=== PATIENT | female | born 1970 | race Caucasian/White ===

== ENCOUNTER 2016-11-02 07:51 | Day surgery (SDC) | payer BC, OTHER ==
[~2016-11-02 07:51] MED LIST: PROPOFOL INJ 200 MG/20 ML VIAL IV ONE
[2016-11-02 09:40] VITALS: BP 103/67
--- NOTE | 2016-11-02 13:03 | Operative Report ---
Operative Report DATE OF SURGERY: 11/02/16 Operative Report: The risks benefits and alternatives of the procedure explained to the patient in detail and informed consent is obtained that GIF Olympus video scope was inserted into the patient's mouth and hypopharynx the esophagus is identified intubated and insufflated the scope was then advanced through the esophagus stomach and duodenum retroflexion maneuver is done the esophagus stomach and first and second portions of the duodenum examined PREOPERATIVE DIAGNOSIS: Epigastric pain rule out peptic ulcer disease POSTOPERATIVE DIAGNOSIS: Gastritis status post biopsy rule out Helicobacter pylori OPERATION: EGD with biopsy ANESTHESIA: LMAC TISSUE REMOVED OR ALTERED: Gastric specimens x2 obtain rule out Helicobacter pylori COMPLICATIONS: None. ESTIMATED BLOOD LOSS: none. INTRAOPERATIVE FINDINGS: Normal esophagus. Antral gastritis. First and second portions of the duodenum are normal. PROCEDURE: The patient tolerated the procedure well. No immediate postprocedure complications are noted. Patient is discharged in good condition. Discharge date 11/02/2016. Discharge diet: Regular. Discharge activity: Regular. 2-3 week follow-up to discuss findings. We'll await on biopsies. Patient is instructed to go the emergency room or call the office should there be any further problems or questions.
== END 2016-11-02 09:45 | disposition home or self-care (01) ==
LOC: END 07:51
PROVIDERS: ATTEND Internal Medicine Gastroenterology
PROC: 0DB68ZX Excision of Stomach, Via Natural or Artificial Opening Endoscopic, Diagnostic (ICD-10-PCS; principal; 2016-11-02 09:30)
DX: K29.50 Unspecified chronic gastritis without bleeding (principal); I10 Essential (primary) hypertension; E11.9 Type 2 diabetes mellitus without complications; G35 Multiple sclerosis; L93.0 Discoid lupus erythematosus; M79.7 Fibromyalgia; D68.61 Antiphospholipid syndrome; M19.90 Unspecified osteoarthritis, unspecified site; Z79.51 Long term (current) use of inhaled steroids; Z79.899 Other long term (current) drug therapy; Z87.891 Personal history of nicotine dependence; Z79.01 Long term (current) use of anticoagulants
CPT/HCPCS: 43239; 82962; 88342 ×2; 88305 ×2; J2704; 740

== ENCOUNTER 2017-07-04 12:47 | Emergency (ER) | payer BC, MEDICARE ==
[2017-07-04] MEDS ORDERED: HYDROMORPHONE HCL INJ/PF 2 MG/ML AMPULE IV ONE (12:55)
--- NOTE | 2017-07-04 13:01 | ER Document Report ---
ED General - General Stated Complaint: FALL/HEAD PAIN Time Seen by Provider: 07/04/17 12:49 Information source: Patient, Emergency Med Personnel, [facility] Records TRAVEL OUTSIDE OF THE [place] IN LAST 30 DAYS: No - HPI Patient complains to provider of: fall Onset: Just prior to arrival Quality of pain: Dull Similar symptoms previously: No Recently seen / treated by doctor: No Notes: Patient is a 47-year-old female with history of MS, CVA, with resulting right sided deficit of motor and sensory involvement. Patient is able to ambulate and does sometimes use a walker. Patient was walking down her ramp outside [facility] when she slipped because the ramp was wet. Patient states she landed on the back of her head and her lower back. Patient complains of headache, lower back pain. Patient also states she had a seizure which was witnessed by her . Patient does have existing seizure disorder. Patient states that although her right leg is typically numb and weak, Today it feels like it is worse after the fall. patient is also concerned about her INR being too elevated due to some bruising on her abdominal wall that was present prior to the fall. - Related Data Allergies/Adverse Reactions: adhesive [Adhesive] Allergy (Severe, Verified 07/04/17 13:13) Blisters latex [Latex] Allergy (Severe, Verified 07/04/17 13:13) Hives polyethylene glycol 3350 [From Miralax] Allergy (Severe, Verified 07/04/17 13:13 ) na and v rash povidone-iodine [From Betadine] Allergy (Severe, Verified 07/04/17 13:13) Blisters Soap [From Betadine] Allergy (Severe, Verified 07/04/17 13:13) Blisters bee sting Allergy (Severe, Uncoded 07/04/17 13:13) Anaphylaxis hurricane spray Allergy (Severe, Uncoded 07/04/17 13:13) Shortness of Breath Past Medical History - General Information source: Patient, [facility] Records - Social History Smoking Status: Never Smoker Family History: Reviewed & Not Pertinent - Past Medical History Cardiac Medical History: Reports: Hx Hypercholesterolemia, Hx Hypertension Denies: Hx Coronary Artery Disease, Hx Heart Attack Pulmonary Medical History: Reports: Hx Pneumonia - hx of in past Denies: Hx Asthma, Hx Bronchitis, Hx COPD Neurological Medical History: Reports: Hx Cerebrovascular Accident - 2014, Hx Migraine, Hx Seizures - x1, poss seizure/stroke second time Endocrine Medical History: Reports: Hx Diabetes Mellitus Type 2 GI Medical History: Reports: Hx Gastroesophageal Reflux Disease Musculoskeltal Medical History: Reports Hx Arthritis - osteoarthritis, Reports Hx Fibromyalgia, Reports Hx Multiple Sclerosis Psychiatric Medical History: Reports: Hx Depression Past Surgical History: Reports: Hx Appendectomy, Hx Section - 2, Hx Cholecystectomy. Denies: Hx Hysterectomy - Immunizations Immunizations up to date: Yes Hx Diphtheria, Pertussis, Tetanus Vaccination: Yes Review of Systems - Review of Systems Neurological/Psychological: Seizure, Headaches -: Yes All other systems reviewed and negative Physical Exam - Vital signs Vitals: Resp BP Pulse Ox 15 142/85 H 99 07/04/17 12:57 07/04/17 12:57 07/04/17 12:57 Interpretation: Normal - Notes Notes: Patient is awake, alert, oriented 4. - General General appearance: Appears well, Alert - HEENT Head: Normocephalic, Atraumatic Eyes: Normal Pupils: PERRL - Respiratory Respiratory status: No respiratory distress Chest status: Nontender Breath sounds: Normal Chest palpation: Normal - Cardiovascular Rhythm: Regular Heart sounds: Normal auscultation Murmur: No - Abdominal Inspection: Normal Distension: No distension Bowel sounds: Normal Tenderness: Nontender Organomegaly: No organomegaly Notes: Superficial ecchymosis noted to the left abdominal wall. - Back Back: Normal, Nontender - Extremities General upper extremity: Normal inspection, Nontender, Normal color, Normal ROM , Normal temperature General lower extremity: Normal inspection, Nontender, Normal color, Normal ROM , Normal temperature, Normal weight bearing. No: Ja's sign - Neurological Neuro grossly intact: Yes Cognition: Normal Orientation: AAOx4 Michelle Coma Scale Eye Opening: Spontaneous Michelle Coma Scale Verbal: Oriented [place] Coma Scale Motor: Obeys Commands [place] Coma Scale Total: 15 Speech: Normal Motor strength normal: LUE, LLE Sensory: Normal Notes: Patient with baseline weakness of right upper and lower extremity. Also baseline paresthesia to the right leg. - Psychological Associated symptoms: Normal affect, Normal mood - Skin Skin Temperature: Warm Skin Moisture: Dry Skin Color: Normal Course - Re-evaluation Re-evalutation: 07/04/17 14:03 Lab results reviewed and discussed with patient. The INR is therapeutic. CT head negative per radiologist. Lumbar spine x-rays negative per radiologist. Patient states her pain is improved. She has oral Dilaudid to take at home for pain. Will discharge home - Vital Signs Vital signs: Temp Pulse Resp BP Pulse Ox 98.2 F 15 142/85 H 99 07/04/17 13:22 07/04/17 12:57 07/04/17 12:57 07/04/17 12:57 - Laboratory Result Diagrams: 07/04/17 13:00 Laboratory results interpreted by me: 07/04/17 07/04/17 13:00 13:00 WBC 11.7 H RDW 15.0 H Absolute Neutrophils 8.7 H PT 24.9 H - Diagnostic Test Radiology reviewed: Reports reviewed Radiology results interpreted by me: 07/04/17 14:03 CT head negative, lumbar spine x-ray negative Discharge - Discharge Clinical Impression: Fall, Closed head injury, Lumbar contusion Condition: Good Disposition: HOME, SELF-CARE Instructions: Head Injury Precautions ([facility]), Contusion ([facility]) Additional Instructions: Your INR was therapeutic at 2.12. Continue on your Dilaudid as needed for pain. Follow-up with your primary care doctor. Return to the emergency department if worse or for any other problems.
[2017-07-04 13:20] LABS: PROTHROMBIN TIME 24.9 SEC (11.4-15.4)
[2017-07-04 13:43] LABS: ABSOLUTE LYMPHOCYTES (AUTO) 2.3 10^3/uL (0.5-4.7); ABSOLUTE MONOCYTES (AUTO) 0.6 10^3/uL (0.1-1.4); ABSOLUTE NEUT (AUTO) 8.7 10^3/uL (1.7-8.2); BASOPHILS % (AUTO) 0.3 % (0-2); EOSINOPHILS % (AUTO) 0.3 % (0-6); LYMPHOCYTES % (AUTO) 19.6 % (13-45); MEAN CORPUSCULAR HEMOGLOBIN 28.6 pg (27.0-33.4); MEAN CORPUSCULAR HGB CONC 32.6 g/dL (32.0-36.0); MEAN CORPUSCULAR VOLUME 88 fl (80-97); MONOCYTES % (AUTO) 5.3 % (3-13); RED BLOOD COUNT 4.89 10^6/uL (3.72-5.28); SEGMENTED NEUTROPHILS % (AUTO) 74.5 % (42-78); WHITE BLOOD COUNT 11.7 10^3/uL (4.0-10.5)
--- NOTE | 2017-07-04 13:59 | RADIOLOGY REPORT (SQ) ---
EXAM DESCRIPTION: CT HEAD WITHOUT COMPLETED DATE/TIME: 07/04/2017 1:45 pm REASON FOR STUDY: fall, on coumadin COMPARISON: 06/07/2016 TECHNIQUE: Axial images acquired through the brain without intravenous contrast. Images reviewed wi th bone, brain and subdural windows. Images stored on PACS. All CT scanners at this facility use dose modulation, iterative reconstruction, and/or weight based d osing when appropriate to reduce radiation dose to as low as reasonably achievable (ALARA). [facility]: Dose Right [facility]: CareDose [facility]: Dose Right [facility]: Teradose 4D [facility]: [employer] RADIATION DOSE: Up-to-date CT equipment and radiation dose reduction techniques were employed. CTDIv ol: 64.6 mGy. DLP: 1034 mGy-cm. mGy. LIMITATIONS: None. FINDINGS: VENTRICLES: Normal size and contour. CEREBRUM: No masses. No hemorrhage. No midline shift. No evidence for acute infarction. Normal gra y/white matter differentiation. No areas of low density in the white matter. CEREBELLUM: No masses. No hemorrhage. No alteration of density. No evidence for acute infarction. EXTRAAXIAL SPACES: No fluid collections. No masses. ORBITS AND GLOBE: No intra- or extraconal masses. Normal contour of globe without masses. CALVARIUM: No fracture. PARANASAL SINUSES: No fluid or mucosal thickening. SOFT TISSUES: No mass or hematoma. OTHER: No other significant finding. IMPRESSION: NORMAL BRAIN CT WITHOUT CONTRAST. EVIDENCE OF ACUTE STROKE: NO. COMMENT: Quality ID # [id number]: Final reports with documentation of one or more dose reduction techniques (e.g., Automated exposure control, adjustment of the mA and/or kV according to patient size, use of iterative reconstruction technique) TECHNICAL DOCUMENTATION: JOB ID: [id number] [employer]- All Rights Reserved
--- NOTE | 2017-07-04 14:00 | RADIOLOGY REPORT (SQ) ---
EXAM DESCRIPTION: L SPINE 2 VIEWS COMPLETED DATE/TIME: 07/04/2017 1:50 pm REASON FOR STUDY: fall COMPARISON: None. NUMBER OF VIEWS: Three views. TECHNIQUE: AP, lateral and sacral radiographic images acquired of the lumbar spine. LIMITATIONS: None. FINDINGS: MINERALIZATION: Normal. SEGMENTATION: Normal. No transitional anatomy. ALIGNMENT: Normal. VERTEBRAE: Maintained height. No fracture or worrisome bone lesion. DISCS: Preserved height. No significant osteophytes or end plate irregularity. POSTERIOR ELEMENTS: Pedicles and facets are intact. No pars defect or posterior arch defects. HARDWARE: None in the spine. PARASPINAL SOFT TISSUES: Normal. PELVIS: Intact as visualized. No fractures or worrisome bone lesions. SI joints intact. OTHER: No other significant finding. IMPRESSION: NORMAL 3 VIEW LUMBAR SPINE. TECHNICAL DOCUMENTATION: JOB ID: [id number] [employer]- All Rights Reserved
[2017-07-04 14:21] VITALS: BP 119/71
== END 2017-07-04 14:21 | disposition home or self-care (01) ==
LOC: ER 12:47
DX: S09.90XA Unspecified injury of head, initial encounter (principal); S30.0XXA Contusion of lower back and pelvis, initial encounter; R51 Headache; M54.5 Low back pain; W10.2XXA Fall (on)(from) incline, initial encounter; I69.351 Hemiplegia and hemiparesis following cerebral infarction affecting right dominant side; G40.909 Epilepsy, unspecified, not intractable, without status epilepticus; R58 Hemorrhage, not elsewhere classified; E11.9 Type 2 diabetes mellitus without complications; I10 Essential (primary) hypertension; Z91.048 Other nonmedicinal substance allergy status; Z91.040 Latex allergy status; Z88.8 Allergy status to other drugs, medicaments and biological substances; Z88.3 Allergy status to other anti-infective agents; Z91.030 Bee allergy status
CPT/HCPCS: 99284; 96374; 36415; 85025; 85610; 72100; 70450; J1170

== ENCOUNTER 2017-12-06 08:15 | Emergency (ER) | payer BC, MEDICARE ==
[2017-12-06] MEDS ORDERED: MORPHINE SULFATE 10 MG/ML INJ IM ONE (08:50)
--- NOTE | 2017-12-06 09:32 | RADIOLOGY REPORT (SQ) ---
EXAM DESCRIPTION: KNEE RIGHT 2 VIEWS COMPLETED DATE/TIME: 12/06/2017 9:22 am REASON FOR STUDY: fall, head injury, neck fusion, on coumadiin COMPARISON: None. NUMBER OF VIEWS: Four views. TECHNIQUE: AP, lateral, and both oblique radiographic images acquired of the right knee. LIMITATIONS: None. FINDINGS: MINERALIZATION: Normal. BONES: Minimal osteophytic change medial knee joint. Peaking of intercondylar eminence. Osteophytic change patellofemoral joint. JOINT: No effusion. SOFT TISSUES: No soft tissue swelling. No radio-opaque foreign body. OTHER: No other significant finding. IMPRESSION: Degenerative arthritis right knee. TECHNICAL DOCUMENTATION: JOB ID: [id number] SC-[id number] 2010 [employer]- All Rights Reserved Reading location - IP/workstation name: [email or web address]
--- NOTE | 2017-12-06 09:39 | RADIOLOGY REPORT (SQ) ---
EXAM DESCRIPTION: HIP LEFT AP/LATERAL COMPLETED DATE/TIME: 12/06/2017 9:22 am REASON FOR STUDY: fall, pain COMPARISON: None. NUMBER OF VIEWS: Two views. TECHNIQUE: AP pelvis and additional frog-leg view of the left hip. LIMITATIONS: None. FINDINGS: MINERALIZATION: Normal. LEFT HIP: No fracture or dislocation. No worrisome bone lesions. RIGHT HIP: No fracture or dislocation. No worrisome bone lesions. PUBIS AND ISCHIUM: No fracture. PELVIS: No fracture. SACRUM: No fracture or dislocation. No worrisome bone lesions. LOWER LUMBAR SPINE: No fracture or dislocation. No worrisome bone lesions. No significant disc disea se. SOFT TISSUES: No findings. OTHER: No other significant finding. IMPRESSION: NEGATIVE STUDY OF THE LEFT HIP AND PELVIS. NO RADIOGRAPHIC EVIDENCE OF ACUTE INJURY. TECHNICAL DOCUMENTATION: JOB ID: [id number] [employer]- All Rights Reserved Reading location - IP/workstation name: [email or web address]
--- NOTE | 2017-12-06 09:40 | RADIOLOGY REPORT (SQ) ---
EXAM DESCRIPTION: SHOULDER LEFT 2 OR MORE VIEWS COMPLETED DATE/TIME: 12/06/2017 9:22 am REASON FOR STUDY: fall, head injury, neck fusion, on coumadiin COMPARISON: None. NUMBER OF VIEWS: Three views. TECHNIQUE: Internal rotation, external rotation, and Y view images acquired of the left shoulder. LIMITATIONS: None. FINDINGS: MINERALIZATION: Normal. BONES: There is degenerative change at the left AC joint. . JOINTS: No dislocation. VISUALIZED LUNGS AND RIBS: No pneumothorax. No rib fracture. SOFT TISSUES: No radiopaque foreign body. OTHER: Previous lower cervical fusion noted. IMPRESSION: Left AC arthrosis. Otherwise, normal left shoulder. TECHNICAL DOCUMENTATION: JOB ID: [id number] SC-[id number] 2010 [email or web address]- All Rights Reserved Reading location - IP/workstation name: [email or web address]
--- NOTE | 2017-12-06 09:57 | RADIOLOGY REPORT (SQ) ---
EXAM DESCRIPTION: CT HEAD WITHOUT COMPLETED DATE/TIME: 12/06/2017 9:43 am REASON FOR STUDY: fall, head injury, neck fusion, on coumadiin COMPARISON: 07/04/2017. TECHNIQUE: Axial images acquired through the brain without intravenous contrast. Images reviewed wi th bone, brain and subdural windows. All CT scanners at this facility use dose modulation, iterative reconstruction, and/or weight based d osing when appropriate to reduce radiation dose to as low as reasonably achievable (ALARA). [facility]: Dose Right [facility]: CareDose [facility]: Dose Right [facility]: Teradose 4D [facility]: [email or web address] RADIATION DOSE: CT Rad equipment meets quality standard of care and radiation dose reduction techniq ues were employed. CTDIvol: 53.2 mGy. DLP: 991 mGy-cm. mGy. LIMITATIONS: None. FINDINGS: VENTRICLES: Normal size and contour. CEREBRUM: No masses. No hemorrhage. No midline shift. No evidence for acute infarction. Normal gra y/white matter differentiation. No areas of low density in the white matter. CEREBELLUM: No masses. No hemorrhage. No alteration of density. No evidence for acute infarction. EXTRAAXIAL SPACES: No fluid collections. No masses. ORBITS AND GLOBE: No intra- or extraconal masses. Normal contour of globe without masses. CALVARIUM: No fracture. PARANASAL SINUSES: No fluid or mucosal thickening. SOFT TISSUES: No mass or hematoma. OTHER: No other significant finding. IMPRESSION: NORMAL BRAIN CT WITHOUT CONTRAST. EVIDENCE OF ACUTE STROKE: No COMMENT: Quality ID # 436: Final reports with documentation of one or more dose reduction techniques (e.g., Automated exposure control, adjustment of the mA and/or kV according to patient size, use of iterative reconstruction technique) TECHNICAL DOCUMENTATION: JOB ID: [id number] SC-69 2010 [email or web address]- All Rights Reserved Reading location - IP/workstation name: [email or web address]
--- NOTE | 2017-12-06 10:20 | RADIOLOGY REPORT (SQ) ---
EXAM DESCRIPTION: CT CERVICAL SPINE WITHOUT COMPLETED DATE/TIME: 12/06/2017 9:43 am REASON FOR STUDY: fall, head injury, neck fusion, on coumadin COMPARISON: None. TECHNIQUE: Axial images acquired through the cervical spine without intravenous contrast. Images re viewed with lung, soft tissue and bone windows. Reconstructed coronal and sagittal MPR images review ed. Images stored on PACS. All CT scanners at this facility use dose modulation, iterative reconstruction, and/or weight based d osing when appropriate to reduce radiation dose to as low as reasonably achievable (ALARA). [facility]: Dose Right [facility]: CareDose [facility]: Dose Right [facility]: Teradose 4D [facility]: [employer] RADIATION DOSE: CT Rad equipment meets quality standard of care and radiation dose reduction techniq ues were employed. CTDIvol: 23.1 mGy. DLP: 456 mGy-cm. mGy. LIMITATIONS: None. FINDINGS: ALIGNMENT: Anatomic. MINERALIZATION: Normal. VERTEBRAL BODIES: No fractures or dislocation. DISCS: No significant disc disease. FACETS, LATERAL MASSES, POSTERIOR ELEMENTS: No fractures. No dislocation. No acute findings. HARDWARE: There is an anterior plate at C5-6 VISUALIZED RIBS: No fractures. LUNG APICES AND SOFT TISSUES: No significant or acute findings. OTHER: No other significant finding. IMPRESSION: Surgical changes with no acute abnormality. TECHNICAL DOCUMENTATION: JOB ID: [id number] Quality ID # [id number]: Final reports with documentation of one or more dose reduction techniques (e.g., Au tomated exposure control, adjustment of the mA and/or kV according to patient size, use of iterative reconstruction technique) 2010 [employer]- All Rights Reserved Reading location - IP/workstation name: [email or web address]
--- NOTE | 2017-12-06 10:30 | ER Document Report ---
ED Fall - General Chief Complaint: Fall Stated Complaint: FALL/HEAD INJURY Time Seen by Provider: 12/06/17 08:39 Mode of Arrival: Medic Information source: Patient Notes: Patient is a 47-year-old female with antiphospholipid antibody syndrome who presents to the ER today for falling out of bed, rolling out of bed in the middle of her sleep last night, hitting her head on the hardwood floor next to the bed, complaining of left sided pain throughout her entire body as she did land on that side. Patient also states she thinks she caught her right knee on part of the bed that is wooden that is designed to keep her in the bed. Patient takes Coumadin for antiphospholipid antibody syndrome and checks her INR daily to every 2 days at home. Patient states her last INR was 2.0 yesterday. She denies any loss of consciousness, nausea, vomiting, blurred vision. Family in the room states that she is acting normally. TRAVEL OUTSIDE OF THE [place] IN LAST 30 DAYS: No - Related data Allergies/Adverse Reactions: adhesive [Adhesive] Allergy (Severe, Verified 07/04/17 13:13) Blisters latex [Latex] Allergy (Severe, Verified 07/04/17 13:13) Hives polyethylene glycol 3350 [From Miralax] Allergy (Severe, Verified 07/04/17 13:13 ) na and v rash povidone-iodine [From Betadine] Allergy (Severe, Verified 07/04/17 13:13) Blisters Soap [From Betadine] Allergy (Severe, Verified 07/04/17 13:13) Blisters Penicillins Allergy (Mild, Verified 12/06/17 08:17) Hives bee sting Allergy (Severe, Uncoded 07/04/17 13:13) Anaphylaxis hurricane spray Allergy (Severe, Uncoded 07/04/17 13:13) Shortness of Breath Past Medical History - General Information source: Patient - Social History Smoking Status: Current Every Day Smoker Chew tobacco use (# tins/day): No Frequency of alcohol use: None Drug Abuse: None Family History: Reviewed & Not Pertinent Patient has suicidal ideation: No Patient has homicidal ideation: No - Past Medical History Cardiac Medical History: Reports: Hx Hypercholesterolemia, Hx Hypertension Denies: Hx Coronary Artery Disease, Hx Heart Attack Pulmonary Medical History: Reports: Hx Pneumonia - hx of in past Denies: Hx Asthma, Hx Bronchitis, Hx COPD Neurological Medical History: Reports: Hx Cerebrovascular Accident - 2014, Hx Migraine, Hx Seizures - x1, poss seizure/stroke second time Endocrine Medical History: Reports: Hx Diabetes Mellitus Type 2 Renal/ Medical History: Denies: Hx Peritoneal Dialysis GI Medical History: Reports: Hx Gastroesophageal Reflux Disease Musculoskeltal Medical History: Reports Hx Arthritis - osteoarthritis, Reports Hx Fibromyalgia, Reports Hx Multiple Sclerosis Psychiatric Medical History: Reports: Hx Depression Past Surgical History: Reports: Hx Appendectomy, Hx Section - 2, Hx Cholecystectomy. Denies: Hx Hysterectomy - Immunizations Immunizations up to date: Yes Hx Diphtheria, Pertussis, Tetanus Vaccination: Yes Review of Systems - Review of Systems Constitutional: No symptoms reported EENT: No symptoms reported Cardiovascular: No symptoms reported Respiratory: No symptoms reported Gastrointestinal: No symptoms reported Genitourinary: No symptoms reported Female Genitourinary: No symptoms reported Musculoskeletal: See HPI Skin: No symptoms reported Hematologic/Lymphatic: No symptoms reported Neurological/Psychological: No symptoms reported Physical Exam - Vital signs Vitals: Temp Pulse Resp BP Pulse Ox 97.5 F 109 H 16 133/74 H 100 12/06/17 08:21 12/06/17 08:21 12/06/17 08:21 12/06/17 08:21 12/06/17 08:21 - Notes Notes: PHYSICAL EXAMINATION: GENERAL: In her own c-collar, in no acute distress. HEAD: Atraumatic, normocephalic. EYES: Pupils equal round and reactive to light, extraocular movements intact, sclera anicteric, conjunctiva are normal. NECK: Normal range of motion, supple without lymphadenopathy LUNGS: CTAB and equal. No wheezes rales or rhonchi. HEART: Regular rate and rhythm without murmurs ABDOMEN: Soft, no tenderness. No guarding, no rebound BACK: no vertebral tenderness, normal ROM GI/: no CVA tenderness EXTREMITIES: Tender to left shoulder, left hip, right medial knee, normal range of motion but with some pain, no pitting edema. No cyanosis. NEUROLOGICAL: Cranial nerves grossly intact. Normal sensory/motor exams. PSYCH: Normal mood, normal affect. SKIN: Warm, Dry, normal turgor, mild ecchymosis noted to the right medial knee Course - Re-evaluation Re-evalutation: 04/04/18 09:38 X-rays of the left hip, left shoulder, right knee negative for any acute pathology CT of the head and cervical spine negative for any acute pathology. Patient stable for discharge. Patient was given pain medication here in the ER , but does take OxyContin multiple times a day as part of her normal regimen. I advised her to continue that regimen as prescribed, I will not provide anything more for pain as there was no objective finding except for some bruising to her right knee today. - Vital Signs Vital signs: Temp Pulse Resp BP Pulse Ox 97.8 F 99 16 130/79 H 100 12/06/17 10:49 12/06/17 10:49 12/06/17 10:49 12/06/17 10:49 12/06/17 10:49 Discharge - Discharge Clinical Impression: Hip pain, left Head injury Qualifiers: Encounter type: initial encounter Qualified Code(s): S09.90XA - Unspecified injury of head, initial encounter Contusion of right knee Qualifiers: Encounter type: initial encounter Qualified Code(s): S80.01XA - Contusion of right knee, initial encounter Condition: Stable Disposition: HOME, SELF-CARE Additional Instructions: Return immediately for any new or worsening symptoms. Follow up with primary care provider, call tomorrow to make followup appointment. Referrals: JARON LYON MD [Primary Care Provider] - Follow up as needed
[2017-12-06 10:50] VITALS: BP 130/79
== END 2017-12-06 10:50 | disposition home or self-care (01) ==
LOC: ER 08:15
DX: S80.01XA Contusion of right knee, initial encounter (principal); S09.90XA Unspecified injury of head, initial encounter; M25.552 Pain in left hip; W06.XXXA Fall from bed, initial encounter; Y93.84 Activity, sleeping; I10 Essential (primary) hypertension; E11.9 Type 2 diabetes mellitus without complications; F17.200 Nicotine dependence, unspecified, uncomplicated; D68.61 Antiphospholipid syndrome; Z79.01 Long term (current) use of anticoagulants; Z79.891 Long term (current) use of opiate analgesic; Z91.048 Other nonmedicinal substance allergy status; Z91.040 Latex allergy status; Z88.8 Allergy status to other drugs, medicaments and biological substances; Z88.3 Allergy status to other anti-infective agents; Z88.0 Allergy status to penicillin; Z87.892 Personal history of anaphylaxis; Z91.030 Bee allergy status
CPT/HCPCS: 99284; 96372; 73502; 73560; 73030; 70450; 72125; J2270

== ENCOUNTER 2018-08-23 09:33 | Emergency (ER) | payer MEDICARE, OTHER ==
[2018-08-23] MEDS ORDERED: MORPHINE SULFATE 10 MG/ML INJ IM ONE (10:10)
--- NOTE | 2018-08-23 10:14 | ER Document Report ---
ED General - General Chief Complaint: Leg Swelling Stated Complaint: LEFT LEG PAIN, SWELLING Time Seen by Provider: 08/23/18 10:10 Mode of Arrival: Wheelchair Information source: Patient, REPLACED BY [facility] Records Notes: 48-year-old female presents with complaint of left lower extremity pain that started 5 days prior to arrival after a trip and fall landing on her left side. Patient states that she has had exquisite throbbing, tenderness along the left leg. She denies history of DVT, PE. She is currently on Coumadin and Lovenox for her lupus. She denies any head injury, preceding shortness of breath or chest pain. TRAVEL OUTSIDE OF THE [place] IN LAST 30 DAYS: No - HPI Onset: Last week Onset/Duration: Gradual, Persistent Quality of pain: Throbbing Severity: Moderate Associated symptoms: denies: Chest pain, Fever, Nausea, Vomiting, Shortness of breath Exacerbated by: Movement, Walking Relieved by: Denies Similar symptoms previously: No Recently seen / treated by doctor: No - Related Data Allergies/Adverse Reactions: adhesive [Adhesive] Allergy (Severe, Verified 08/23/18 09:46) Blisters latex [Latex] Allergy (Severe, Verified 08/23/18 09:46) Hives polyethylene glycol 3350 [From Miralax] Allergy (Severe, Verified 08/23/18 09:46 ) na and v rash povidone-iodine [From Betadine] Allergy (Severe, Verified 08/23/18 09:46) Blisters Soap [From Betadine] Allergy (Severe, Verified 08/23/18 09:46) Blisters Penicillins Allergy (Mild, Verified 08/23/18 09:46) Hives bee sting Allergy (Severe, Uncoded 08/23/18 09:46) Anaphylaxis hurricane spray Allergy (Severe, Uncoded 08/23/18 09:46) Shortness of Breath Past Medical History - General Information source: Patient, REPLACED BY [facility] Records - Social History Smoking Status: Former Smoker Chew tobacco use (# tins/day): No Frequency of alcohol use: None Drug Abuse: None Lives with: Spouse/Significant other Family History: Reviewed & Not Pertinent Patient has suicidal ideation: No Patient has homicidal ideation: No - Past Medical History Cardiac Medical History: Reports: Hx Hypercholesterolemia, Hx Hypertension Denies: Hx Coronary Artery Disease, Hx Heart Attack Pulmonary Medical History: Reports: Hx Pneumonia - hx of in past Denies: Hx Asthma, Hx Bronchitis, Hx COPD Neurological Medical History: Reports: Hx Cerebrovascular Accident - 2014, Hx Migraine, Hx Seizures - x1, poss seizure/stroke second time Endocrine Medical History: Reports: Hx Diabetes Mellitus Type 2 Renal/ Medical History: Denies: Hx Peritoneal Dialysis GI Medical History: Reports: Hx Gastroesophageal Reflux Disease Musculoskeletal Medical History: Reports Hx Arthritis - osteoarthritis, Reports Hx Fibromyalgia, Reports Hx Multiple Sclerosis Psychiatric Medical History: Reports: Hx Depression Past Surgical History: Reports: Hx Appendectomy, Hx Section - 2, Hx Cholecystectomy, Hx Gynecologic Surgery. Denies: Hx Hysterectomy - Immunizations Immunizations up to date: Yes Hx Diphtheria, Pertussis, Tetanus Vaccination: Yes Review of Systems - Review of Systems Notes: REVIEW OF SYSTEMS: CONSTITUTIONAL : Denies fever, chills, or sweats. Denies recent illness. Denies weight loss, recent hospitalizations. EENT: Denies visual changes, eye pain. Denies sore throat, oral lesions, difficulty swallowing. CARDIOVASCULAR: Denies chest pain. Denies palpitations. Denies lower extremity edema. RESPIRATORY: Denies cough. Denies shortness of breath, wheezing. GASTROINTESTINAL: Denies abdominal pain or distention. Denies nausea, vomiting , or diarrhea. Denies blood in vomitus, stools, or per rectum. Denies black, tarry stools. Denies constipation. GENITOURINARY: Denies difficulty urinating, painful urination, frequency, blood in urine, or vaginal discharge. MUSCULOSKELETAL: Denies back or neck pain or stiffness. SKIN: Denies rash, lesions or sores. HEMATOLOGIC : Denies easy bruising or bleeding. LYMPHATIC: Denies swollen glands. NEUROLOGICAL: Denies confusion or altered mental status. Denies loss of consciousness. Denies dizziness or lightheadedness. Denies headache. Denies weakness or paralysis. Denies problems difficulty with ambulation, slurred speech. Denies sensory loss, numbness, or tingling. Denies seizures. PSYCHIATRIC: Denies anxiety or stress. Denies depression, suicidal ideation, or homicidal ideation. Denies visual or auditory hallucinations. Physical Exam - Vital signs Vitals: Temp Pulse Resp BP Pulse Ox 98.5 F 93 20 109/65 99 08/23/18 09:38 08/23/18 09:38 08/23/18 09:38 08/23/18 09:38 08/23/18 09:38 - Notes Notes: PHYSICAL EXAMINATION: GENERAL: Well-appearing, well-nourished and in no acute distress. HEAD: Atraumatic, normocephalic. EYES: Pupils equal round and reactive to light, extraocular movements intact, conjunctiva are normal. ENT: Nares patent, oropharynx clear without exudates. Moist mucous membranes. NECK: Normal range of motion, supple without lymphadenopathy LUNGS: Breath sounds clear to auscultation bilaterally and equal. No wheezes rales or rhonchi. HEART: Regular rate and rhythm without murmurs ABDOMEN: Soft, nontender, nondistended abdomen. No guarding, no rebound. No masses appreciated. Female : deferred Musculoskeletal: Normal range of motion, no pitting or edema. No cyanosis. NEUROLOGICAL: Cranial nerves grossly intact. Normal speech, normal gait. Normal sensory, motor exams PSYCH: Normal mood, normal affect. SKIN: Warm, Dry, normal turgor, no rashes or lesions noted. Course - Re-evaluation Re-evalutation: 08/23/18 20:12 Laboratory 08/23/18 10:23 PT 28.5 H INR 2.54 Tibia/Fibula X-Ray 08/23/18 10:10 IMPRESSION: NEGATIVE STUDY OF THE LEFT TIBIA AND FIBULA. NO RADIOGRAPHIC EVIDENCE OF ACUTE INJURY. Venous Doppler Study 08/23/18 10:10 IMPRESSION: NO EVIDENCE OF DVT OR SVT IN THE LEFT LEG. Knee X-Ray 08/23/18 10:13 IMPRESSION: NEGATIVE STUDY OF THE LEFT KNEE. NO RADIOGRAPHIC EVIDENCE OF ACUTE INJURY. Temp Pulse Resp BP Pulse Ox 98.0 F 94 20 110/77 96 08/23/18 12:41 08/23/18 12:41 08/23/18 09:38 08/23/18 12:41 08/23/18 12:41 08/23/18 20:12 Patient presents with symptoms most consistent with an acute cellulitis. Vitals within normal limits. Patient does not meet sepsis criteria is overall very well in appearance. Imaging not consistent with DVT. Patient will be started on Bactrim at this time will discharge with return precautions and follow-up recommendations. Patient is tolerating p.o. She said no episodes of vomiting. Think that it is reasonable to attempt an outpatient course of antibiotics. Verbal discharge instructions given a the bedside and opportunity for questions given. Medication warnings reviewed. Patient is in agreement with this plan and has verbalized understanding of return precautions and the need for primary care follow-up in the next 24-72 hours. 08/23/18 20:15 08/23/18 20:16 - Vital Signs Vital signs: Temp Pulse Resp BP Pulse Ox 98.0 F 94 20 110/77 96 08/23/18 12:41 08/23/18 12:41 08/23/18 09:38 08/23/18 12:41 08/23/18 12:41 - Laboratory Laboratory results interpreted by me: 08/23/18 10:23 PT 28.5 H - Diagnostic Test Radiology reviewed: Image reviewed, Reports reviewed Discharge - Discharge Clinical Impression: Left leg pain, Left leg cellulitis Contusion Qualifiers: Encounter type: initial encounter Contusion area: knee Laterality: left Qualified Code(s): S80.02XA - Contusion of left knee, initial encounter Traumatic ecchymosis of left lower leg Qualifiers: Encounter type: initial encounter Qualified Code(s): S80.12XA - Contusion of left lower leg, initial encounter Condition: Good Disposition: HOME, SELF-CARE Instructions: Cellulitis ([facility]), Contusion ([facility]) Additional Instructions: The rash is likely due to infection of your skin. You need to take the antibiotics as prescribed. Do not stop even if the rash goes away until you have completed all the antibiotics. The area of redness was traced out here in the emergency department with a marking pen. You need to return to emergency department if the redness spreads outside of this area by more than 2 cm in any direction. You should also return if you develop fevers with temperature greater than 101, persistent vomiting, worsening pain, or have any other symptoms that are concerning to you. Please see your pain management physician for further pain control. Follow up with your [id number] hours for further care or return to the ED IMMEDIATELY if symptoms worsen or you have any concerns. If you cannot afford to follow up with your primary care physician a list of low cost clinics have been provided at the end of your discharge papers as well. Most prescribed medications have multiple side effects. The safest thing to do is when filling your prescription speak to your pharmacist regarding possible interactions with your normal home medications and over the counter medications such as Ibuprofen, Tylenol, Benadryl. If you experience any symptoms that cause you discomfort or concern you should discontinue the medication immediately and return to the emergency room or call your primary care physician. Prescriptions: Sulfamethoxazole/Trimethoprim [Bactrim Ds Tablet] 1 each PO BID 10 Days #20 tablet Referrals: JARON LYON MD [Primary Care Provider] - Follow up as needed
--- NOTE | 2018-08-23 10:49 | RADIOLOGY REPORT (SQ) ---
EXAM DESCRIPTION: TIBIA FIBULA LEFT COMPLETED DATE/TIME: 08/23/2018 10:39 am REASON FOR STUDY: fall anterior andrade and patellar pain, fall injury COMPARISON: Left knee films same date NUMBER OF VIEWS: Two views. TECHNIQUE: Two radiographic images acquired of the left tibia and fibula to include the knee and ank le in at least one projection. LIMITATIONS: None. FINDINGS: MINERALIZATION: Normal. BONES: No acute fracture or dislocation. No worrisome bone lesions. SOFT TISSUES: No obvious swelling or foreign body. OTHER: No other significant finding. IMPRESSION: NEGATIVE STUDY OF THE LEFT TIBIA AND FIBULA. NO RADIOGRAPHIC EVIDENCE OF ACUTE INJURY. TECHNICAL DOCUMENTATION: JOB ID: [id number] [employer]- All Rights Reserved Reading location - IP/workstation name: [email or web address]
[2018-08-23 10:51] LABS: INTERNATIONAL RATION (INR) 2.54; PROTHROMBIN TIME 28.5 SEC (11.4-15.4)
--- NOTE | 2018-08-23 10:51 | RADIOLOGY REPORT (SQ) ---
EXAM DESCRIPTION: KNEE LEFT 4 VIEW COMPLETED DATE/TIME: 08/23/2018 10:39 am REASON FOR STUDY: fall , injury, patellar and prepatellar pain COMPARISON: Left tibia and fibula two views same date NUMBER OF VIEWS: Four views. TECHNIQUE: AP, lateral, and both oblique radiographic images acquired of the left knee. LIMITATIONS: None. FINDINGS: MINERALIZATION: Normal. BONES: No acute fracture or dislocation. No worrisome bone lesions. JOINT: No effusion. SOFT TISSUES: No soft tissue swelling. No radio-opaque foreign body. OTHER: No other significant finding. IMPRESSION: NEGATIVE STUDY OF THE LEFT KNEE. NO RADIOGRAPHIC EVIDENCE OF ACUTE INJURY. TECHNICAL DOCUMENTATION: JOB ID: [id number] [employer]- All Rights Reserved Reading location - IP/workstation name: [email or web address]
[2018-08-23] MEDS ORDERED: HYDROMORPHONE HCL INJ/PF 2 MG/ML AMPULE IM ONE (12:12)
[2018-08-23] MEDS ORDERED: SULFAMETHOXAZOLE/TRIMETHOPRIM 800-160 MG TABLET PO ONE (12:12)
--- NOTE | 2018-08-23 12:19 | RADIOLOGY REPORT (SQ) ---
EXAM DESCRIPTION: VENOUS UNILATERAL LOWER COMPLETED DATE/TIME: 08/23/2018 12:09 pm REASON FOR STUDY: pain left leg / Hx clots COMPARISON: None. TECHNIQUE: Dynamic and static steven scale and color images acquired of the left leg venous system. Se lected spectral images acquired with additional compression and augmentation maneuvers. The contralat eral common femoral vein and saphenofemoral junction were also imaged. Images stored on PACS. LIMITATIONS: None. FINDINGS: COMMON FEMORAL: Normal phasicity, compression and augmentation. No visualized echogenic ma terial on steven scale. No defects on color images. FEMORAL: Normal compression and augmentation. No visualized echogenic material on steven scale. No defe cts on color images. POPLITEAL: Normal compression, augmentation. No visualized echogenic material on steven scale. No defec ts on color images. CALF VESSELS: Normal compression, augmentation. No visualized echogenic material on steven scale. No de fects on color images. GSV and SSV: Normal compression, augmentation. No visualized echogenic material on steven scale. No def ects on color images. ANY DEEP VENOUS INSUFFICIENCY: Not evaluated. ANY EVIDENCE OF POPLITEAL CYST: No. OTHER: No other significant finding. CONTRALATERAL COMMON FEMORAL VEIN AND SAPHENOFEMORAL JUNCTION: Normal phasicity, compression and augmentation. No visualized echogenic material on steven scale. No de fects on color images. IMPRESSION: NO EVIDENCE OF DVT OR SVT IN THE LEFT LEG. TECHNICAL DOCUMENTATION: JOB ID: [id number] [employer]- All Rights Reserved Reading location - IP/workstation name: [email or web address]
[2018-08-23 12:42] VITALS: BP 110/77
== END 2018-08-23 12:44 | disposition home or self-care (01) ==
LOC: ER 09:33
DX: S80.02XA Contusion of left knee, initial encounter (principal); S80.12XA Contusion of left lower leg, initial encounter; L03.116 Cellulitis of left lower limb; M79.89 Other specified soft tissue disorders; W01.0XXA Fall on same level from slipping, tripping and stumbling without subsequent striking against object, initial encounter; E78.00 Pure hypercholesterolemia, unspecified; I10 Essential (primary) hypertension; E11.9 Type 2 diabetes mellitus without complications; Z91.040 Latex allergy status; Z88.0 Allergy status to penicillin; Z86.73 Personal history of transient ischemic attack (TIA), and cerebral infarction without residual deficits; Z79.02 Long term (current) use of antithrombotics/antiplatelets; Z90.49 Acquired absence of other specified parts of digestive tract
CPT/HCPCS: 99284; 96372; 36415; 85610; 93971; 73564; 73590; J2270; J1170; A9270

== ENCOUNTER 2018-08-31 09:35 | Inpatient (IN) | payer MEDICARE, OTHER ==
[2018-08-31] MEDS ORDERED: CEFTRIAXONE 1 GM/D5W RTU 1 GM/50 ML RTUPB IV ONE (10:17)
--- NOTE | 2018-08-31 10:38 | ER Document Report ---
ED Medical Screen (RME) - General TRAVEL OUTSIDE OF THE [place] IN LAST 30 DAYS: No <IVELISSE SEALS - Last Filed: 08/31/18 10:25> <CHARAN LECHUGA - Last Filed: 08/31/18 12:06> - General Chief Complaint: Leg Pain Stated Complaint: LEG PAIN Time Seen by Provider: 08/31/18 10:10 Notes: 48 year old male with complaints of a fall that occurred about 2 weeks ago. Patient states she landed on her left knee during this fall. Patient states that she was seen here on 08/24 and was sent home on Bactrim. Patient states she had a rash at that point and it was "splotchy" but after starting the bactrim the "splotchiness" disappears and turned to an "all over redness". Patient states she had a similar RLE rash in the past. I have greeted and performed a rapid initial assessment of this patient. A comprehensive ED assessment and evaluation of the patient, analysis of test results, and completion of the medical decision making process will be conducted by additional ED providers. Review of systems: Musculoskeletal: LLE leg pain Skin: LLE Rash PHYSICAL EXAM GENERAL: Alert, interacts well. No acute distress. HEAD: Normocephalic, atraumatic. EYES: Pupils equal, round, and reactive to light. Extraocular movements intact. ENT: Oral mucosa moist, tongue midline. NECK: Full range of motion. Supple. Trachea midline. LUNGS: No respiratory distress. EXTREMITIES: Grossly swollen left proximal andrade. Unable to visualize the left knee secondary to pants. NEUROLOGICAL: Alert and oriented x3. Normal speech. PSYCH: Normal affect, normal mood. SKIN: Warm and dry. Erythema distal to the swelling on the left lower extremity. (IVELISSE SEALS) - Related Data Allergies/Adverse Reactions: adhesive [Adhesive] Allergy (Severe, Verified 08/31/18 10:15) Blisters latex [Latex] Allergy (Severe, Verified 08/31/18 10:15) Hives polyethylene glycol 3350 [From Miralax] Allergy (Severe, Verified 08/31/18 10:15) na and v rash povidone-iodine [From Betadine] Allergy (Severe, Verified 08/31/18 10:15) Blisters Soap [From Betadine] Allergy (Severe, Verified 08/31/18 10:15) Blisters Penicillins Allergy (Mild, Verified 08/31/18 10:15) Hives ciprofloxacin Allergy (Verified 08/31/18 10:15) levofloxacin [From Levaquin] Allergy (Verified 08/31/18 10:15) bee sting Allergy (Severe, Uncoded 08/31/18 10:15) Anaphylaxis hurricane spray Allergy (Severe, Uncoded 08/31/18 10:15) Shortness of Breath Past Medical History - Social History Chew tobacco use (# tins/day): No Frequency of alcohol use: None Drug Abuse: None - Past Medical History Cardiac Medical History: Reports: Hx Hypercholesterolemia, Hx Hypertension Denies: Hx Coronary Artery Disease, Hx Heart Attack Pulmonary Medical History: Reports: Hx Pneumonia - hx of in past Denies: Hx Asthma, Hx Bronchitis, Hx COPD Neurological Medical History: Reports: Hx Cerebrovascular Accident - 2014, Hx Migraine, Hx Seizures - x1, poss seizure/stroke second time Endocrine Medical History: Reports: Hx Diabetes Mellitus Type 2 Renal/ Medical History: Denies: Hx Peritoneal Dialysis GI Medical History: Reports: Hx Gastroesophageal Reflux Disease Musculoskeltal Medical History: Reports Hx Arthritis - osteoarthritis, Reports Hx Fibromyalgia, Reports Hx Multiple Sclerosis Psychiatric Medical History: Reports: Hx Depression Past Surgical History: Reports: Hx Appendectomy, Hx Section - 2, Hx Cholecystectomy, Hx Gynecologic Surgery. Denies: Hx Hysterectomy - Immunizations Immunizations up to date: Yes Hx Diphtheria, Pertussis, Tetanus Vaccination: Yes History of Influenza Vaccine for 06/2017 - 11/2017 Season: No <IVELISSE SEALS - Last Filed: 08/31/18 10:25> - Vital signs Vitals: Temp Pulse Resp BP Pulse Ox 99.1 F 102 H 16 118/70 96 08/31/18 09:39 08/31/18 09:39 08/31/18 09:39 08/31/18 09:39 08/31/18 09:39 Course - Laboratory Result Diagrams: 08/31/18 10:38 08/31/18 10:38 <CHARAN LECHUGA - Last Filed: 08/31/18 12:06> - Vital Signs Vital signs: Temp Pulse Resp BP Pulse Ox 99.1 F 102 H 16 118/70 96 08/31/18 09:39 08/31/18 09:39 08/31/18 09:39 12/26/18 09:39 08/31/18 09:39 - Laboratory Laboratory results interpreted by me: 08/31/18 08/31/18 10:38 10:38 RBC 3.71 L Hgb 11.1 L Hct 32.9 L RDW 17.3 H Glucose 136 H Doctor's Discharge <IVELISSE SEALS - Last Filed: 08/31/18 10:25> <CHARAN LECHUGA - Last Filed: 08/31/18 12:06> - Discharge Referrals: JARON LYON MD [Primary Care Provider] - Follow up as needed Scribe Documentation - Scribe Written by Scribe:: Nabila Su, 08/31/2018 1038 acting as scribe for :: Selena <IVELISSE SEALS - Last Filed: 08/31/18 10:25>
[2018-08-31 10:59] LABS: ABSOLUTE BASOPHILS # (AUTO) 0.1 10^3/uL (0.0-0.2); ABSOLUTE EOSINOPHILS # (AUTO) 0.3 10^3/uL (0.0-0.6); ABSOLUTE LYMPHOCYTES (AUTO) 3.5 10^3/uL (0.5-4.7); ABSOLUTE MONOCYTES (AUTO) 0.8 10^3/uL (0.1-1.4); ABSOLUTE NEUT (AUTO) 5.6 10^3/uL (1.7-8.2); BASOPHILS % (AUTO) 0.7 % (0-2); EOSINOPHILS % (AUTO) 2.6 % (0-6); HEMATOCRIT 32.9 % (36.0-47.0); HEMOGLOBIN 11.1 g/dL (12.0-15.5); LYMPHOCYTES % (AUTO) 34.3 % (13-45); MEAN CORPUSCULAR HEMOGLOBIN 29.8 pg (27.0-33.4); MEAN CORPUSCULAR HGB CONC 33.7 g/dL (32.0-36.0); MEAN CORPUSCULAR VOLUME 89 fl (80-97); MONOCYTES % (AUTO) 7.4 % (3-13); PLATELET COUNT 271 10^3/uL (150-450); RED BLOOD COUNT 3.71 10^6/uL (3.72-5.28); RED CELL DISTRIBUTION WIDTH 17.3 % (11.5-14.0); TOTAL CELLS COUNTED % (AUTO) 100 %; WHITE BLOOD COUNT 10.2 10^3/uL (4.0-10.5)
[2018-08-31 11:20] LABS: ALANINE AMINOTRANSFERASE 39 U/L (9-52); ALBUMIN 3.7 g/dL (3.5-5.0); ALKALINE PHOSPHATASE 96 U/L (38-126); ANION GAP 9 (5-19); ASPARTATE AMINO TRANSFERASE 19 U/L (14-36); BILIRUBIN,DIRECT 0.3 mg/dL (0.0-0.4); BILIRUBIN,TOTAL 0.3 mg/dL (0.2-1.3); BLOOD UREA NITROGEN 14 mg/dL (7-20); CALCIUM 9.1 mg/dL (8.4-10.2); CARBON DIOXIDE 29 mmol/L (22-30); CHLORIDE 101 mmol/L (98-107); GLUCOSE 136 mg/dL (75-110); POTASSIUM 4.3 mmol/L (3.6-5.0); SODIUM 139.3 mmol/L (137-145); TOTAL PROTEIN 6.8 g/dL (6.3-8.2)
[2018-08-31] MEDS ORDERED: HYDROMORPHONE HCL INJ/PF 2 MG/ML AMPULE IV ONE (11:38)
--- NOTE | 2018-08-31 11:39 | ER Document Report ---
ED General <DAMIAN COOLEY - Last Filed: 08/31/18 12:46> - General Mode of Arrival: Ambulatory Information source: Patient TRAVEL OUTSIDE OF THE [place] IN LAST 30 DAYS: No <REBECCA HYLTON - Last Filed: 08/31/18 13:33> - General Chief Complaint: Leg Pain Stated Complaint: LEG PAIN Time Seen by Provider: 08/31/18 10:10 Notes: Patient is a 48 year old female with HLD, diabetes type 2 , GERD, fibromyalgia, arthritis,Lupus, Antiphospholipid antibody syndrome presents to the emergency department complaining of redness and pain to the left leg. Patient states approximately 2 weeks ago she fell and hit her left leg just below the knee. She states she soon developed a red rash and swelling and reported to the emergency department on 08/23/2018 and discharged with Bactrim. Patient states the symptoms have worsened since then. She states she had similar symptoms in the past and was diagnosed with a strep infection of the right leg and admitted into the hospital for five days. Patient states she is in a lot of pain and asks for Dilaudid. Patient states her PCP is Dr. Edison Pickett. She is currently prescribed Coumadin, 100 mg of Nucynta 4x daily for chronic pain management. She is also prescribed Lovenox if her INR drops below 2.0. (REBECCA HYLTON) - Related Data Allergies/Adverse Reactions: adhesive [Adhesive] Allergy (Severe, Verified 08/31/18 10:15) Blisters latex [Latex] Allergy (Severe, Verified 08/31/18 10:15) Hives polyethylene glycol 3350 [From Miralax] Allergy (Severe, Verified 08/31/18 10:15) na and v rash povidone-iodine [From Betadine] Allergy (Severe, Verified 08/31/18 10:15) Blisters Soap [From Betadine] Allergy (Severe, Verified 08/31/18 10:15) Blisters Penicillins Allergy (Mild, Verified 08/31/18 10:15) Hives ciprofloxacin Allergy (Verified 08/31/18 10:15) levofloxacin [From Levaquin] Allergy (Verified 08/31/18 10:15) bee sting Allergy (Severe, Uncoded 08/31/18 10:15) Anaphylaxis hurricane spray Allergy (Severe, Uncoded 08/31/18 10:15) Shortness of Breath Past Medical History - General Information source: Patient - Social History Smoking Status: Never Smoker Chew tobacco use (# tins/day): No Frequency of alcohol use: None Drug Abuse: None Family History: Reviewed & Not Pertinent Patient has suicidal ideation: No Patient has homicidal ideation: No - Past Medical History Cardiac Medical History: Reports: Hx Hypercholesterolemia, Hx Hypertension Pulmonary Medical History: Reports: Hx Pneumonia - hx of in past Neurological Medical History: Reports: Hx Cerebrovascular Accident - 2014, Hx Migraine, Hx Seizures - x1, poss seizure/stroke second time Endocrine Medical History: Reports: Hx Diabetes Mellitus Type 2 GI Medical History: Reports: Hx Gastroesophageal Reflux Disease Musculoskeletal Medical History: Reports Hx Arthritis - osteoarthritis, Reports Hx Fibromyalgia, Reports Hx Multiple Sclerosis Psychiatric Medical History: Reports: Hx Depression Past Surgical History: Reports: Hx Appendectomy, Hx Section - 2, Hx Cholecystectomy, Hx Gynecologic Surgery - Immunizations Immunizations up to date: Yes Hx Diphtheria, Pertussis, Tetanus Vaccination: Yes <REBECCA HYLTON - Last Filed: 08/31/18 13:33> - Medical History Notes: Antiphospholipid antibody syndrome. Lupus. (REBECCA HYLTON) Review of Systems - Review of Systems Constitutional: No symptoms reported EENT: No symptoms reported Cardiovascular: No symptoms reported Respiratory: No symptoms reported Gastrointestinal: No symptoms reported Genitourinary: No symptoms reported Female Genitourinary: No symptoms reported Musculoskeletal: See HPI Skin: See HPI Hematologic/Lymphatic: No symptoms reported Neurological/Psychological: No symptoms reported -: Yes All other systems reviewed and negative <REBECCA HYLTON - Last Filed: 08/31/18 13:33> Physical Exam <REBECCA HYLTON - Last Filed: 08/31/18 13:33> - Vital signs Vitals: Temp Pulse Resp BP Pulse Ox 99.1 F 102 H 16 118/70 96 08/31/18 09:39 08/31/18 09:39 08/31/18 09:39 08/31/18 09:39 08/31/18 09:39 - Notes Notes: GENERAL: Alert, interacts well. No acute distress. HEAD: Normocephalic, atraumatic. EYES: Pupils equal, round, and reactive to light. Extraocular movements intact. ENT: Oral mucosa moist, tongue midline. NECK: Full range of motion. Supple. Trachea midline. LUNGS: Clear to auscultation bilaterally, no wheezes, rales, or rhonchi. No respiratory distress. HEART: Regular rate and rhythm. No murmurs, gallops, or rubs. ABDOMEN: Soft, morbidly obese, non-tender. Non-distended. Bowel sounds present in all 4 quadrants. EXTREMITIES: Moves all 4 extremities spontaneously. Left proximal anterior lateral tibia is swollen and erythematous, distally there is blotchy erythema. Erythema to the left lateral ankle and dorsal lateral foot. Pitting edema to the left ankle and foot. Warm to touch. NEUROLOGICAL: Alert and oriented x3. Normal speech. PSYCH: Normal affect, normal mood. SKIN: Warm, dry, normal turgor. No rashes or lesions noted. (REBECCA HYLTON) Course - Laboratory Result Diagrams: 08/31/18 10:38 08/31/18 10:38 - Consults Dr. Mena Time consulted: 12:50 Consulted provider: will come to ER <DAMIAN COOLEY - Last Filed: 08/31/18 12:46> - Laboratory Result Diagrams: 08/31/18 10:38 08/31/18 10:38 <REBECCA HYLTON - Last Filed: 08/31/18 13:33> - Vital Signs Vital signs: Temp Pulse Resp BP Pulse Ox 99.1 F 102 H 16 118/70 96 08/31/18 09:39 08/31/18 09:39 08/31/18 09:39 08/31/18 09:39 08/31/18 09:39 - Laboratory Laboratory results interpreted by me: 08/31/18 08/31/18 08/31/18 10:38 10:38 12:14 RBC 3.71 L Hgb 11.1 L Hct 32.9 L RDW 17.3 H PT 50.1 H* INR 5.19 H* Glucose 136 H Discharge - Discharge Admitting Provider: Hospitalist Unit Admitted: Medical Floor <DAMIAN COOLEY - Last Filed: 08/31/18 12:46> <REBECCA HYLTON - Last Filed: 08/31/18 13:33> - Discharge Clinical Impression: Cellulitis of right anterior lower leg, Antiphospholipid antibody syndrome, Anticoagulated on Coumadin Diabetes mellitus type II, controlled Qualifiers: Diabetes mellitus oil heaterman insulin use: unspecified oil heaterman insulin use status Diabetes mellitus complication status: with unspecified complications Qualified Code(s): E11.8 - Type 2 diabetes mellitus with unspecified complications Condition: Stable Disposition: ADMITTED INPATIENT Scribe Attestation: 08/31/18 12:50 I personally performed the services described in the documentation, reviewed and edited the documentation which was dictated to the scribe in my presence, and it accurately records my words and actions. (DAMIAN COOLEY)
[2018-08-31 13:02] LABS: INTERNATIONAL RATION (INR) 5.19
[2018-08-31 13:03] LABS: PROTHROMBIN TIME 50.1 SEC (11.4-15.4)
[2018-08-31] MEDS ORDERED: ACETAMINOPHEN 325 MG TABLET PO PRN (13:48)
[2018-08-31] MEDS ORDERED: ALBUTEROL SULFATE 0.042% NEB (1.25 MG/3 ML) AMPUL NEB PRN (13:55)
[2018-08-31] MEDS ORDERED: (PENDING PHARMACY ID) (Meclizine Hcl [Meclizine Hcl] 25 MG) PO SCH (14:00)
[2018-08-31] MEDS ORDERED: CEFAZOLIN INJ 1 GM VIAL IV SCH (14:00)
[2018-08-31] MEDS ORDERED: INSULIN REG, HUMAN 100 UNIT/ML 3 ML VIAL (PYX) SUBCUT PRN (14:03)
[2018-08-31] MEDS ORDERED: DEXTROSE 50%-WATER 25 GM/50 ML DISP.SYRIN IV PRN ×2 (14:03)
[2018-08-31] MEDS ORDERED: DEXTROSE 40% GEL 15 GM TUBE PO PRN ×2 (14:03)
[2018-08-31] MEDS ORDERED: GLUCAGON,HUMAN RECOMB 1 MG INJ IM PRN (14:03)
[2018-08-31] MEDS ORDERED: HYDROMORPHONE HCL INJ/PF 2 MG/ML AMPULE IV PRN (14:04)
--- NOTE | 2018-08-31 14:27 | PDOC H&P ---
History of Present Illness Admission Date/PCP: 08/31/18 13:02 JARON LYON MD Patient complains of: Left lower leg swelling and redness History of Present Illness: MIGUEL JONES is a 48 year old female with history of morbid obesity, SLE, antiphospholipid antibody, multiple sclerosis, diabetes, hypertension, anxiety, depression, fibromyalgia, degenerative disc disease came to the emergency room today with complaints of worsening left lower leg swelling redness and pain for the last 2 weeks. She was here in the emergency room on of this month was given Bactrim and apparently the medication did not help her at all and came to the emergency room again today with worsening of the symptoms. She is given the history of low-grade fever. Pain scale according to her is 10 x 10. These things started after a fall injured her left lower leg. Chills and Reiger's. Headaches dizziness. Is given the history of previous right lower leg cellulitis with strep infection. She is also given the history of chronic pain and goes to the pain clinic. Emergency room blood cultures was done patient was started on IV Rocephin medical consult was called for admission. According to the patient previous admission was done ultrasound was done to rule out DVT. Lately those tests came back normal. Past Medical History Cardiac Medical History: Reports: Hyperlipidema, Hypertension Denies: Coronary Artery Disease, Myocardial Infarction Pulmonary Medical History: Reports: Pneumonia - hx of in past Denies: Asthma, Bronchitis, Chronic Obstructive Pulmonary Disease (COPD) Neurological Medical History: Reports: Migraine, Seizures - x1, poss seizure/stroke second time Endocrine Medical History: Reports: Diabetes Mellitus Type 2 GI Medical History: Reports: Gastroesophageal Reflux Disease Musculoskeltal Medical History: Reports: Arthritis - osteoarthritis, Fibromyalgia Psychiatric Medical History: Reports: Depression Hematology: Reports: Anemia Past Surgical History Past Surgical History: Reports: Appendectomy, Section - 2, Cholecystectomy Denies: Hysterectomy Social History Smoking Status: Never Smoker Frequency of Alcohol Use: None Hx Recreational Drug Use: No Hx Prescription Drug Abuse: No - Advance Directive Resuscitation Status: Full Code Family History Family History: Reviewed & Not Pertinent Parental Family History Reviewed: Yes Children Family History Reviewed: Yes Sibling(s) Family History Reviewed.: Yes Medication/Allergy Home Medications: Albuterol Sulfate [Proair HFA Inhalation Aerosol 8.5 gm MDI] 1 puff IH Q6HP PRN 08/31/18 Amantadine HCl [Symmetrel 100 mg Capsule] 100 mg PO QAM 08/31/18 Aripiprazole [Abilify 2 mg Tablet] 2 mg PO DAILY 08/31/18 Atorvastatin Calcium [Lipitor 20 mg Tablet] 20 mg PO QHS 08/31/18 Baclofen [Baclofen 10 mg Tablet] 10 mg PO Q8 08/31/18 Dexlansoprazole [Dexilant 60 mg Capsule] 60 mg PO QAM 08/31/18 Gabapentin [Neurontin] 1,200 mg PO Q8 08/31/18 Insulin Aspart [Novolog Flexpen] 8 units SQ MEALS 08/31/18 Insulin Glargine,Hum.rec.anlog [Lantus Insulin 100 Unit/mL] 34 units SQ QHS 08/31/18 Liraglutide [Victoza 2-Adrien] 1.8 mg SQ DAILY 08/31/18 Lisinopril [Zestril] 5 mg PO QAM 08/31/18 Metoprolol Tartrate [Lopressor 25 mg Tablet] 12.5 mg PO Q12 08/31/18 Suvorexant [Belsomra] 20 mg PO HSP PRN 08/31/18 Tapentadol HCl [Nucynta] 100 mg PO Q6HP PRN 08/31/18 Venlafaxine HCl [Venlafaxine HCl ER] 150 mg PO DAILY 08/31/18 Warfarin Sodium [Coumadin 2.5 mg Tablet] 2.5 mg PO SUMOWEFR@1000 08/31/18 Warfarin Sodium [Coumadin 5 mg Tablet] 5 mg PO DAILY 08/31/18 Allergies/Adverse Reactions: adhesive [Adhesive] Allergy (Severe, Verified 08/31/18 10:15) Blisters latex [Latex] Allergy (Severe, Verified 08/31/18 10:15) Hives polyethylene glycol 3350 [From Miralax] Allergy (Severe, Verified 08/31/18 10:15) na and v rash povidone-iodine [From Betadine] Allergy (Severe, Verified 08/31/18 10:15) Blisters Soap [From Betadine] Allergy (Severe, Verified 08/31/18 10:15) Blisters Penicillins Allergy (Mild, Verified 08/31/18 10:15) Hives ciprofloxacin Allergy (Verified 08/31/18 10:15) levofloxacin [From Levaquin] Allergy (Verified 08/31/18 10:15) bee sting Allergy (Severe, Uncoded 08/31/18 10:15) Anaphylaxis hurricane spray Allergy (Severe, Uncoded 08/31/18 10:15) Shortness of Breath Review of Systems Constitutional: PRESENT: fatigue, weakness. ABSENT: fever(s), headache(s), weight gain, weight loss Cardiovascular: ABSENT: chest pain, dyspnea on exertion, edema Respiratory: ABSENT: dyspnea Gastrointestinal: ABSENT: constipation, diarrhea, nausea, vomiting Genitourinary: ABSENT: dysuria, hematuria Musculoskeletal: PRESENT: as per HPI, other - lt lower leg swelling and pain Neurological: ABSENT: abnormal gait, abnormal speech, confusion, dizziness, focal weakness, syncope Psychiatric: ABSENT: anxiety, depression, homidical ideation, suicidal ideation Physical Exam Vital Signs: Temp Pulse Resp BP Pulse Ox 99.1 F 102 H 16 118/70 96 08/31/18 09:39 08/31/18 09:39 08/31/18 09:39 08/31/18 09:39 08/31/18 09:39 Intake & Output 08/30/18 08/31/18 09/01/18 06:59 06:59 06:59 Intake Total 50 Balance 50 Weight 122.3 kg General appearance: PRESENT: mild distress Head exam: PRESENT: atraumatic Eye exam: PRESENT: PERRLA Neck exam: ABSENT: carotid bruit, JVD, lymphadenopathy, thyromegaly Respiratory exam: PRESENT: clear to auscultation lorelei. ABSENT: rales, rhonchi, wheezes Cardiovascular exam: PRESENT: RRR. ABSENT: diastolic murmur, rubs, systolic murmur GI/Abdominal exam: PRESENT: normal bowel sounds, soft. ABSENT: distended, guarding, mass, organolmegaly, rebound, tenderness Extremities exam: PRESENT: other - Left lower leg swelling with erythema increased warmth to touch and extremely tender to touch. Neurological exam: PRESENT: alert, awake, oriented to person, oriented to place, oriented to time, oriented to situation, CN II-XII grossly intact. ABSENT: motor sensory deficit Psychiatric exam: PRESENT: appropriate affect, normal mood. ABSENT: homicidal ideation, suicidal ideation Results Laboratory Results: 08/31/18 10:38 08/31/18 10:38 08/31/18 08/31/18 10:38 10:38 WBC 10.2 RBC 3.71 L Hgb 11.1 L Hct 32.9 L MCV 89 MCH 29.8 MCHC 33.7 RDW 17.3 H Plt Count 271 Seg Neutrophils % 55.0 Lymphocytes % 34.3 Monocytes % 7.4 Eosinophils % 2.6 Basophils % 0.7 Absolute Neutrophils 5.6 Absolute Lymphocytes 3.5 Absolute Monocytes 0.8 Absolute Eosinophils 0.3 Absolute Basophils 0.1 Sodium 139.3 Potassium 4.3 Chloride 101 Carbon Dioxide 29 Anion Gap 9 BUN 14 Creatinine 0.65 Est GFR ( Amer) > 60 Est GFR (Non-Af Amer) > 60 Glucose 136 H Calcium 9.1 Total Bilirubin 0.3 AST 19 ALT 39 Alkaline Phosphatase 96 Total Protein 6.8 Albumin 3.7 Assessment & Plan - Diagnosis (1) Cellulitis of left leg Is this a current diagnosis for this admission?: Yes Plan: 08/31/2018-the plan is to put the patient in medical floor as an inpatient blood cultures were sent. To start on Ancef 1 g IV every 8 hours as per the ID recommendations. X-ray of the left lower leg and ultrasound was ordered to rule out osteomyelitis and DVT. And is to resume her home medications. She was placed on Dilaudid 1 mg IV every 6 as needed for pain. My opinion patient may need to stay at least 3-4 days in the hospital for IV antibiotic therapy. (2) Antiphospholipid antibody syndrome Is this a current diagnosis for this admission?: Yes Plan: 08/31/2018 patient is on warfarin for antiphospholipid antibody syndrome INR came back as 5.19. We are going to hold warfarin for now and check INR on daily basis. (3) Diabetes mellitus type II, controlled Qualifiers: Diabetes mellitus complex case manager insulin use: unspecified complex case manager insulin use status Diabetes mellitus complication status: with unspecified complications Qualified Code(s): E11.8 - Type 2 diabetes mellitus with unspecified complications Is this a current diagnosis for this admission?: Yes Plan: 08/31/2018 plan is to put her on sliding scale, diabetic diet, check hemoglobin A1c tomorrow. The latest blood sugar is 136. (4) Morbid obesity with BMI of 40.0-44.9, adult Is this a current diagnosis for this admission?: Yes Plan: 08/31/2018 patient BMI is more than 45 diet exercise lifestyle modification were encouraged. Dietary consult was requested. (5) Hypertension Is this a current diagnosis for this admission?: Yes Plan: 08/31/2018 patient's blood pressure today is 113/64 plan is to resume home medications. (6) Chronic pain syndrome Is this a current diagnosis for this admission?: Yes Plan: 08/31/2018 patient has chronic pain syndrome plan is to restart her hydromorphone 8 mg p.o. nightly and also started on Dilaudid 1 mg IV every 6 as needed for pain. - Time Time Spent: 50 to 70 Minutes Critical Time spent with patient: Less than 15 minutes Medications reviewed and adjusted accordingly: Yes Anticipated discharge: Home
[2018-08-31 14:31] LABS: PROTHROMBIN TIME 51.7 SEC (11.4-15.4)
--- NOTE | 2018-08-31 15:13 | RADIOLOGY REPORT (SQ) ---
EXAM DESCRIPTION: TIBIA FIBULA LEFT COMPLETED DATE/TIME: 08/31/2018 3:01 pm REASON FOR STUDY: rt leg swelling fall injury left leg pain last week, continued left leg swelling COMPARISON: None. NUMBER OF VIEWS: Two views. TECHNIQUE: Two radiographic images acquired of the left tibia and fibula to include the knee and ank le in at least one projection. LIMITATIONS: None. FINDINGS: MINERALIZATION: Normal. BONES: No acute fracture or dislocation. No worrisome bone lesions. SOFT TISSUES: No radiopaque foreign body or soft tissue gas. There is subcutaneous edema over the pr etibial and medial left lower leg soft tissues. OTHER: No other significant finding. IMPRESSION: No fracture. No soft tissue gas. No radiopaque foreign body. Soft tissue swelling is present TECHNICAL DOCUMENTATION: JOB ID: [id number] [email or web address]- All Rights Reserved Reading location - IP/workstation name: [email or web address]
[2018-08-31] MEDS: BACLOFEN 10 MG TABLET PO SCH ×2 (15:16→19:04)
[2018-08-31] MEDS ORDERED: LANSOPRAZOLE 30 MG TAB.RAP.DR PO SCH (17:00)
[2018-08-31] MEDS ORDERED: MYCOPHENOLATE MOFETIL 1000 MG PO SCH (18:00)
[2018-08-31] MEDS ORDERED: MYCOPHENOLATE MOFETIL 250 MG CAPSULE PO SCH (18:00)
[2018-08-31] MEDS: DOCUSATE SODIUM 100 MG CAPSULE PO SCH (18:52)
[2018-08-31] MEDS: CEFAZOLIN SODIUM 1.5 GM in DEXTROSE 5%-WATER 100 ML IV SCH (18:53)
[2018-08-31] MEDS: MECLIZINE HCL 25 MG TABLET PO SCH (19:04)
[2018-08-31] MEDS: SUCRALFATE 1 GM TABLET PO SCH (19:04)
[2018-08-31] MEDS ORDERED: HYDROMORPHONE HCL 8 MG PO SCH (22:00)
[2018-08-31] MEDS ORDERED: HYDROXYZINE PAMOATE 25 MG CAPSULE PO SCH (22:00)
[2018-08-31] MEDS ORDERED: TRAMADOL HCL 50 MG TABLET PO PRN (22:28)
[2018-08-31] MEDS ORDERED: (PENDING PHARMACY ID) (Suvorexant [Belsomra] 20 MG) PO SCH (22:45)
[2018-09-01] MEDS ORDERED: (PENDING PHARMACY ID) (Tapentadol Hcl [Nucynta] 100 MG) PO SCH
[2018-09-01] MEDS ORDERED: CLONAZEPAM 1 MG TABLET PO ONE (00:15)
[2018-09-01] MEDS ORDERED: ATORVASTATIN CALCIUM 20 MG TABLET PO ONE (00:15)
[2018-09-01] MEDS ORDERED: INSULIN GLARGINE,HUM.REC.ANLOG 300 UNIT/3 ML INSULN.PEN SUBCUT ONE ×2 (00:15→00:38)
[2018-09-01] MEDS ORDERED: HYDROXYZINE PAMOATE 25 MG CAPSULE PO ONE (00:15)
[2018-09-01] MEDS ORDERED: METOPROLOL TARTRATE 25 MG TABLET PO ONE (00:15)
[2018-09-01] MEDS ORDERED: GABAPENTIN 400 MG CAPSULE PO ONE (00:15)
[2018-09-01] MEDS ORDERED: HYDROMORPHONE HCL 2 MG TABLET PO ONE (00:15)
[2018-09-01] MEDS ORDERED: ATORVASTATIN CALCIUM 10 MG TABLET ONE (00:37)
[2018-09-01] MEDS ORDERED: GABAPENTIN 400 MG CAPSULE ONE (00:37)
[2018-09-01] MEDS ORDERED: VENLAFAXINE HCL 75 MG CAP.SR.24H PO ONE (01:00)
[2018-09-01] MEDS: CEFAZOLIN SODIUM 1.5 GM in DEXTROSE 5%-WATER 100 ML IV SCH ×3 (01:36→18:09)
[2018-09-01] MEDS ORDERED: LANSOPRAZOLE 30 MG TAB.RAP.DR PO SCH (06:00)
[2018-09-01 07:49] LABS: ABSOLUTE BASOPHILS # (AUTO) 0.1 10^3/uL (0.0-0.2); ABSOLUTE EOSINOPHILS # (AUTO) 0.2 10^3/uL (0.0-0.6); ABSOLUTE LYMPHOCYTES (AUTO) 3.2 10^3/uL (0.5-4.7); ABSOLUTE MONOCYTES (AUTO) 0.7 10^3/uL (0.1-1.4); ABSOLUTE NEUT (AUTO) 4.6 10^3/uL (1.7-8.2); BASOPHILS % (AUTO) 0.7 % (0-2); EOSINOPHILS % (AUTO) 1.9 % (0-6); HEMATOCRIT 31.4 % (36.0-47.0); HEMOGLOBIN 10.6 g/dL (12.0-15.5); LYMPHOCYTES % (AUTO) 36.8 % (13-45); MEAN CORPUSCULAR HEMOGLOBIN 29.5 pg (27.0-33.4); MEAN CORPUSCULAR HGB CONC 33.6 g/dL (32.0-36.0); MEAN CORPUSCULAR VOLUME 88 fl (80-97); MONOCYTES % (AUTO) 8.1 % (3-13); PLATELET COUNT 262 10^3/uL (150-450); RED BLOOD COUNT 3.57 10^6/uL (3.72-5.28); RED CELL DISTRIBUTION WIDTH 17.3 % (11.5-14.0); SEGMENTED NEUTROPHILS % (AUTO) 52.5 % (42-78); TOTAL CELLS COUNTED % (AUTO) 100 %; WHITE BLOOD COUNT 8.8 10^3/uL (4.0-10.5)
[2018-09-01] MEDS ORDERED: SUCRALFATE 1 GM TABLET PO SCH (08:00)
[2018-09-01 08:07] LABS: ANION GAP 8 (5-19); BLOOD UREA NITROGEN 12 mg/dL (7-20); CALCIUM 8.8 mg/dL (8.4-10.2); CARBON DIOXIDE 29 mmol/L (22-30); CHLORIDE 102 mmol/L (98-107); CHOLESTEROL 144.59 mg/dL (0-200); GLUCOSE 87 mg/dL (75-110); POTASSIUM 4.5 mmol/L (3.6-5.0); SODIUM 138.8 mmol/L (137-145); TRIGLYCERIDES 208 mg/dL (<150)
--- NOTE | 2018-09-01 08:08 | PDOC PROGRESS REPORT ---
Subjective Progress Note for:: 09/01/18 Subjective:: 48-year-old female admitted for left lower leg cellulitis she was started on Ancef no acute events in the last 24 hours. Febrile. cultures Are pending. Reason For Visit: CELLULITIS Physical Exam Vital Signs: Temp Pulse Resp BP Pulse Ox 98.5 F 99 18 106/55 L 87 L 09/01/18 04:29 09/01/18 04:29 09/01/18 04:29 09/01/18 04:29 09/01/18 04:29 Intake & Output 08/31/18 09/01/18 09/02/18 06:59 06:59 06:59 Intake Total 950 Balance 950 Weight 122 kg General appearance: PRESENT: other - Morbidly obese female Head exam: PRESENT: atraumatic Eye exam: PRESENT: PERRLA Neck exam: ABSENT: carotid bruit, JVD, lymphadenopathy, thyromegaly Respiratory exam: PRESENT: clear to auscultation lorelei. ABSENT: rales, rhonchi, wheezes Cardiovascular exam: PRESENT: RRR. ABSENT: diastolic murmur, rubs, systolic murmur GI/Abdominal exam: PRESENT: normal bowel sounds, soft. ABSENT: distended, guarding, mass, organolmegaly, rebound, tenderness Extremities exam: PRESENT: other - Left lower leg erythema swelling is still present Neurological exam: PRESENT: alert, awake, oriented to person, oriented to place, oriented to time, oriented to situation, CN II-XII grossly intact. ABSENT: motor sensory deficit Psychiatric exam: PRESENT: appropriate affect, normal mood. ABSENT: homicidal ideation, suicidal ideation Results Laboratory Results: 09/01/18 06:30 08/31/18 08/31/18 09/01/18 10:38 10:38 06:30 WBC 10.2 8.8 RBC 3.71 L 3.57 L Hgb 11.1 L 10.6 L Hct 32.9 L 31.4 L MCV 89 88 MCH 29.8 29.5 MCHC 33.7 33.6 RDW 17.3 H 17.3 H Plt Count 271 262 Seg Neutrophils % 55.0 52.5 Lymphocytes % 34.3 36.8 Monocytes % 7.4 8.1 Eosinophils % 2.6 1.9 Basophils % 0.7 0.7 Absolute Neutrophils 5.6 4.6 Absolute Lymphocytes 3.5 3.2 Absolute Monocytes 0.8 0.7 Absolute Eosinophils 0.3 0.2 Absolute Basophils 0.1 0.1 Sodium 139.3 Potassium 4.3 Chloride 101 Carbon Dioxide 29 Anion Gap 9 BUN 14 Creatinine 0.65 Est GFR ( Amer) > 60 Est GFR (Non-Af Amer) > 60 Glucose 136 H Calcium 9.1 Total Bilirubin 0.3 AST 19 ALT 39 Alkaline Phosphatase 96 Total Protein 6.8 Albumin 3.7 Impressions: Tibia/Fibula X-Ray 08/31/18 00:00 IMPRESSION: No fracture. No soft tissue gas. No radiopaque foreign body. Soft tissue swelling is present Assessment & Plan - Diagnosis (1) Cellulitis of left leg Is this a current diagnosis for this admission?: Yes Plan: 08/31/2018-the plan is to put the patient in medical floor as an inpatient blood cultures were sent. To start on Ancef 1 g IV every 8 hours as per the ID recommendations. X-ray of the left lower leg and ultrasound was ordered to rule out osteomyelitis and DVT. And is to resume her home medications. She was placed on Dilaudid 1 mg IV every 6 as needed for pain. My opinion patient may need to stay at least 3-4 days in the hospital for IV antibiotic therapy. 09/01/2018-for the left lower leg cellulitis patient is on Ancef 1 g IV every 8 hours on the cultures are pending. X-ray of the left lower leg is negative for osteomyelitis soft tissue swelling is present. Negative for fractures. Venous Doppler was done to rule out DVT and it was pending. (2) Antiphospholipid antibody syndrome Is this a current diagnosis for this admission?: Yes Plan: 08/31/2018 patient is on warfarin for antiphospholipid antibody syndrome INR came back as 5.19. We are going to hold warfarin for now and check INR on daily basis. 09/01/2018 patient is on warfarin for antiphospholipid antibody syndrome INR is 5.4 yesterday and warfarin is on hold today's PT/INR is pending. No complaints of any bruising no complaints of blood in the urine no complaints of blood in the stool. 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 The latest blood sugar is 136. 09/01/2018-A1c is pending patient's latest blood sugar is 115. Patient is on insulin sliding scale. plan is to continue The present management. (4) Morbid obesity with BMI of 40.0-44.9, adult Is this a current diagnosis for this admission?: Yes Plan: 08/31/2018 patient BMI is more than 45 diet exercise lifestyle modification were encouraged. Dietary consult was requested. 09/01/2018-patient's weight is 122 kg. Diet exercise weight loss lifestyle modifications were stressed. (5) Hypertension Is this a current diagnosis for this admission?: Yes Plan: 08/31/2018 patient's blood pressure today is 113/64 plan is to resume home medications. 09/01/2018 patient's blood pressure is 106/55. Patient denies any complaints of dizziness or presyncopal symptoms. Comfortably in the bed. (6) Chronic pain syndrome Is this a current diagnosis for this admission?: Yes Plan: 08/31/2018 patient has chronic pain syndrome plan is to restart her hydromorphone 8 mg p.o. nightly and also started on Dilaudid 1 mg IV every 6 as needed for pain. 09/01/2018 patient is on IV Dilaudid 1 mg every 8 as needed and she is also on hydromorphone 80 mg p.o. nightly plan is to continue the present management. - Time Time Spent with patient: 15-24 minutes Medications reviewed and adjusted accordingly: Yes Anticipated discharge: Home
[2018-09-01] MEDS: SUCRALFATE 1 GM TABLET PO SCH ×5 (08:09→22:06)
[2018-09-01 08:10] LABS: INTERNATIONAL RATION (INR) 3.93; PROTHROMBIN TIME 40.3 SEC (11.4-15.4)
[2018-09-01] MEDS: MYCOPHENOLATE MOFETIL 250 MG CAPSULE PO SCH ×2 (08:11→11:36)
[2018-09-01] MEDS: HYDROMORPHONE HCL 2 MG TABLET PO SCH ×2 (08:12→21:56)
[2018-09-01] MEDS: GABAPENTIN 400 MG CAPSULE PO SCH ×3 (08:13→21:57)
[2018-09-01 08:21] LABS: VLDL CHOLESTEROL 41.6 mg/dL (10-31)
[2018-09-01] MEDS: INSULIN LISPRO 100 UNIT/ML 3 ML VIAL SUBCUT SCH ×3 (08:28→17:52)
[2018-09-01 08:34] LABS: DIRECT LDL 81 mg/dL (<100)
--- NOTE | 2018-09-01 08:42 | RADIOLOGY REPORT (SQ) ---
EXAM DESCRIPTION: VENOUS UNILATERAL LOWER COMPLETED DATE/TIME: 08/31/2018 8:59 pm REASON FOR STUDY: lt leg swelling COMPARISON: None. TECHNIQUE: Dynamic and static steven scale and color images acquired of the left leg venous system. Se lected spectral images acquired with additional compression and augmentation maneuvers. The contralat eral common femoral vein and saphenofemoral junction were also imaged. Images stored on PACS. LIMITATIONS: None. FINDINGS: COMMON FEMORAL: Normal phasicity, compression and augmentation. No visualized echogenic ma terial on steven scale. No defects on color images. FEMORAL: Normal compression and augmentation. No visualized echogenic material on steven scale. No defe cts on color images. POPLITEAL: Normal compression, augmentation. No visualized echogenic material on steven scale. No defec ts on color images. CALF VESSELS: Normal compression, augmentation. No visualized echogenic material on steven scale. No de fects on color images. GSV and SSV: Normal compression, augmentation. No visualized echogenic material on steven scale. No def ects on color images. ANY DEEP VENOUS INSUFFICIENCY: Not evaluated. ANY EVIDENCE OF POPLITEAL CYST: No. OTHER: No other significant finding. CONTRALATERAL COMMON FEMORAL VEIN AND SAPHENOFEMORAL JUNCTION: Normal phasicity, compression and augmentation. No visualized echogenic material on steven scale. No de fects on color images. IMPRESSION: NO EVIDENCE DVT OR SVT IN THE LEFT LEG. TECHNICAL DOCUMENTATION: JOB ID: [id number] [employer]- All Rights Reserved Reading location - IP/workstation name: [email or web address] [email or web address]
[2018-09-01] MEDS ORDERED: LISINOPRIL 10 MG TABLET PO SCH (10:00)
[2018-09-01] MEDS ORDERED: DULOXETINE HCL 30 MG CAPSULE.DR PO SCH (10:00)
[2018-09-01] MEDS ORDERED: (PENDING PHARMACY ID) (Liraglutide [Victoza 2-Pak] 1.8 MG) SQ SCH ×2 (10:00)
[2018-09-01] MEDS ORDERED: LORATADINE 10 MG TABLET PO SCH (10:00)
[2018-09-01] MEDS ORDERED: ARIPIPRAZOLE 2 MG TABLET PO SCH (10:00)
[2018-09-01] MEDS: AMANTADINE HCL 100 MG CAPSULE PO SCH (11:35)
[2018-09-01] MEDS: DOCUSATE SODIUM 100 MG CAPSULE PO SCH ×2 (11:36→17:53)
[2018-09-01] MEDS: MECLIZINE HCL 25 MG TABLET PO SCH (11:36)
[2018-09-01] MEDS: METOPROLOL TARTRATE 25 MG TABLET PO SCH ×2 (11:37→22:01)
[2018-09-01] MEDS: TOPIRAMATE 100 MG TABLET PO SCH ×2 (11:37→21:55)
[2018-09-01] MEDS: CLONAZEPAM 1 MG TABLET PO SCH ×2 (11:37→17:54)
[2018-09-01] MEDS: MULTIVITAMIN TABLET PO SCH (13:10)
[2018-09-01] MEDS: BACLOFEN 10 MG TABLET PO SCH ×2 (13:59→22:00)
[2018-09-01] MEDS: CYANOCOBALAMIN (VITAMIN B-12) 1,000 MCG TABLET PO SCH (13:59)
[2018-09-01] MEDS ORDERED: TAPENTADOL HCL 100 MG PO PRN (16:10)
[2018-09-01] MEDS: NORMAL SALINE 1000 ML 1,000 ML IV PRN (17:55)
[2018-09-01] MEDS ORDERED: TAPENTADOL HCL 100 MG PO SCH (18:00)
[2018-09-01] MEDS: ARIPIPRAZOLE 2 MG TABLET PO SCH (21:59)
[2018-09-01] MEDS: VENLAFAXINE HCL 75 MG CAP.SR.24H PO SCH (21:59)
[2018-09-01] MEDS ORDERED: HYDROXYZINE PAMOATE 50 MG CAPSULE PO SCH (22:00)
[2018-09-01] MEDS: ATORVASTATIN CALCIUM 20 MG TABLET PO SCH (22:00)
[2018-09-01] MEDS: INSULIN GLARGINE,HUM.REC.ANLOG 300 UNIT/3 ML INSULN.PEN SUBCUT SCH (22:03)
[2018-09-01] MEDS: Suvorexant [Belsomra] 20 MG PO SCH (22:03)
[2018-09-02] MEDS: CEFAZOLIN SODIUM 1.5 GM in DEXTROSE 5%-WATER 100 ML IV SCH ×3 (02:02→18:38)
[2018-09-02] MEDS: GABAPENTIN 400 MG CAPSULE PO SCH ×3 (05:30→22:49)
[2018-09-02] MEDS: BACLOFEN 10 MG TABLET PO SCH ×3 (05:31→22:48)
[2018-09-02 06:55] LABS: ABSOLUTE BASOPHILS # (AUTO) 0.1 10^3/uL (0.0-0.2); ABSOLUTE EOSINOPHILS # (AUTO) 0.2 10^3/uL (0.0-0.6); ABSOLUTE LYMPHOCYTES (AUTO) 3.5 10^3/uL (0.5-4.7); ABSOLUTE MONOCYTES (AUTO) 0.9 10^3/uL (0.1-1.4); ABSOLUTE NEUT (AUTO) 5.7 10^3/uL (1.7-8.2); BASOPHILS % (AUTO) 0.7 % (0-2); HEMATOCRIT 32.1 % (36.0-47.0); MEAN CORPUSCULAR HEMOGLOBIN 29.8 pg (27.0-33.4); MEAN CORPUSCULAR HGB CONC 34.3 g/dL (32.0-36.0); MEAN CORPUSCULAR VOLUME 87 fl (80-97); MONOCYTES % (AUTO) 8.3 % (3-13); PLATELET COUNT 262 10^3/uL (150-450); RED BLOOD COUNT 3.69 10^6/uL (3.72-5.28); TOTAL CELLS COUNTED % (AUTO) 100 %; WHITE BLOOD COUNT 10.3 10^3/uL (4.0-10.5)
[2018-09-02 06:58] LABS: INTERNATIONAL RATION (INR) 2.29; PROTHROMBIN TIME 26.3 SEC (11.4-15.4)
[2018-09-02 07:35] LABS: ANION GAP 10 (5-19); BLOOD UREA NITROGEN 14 mg/dL (7-20); CARBON DIOXIDE 27 mmol/L (22-30); CHLORIDE 104 mmol/L (98-107); GLUCOSE 97 mg/dL (75-110); POTASSIUM 4.4 mmol/L (3.6-5.0); SODIUM 140.6 mmol/L (137-145)
[2018-09-02] MEDS ORDERED: LISINOPRIL 5 MG TABLET PO SCH ×2 (08:00→10:00)
--- NOTE | 2018-09-02 08:20 | PDOC PROGRESS REPORT ---
Subjective Progress Note for:: 09/02/18 Subjective:: 48-year-old female admitted for left lower leg cellulitis she was started on Ancef no acute events in the last 24 hours. Febrile. cultures Are pending. 09/02/2018 no acute events in the last 24 hours patient states she is feeling much much better today and she is afebrile. The pain in the left lower leg is much less according to the patient. Reason For Visit: CELLULITIS Physical Exam Vital Signs: Temp Pulse Resp BP Pulse Ox 98.5 F 101 H 18 107/57 L 97 09/02/18 02:36 09/02/18 02:36 09/02/18 02:36 09/02/18 02:36 09/02/18 02:36 Intake & Output 09/01/18 09/02/18 09/03/18 06:59 06:59 06:59 Intake Total 950 2720 Balance 950 2720 Weight 122 kg 122 kg General appearance: PRESENT: no acute distress Head exam: PRESENT: atraumatic Eye exam: PRESENT: PERRLA Mouth exam: PRESENT: moist Neck exam: ABSENT: carotid bruit, JVD, lymphadenopathy, thyromegaly Respiratory exam: PRESENT: clear to auscultation lorelei. ABSENT: rales, rhonchi, wheezes Cardiovascular exam: PRESENT: RRR. ABSENT: diastolic murmur, rubs, systolic murmur GI/Abdominal exam: PRESENT: normal bowel sounds, soft. ABSENT: distended, guarding, mass, organolmegaly, rebound, tenderness Gentrourinary exam: PRESENT: other - The redness and swelling of the left local globin is improved a lot. Neurological exam: PRESENT: alert, awake, oriented to person, oriented to place, oriented to time, oriented to situation, CN II-XII grossly intact. ABSENT: motor sensory deficit Psychiatric exam: PRESENT: appropriate affect, normal mood. ABSENT: homicidal ideation, suicidal ideation Results Laboratory Results: 09/02/18 06:40 09/02/18 06:40 09/01/18 09/01/18 09/02/18 06:30 06:30 06:40 WBC 10.3 RBC 3.69 L Hgb 11.0 L Hct 32.1 L MCV 87 MCH 29.8 MCHC 34.3 RDW 17.0 H Plt Count 262 Seg Neutrophils % 55.0 Lymphocytes % 34.0 Monocytes % 8.3 Eosinophils % 2.0 Basophils % 0.7 Absolute Neutrophils 5.7 Absolute Lymphocytes 3.5 Absolute Monocytes 0.9 Absolute Eosinophils 0.2 Absolute Basophils 0.1 Sodium 138.8 Potassium 4.5 Chloride 102 Carbon Dioxide 29 Anion Gap 8 BUN 12 Creatinine 0.75 Est GFR ( Amer) > 60 Est GFR (Non-Af Amer) > 60 Glucose 87 Calcium 8.8 Magnesium 1.9 Triglycerides 208 H Cholesterol 144.59 LDL Cholesterol Direct 81 VLDL Cholesterol 41.6 H HDL Cholesterol 53 TSH 3.13 09/02/18 06:40 WBC RBC Hgb Hct MCV MCH MCHC RDW Plt Count Seg Neutrophils % Lymphocytes % Monocytes % Eosinophils % Basophils % Absolute Neutrophils Absolute Lymphocytes Absolute Monocytes Absolute Eosinophils Absolute Basophils Sodium 140.6 Potassium 4.4 Chloride 104 Carbon Dioxide 27 Anion Gap 10 BUN 14 Creatinine 0.78 Est GFR ( Amer) > 60 Est GFR (Non-Af Amer) > 60 Glucose 97 Calcium 9.0 Magnesium 2.1 Triglycerides Cholesterol LDL Cholesterol Direct VLDL Cholesterol HDL Cholesterol TSH Impressions: Tibia/Fibula X-Ray 08/31/18 00:00 IMPRESSION: No fracture. No soft tissue gas. No radiopaque foreign body. Soft tissue swelling is present Venous Doppler Study 08/31/18 00:00 IMPRESSION: NO EVIDENCE DVT OR SVT IN THE LEFT LEG. Assessment & Plan - Diagnosis (1) Cellulitis of left leg Is this a current diagnosis for this admission?: Yes Plan: 08/31/2018-the plan is to put the patient in medical floor as an inpatient blood cultures were sent. To start on Ancef 1 g IV every 8 hours as per the ID recommendations. X-ray of the left lower leg and ultrasound was ordered to rule out osteomyelitis and DVT. And is to resume her home medications. She was placed on Dilaudid 1 mg IV every 6 as needed for pain. My opinion patient may need to stay at least 3-4 days in the hospital for IV antibiotic therapy. 09/01/2018-for the left lower leg cellulitis patient is on Ancef 1 g IV every 8 hours on the cultures are pending. X-ray of the left lower leg is negative for osteomyelitis soft tissue swelling is present. Negative for fractures. Venous Doppler was done to rule out DVT and it was pending. 09/02/2018-patient is on Ancef 1 g IV every 8 hours. And x-rays negative for osteomyelitis are negative for DVT. Patient shows significant improvement in the symptoms. Plan is to continue 1 more day of IV antibiotics. Cultures are negative so far. (2) Antiphospholipid antibody syndrome Is this a current diagnosis for this admission?: Yes Plan: 08/31/2018 patient is on warfarin for antiphospholipid antibody syndrome INR came back as 5.19. We are going to hold warfarin for now and check INR on daily basis. 09/01/2018 patient is on warfarin for antiphospholipid antibody syndrome INR is 5.4 yesterday and warfarin is on hold today's PT/INR is pending. No complaints of any bruising no complaints of blood in the urine no complaints of blood in the stool. 09/02/2018-INR came back today 2.29. Coumadin is on hold because she came in with high INR more than 5. Plan is to restart her on home dose Coumadin 5 mg p.o. nightly. I am going to check PT/INR tomorrow. 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 The latest blood sugar is 136. 09/01/2018-A1c is pending patient's latest blood sugar is 115. Patient is on insulin sliding scale. plan is to continue The present management. 09/02/2018-hemoglobin A1c came back as 6.5. Since latest blood sugar is 97. pt is oninsulin Sliding scale. And is to continue the present management. (4) Morbid obesity with BMI of 40.0-44.9, adult Is this a current diagnosis for this admission?: Yes Plan: 08/31/2018 patient BMI is more than 45 diet exercise lifestyle modification were encouraged. Dietary consult was requested. 09/01/2018-patient's weight is 122 kg. Diet exercise weight loss lifestyle modifications were stressed. 09/02/2018-patient's BMI is more than 45. Dietary consult was done. Again diet ,exercise, weight loss was strongly recommended. (5) Hypertension Is this a current diagnosis for this admission?: Yes Plan: 08/31/2018 patient's blood pressure today is 113/64 plan is to resume home me dications. 09/01/2018 patient's blood pressure is 106/55. Patient denies any complaints of dizziness or presyncopal symptoms. Comfortably in the bed. 09/02/2018 patient's blood pressure today is 107/65. Asymptomatic. Patient is on lisinopril 5 mg p.o. daily and metoprolol 12.5 mg p.o. twice daily plan is to continue the present management. (6) Chronic pain syndrome Is this a current diagnosis for this admission?: Yes Plan: 08/31/2018 patient has chronic pain syndrome plan is to restart her hydromorphone 8 mg p.o. nightly and also started on Dilaudid 1 mg IV every 6 as needed for pain. 09/01/2018 patient is on IV Dilaudid 1 mg every 8 as needed and she is also on hydromorphone 8 mg po qhspatient denies any complaints of pain today plan is to continue the present management. 09/02/2018-patient denies any pain today. Plan is to continue the present management. - Time Time Spent with patient: 15-24 minutes Medications reviewed and adjusted accordingly: Yes Anticipated discharge: Home
[2018-09-02] MEDS: INSULIN LISPRO 100 UNIT/ML 3 ML VIAL SUBCUT SCH ×3 (10:00→18:23)
[2018-09-02] MEDS: CLONAZEPAM 1 MG TABLET PO SCH ×2 (10:15→18:22)
[2018-09-02] MEDS: DOCUSATE SODIUM 100 MG CAPSULE PO SCH ×2 (10:16→18:22)
[2018-09-02] MEDS: METOPROLOL TARTRATE 25 MG TABLET PO SCH ×2 (10:17→22:50)
[2018-09-02] MEDS: TOPIRAMATE 100 MG TABLET PO SCH ×2 (10:19→22:48)
[2018-09-02] MEDS: AMANTADINE HCL 100 MG CAPSULE PO SCH (10:20)
[2018-09-02] MEDS: CYANOCOBALAMIN (VITAMIN B-12) 1,000 MCG TABLET PO SCH (12:27)
[2018-09-02] MEDS: SUCRALFATE 1 GM TABLET PO SCH ×3 (12:27→22:50)
[2018-09-02] MEDS: MULTIVITAMIN TABLET PO SCH (12:27)
[2018-09-02] MEDS: NORMAL SALINE 1000 ML 1,000 ML IV PRN (16:32)
[2018-09-02] MEDS ORDERED: WARFARIN SODIUM 5 MG TABLET PO SCH (22:00)
[2018-09-02] MEDS: HYDROMORPHONE HCL 2 MG TABLET PO SCH (22:47)
[2018-09-02] MEDS: ARIPIPRAZOLE 2 MG TABLET PO SCH (22:50)
[2018-09-02] MEDS: ATORVASTATIN CALCIUM 20 MG TABLET PO SCH (22:51)
[2018-09-02] MEDS: VENLAFAXINE HCL 75 MG CAP.SR.24H PO SCH (22:51)
[2018-09-02] MEDS: INSULIN GLARGINE,HUM.REC.ANLOG 300 UNIT/3 ML INSULN.PEN SUBCUT SCH (23:05)
[2018-09-03] MEDS: Suvorexant [Belsomra] 20 MG PO SCH (00:11)
[2018-09-03] MEDS: CEFAZOLIN SODIUM 1.5 GM in DEXTROSE 5%-WATER 100 ML IV SCH (02:50)
[2018-09-03] MEDS: BACLOFEN 10 MG TABLET PO SCH (05:30)
[2018-09-03] MEDS: GABAPENTIN 400 MG CAPSULE PO SCH (05:30)
[2018-09-03 06:37] LABS: ABSOLUTE BASOPHILS # (AUTO) 0.1 10^3/uL (0.0-0.2); ABSOLUTE EOSINOPHILS # (AUTO) 0.2 10^3/uL (0.0-0.6); ABSOLUTE LYMPHOCYTES (AUTO) 3.2 10^3/uL (0.5-4.7); ABSOLUTE MONOCYTES (AUTO) 0.7 10^3/uL (0.1-1.4); ABSOLUTE NEUT (AUTO) 4.8 10^3/uL (1.7-8.2); BASOPHILS % (AUTO) 0.8 % (0-2); EOSINOPHILS % (AUTO) 2.2 % (0-6); HEMATOCRIT 31.9 % (36.0-47.0); HEMOGLOBIN 10.7 g/dL (12.0-15.5); LYMPHOCYTES % (AUTO) 35.7 % (13-45); MEAN CORPUSCULAR HEMOGLOBIN 29.4 pg (27.0-33.4); MEAN CORPUSCULAR HGB CONC 33.5 g/dL (32.0-36.0); MEAN CORPUSCULAR VOLUME 88 fl (80-97); MONOCYTES % (AUTO) 7.5 % (3-13); PLATELET COUNT 257 10^3/uL (150-450); RED BLOOD COUNT 3.64 10^6/uL (3.72-5.28); RED CELL DISTRIBUTION WIDTH 17.2 % (11.5-14.0); SEGMENTED NEUTROPHILS % (AUTO) 53.8 % (42-78); TOTAL CELLS COUNTED % (AUTO) 100 %; WHITE BLOOD COUNT 8.9 10^3/uL (4.0-10.5)
[2018-09-03 06:44] LABS: INTERNATIONAL RATION (INR) 1.47; PROTHROMBIN TIME 18.6 SEC (11.4-15.4)
[2018-09-03 06:55] LABS: ANION GAP 10 (5-19); BLOOD UREA NITROGEN 13 mg/dL (7-20); CARBON DIOXIDE 24 mmol/L (22-30); CHLORIDE 105 mmol/L (98-107); GLUCOSE 100 mg/dL (75-110); POTASSIUM 4.4 mmol/L (3.6-5.0); SODIUM 139.1 mmol/L (137-145)
[2018-09-03 08:29] VITALS: BP 115/78
[2018-09-03] MEDS: INSULIN LISPRO 100 UNIT/ML 3 ML VIAL SUBCUT SCH (09:04)
[2018-09-03] MEDS: AMANTADINE HCL 100 MG CAPSULE PO SCH (09:05)
--- NOTE | 2018-09-03 14:24 | PDOC DISCHARGE SUMMARY ---
General - Admit/Disc Date/PCP Admission Date/Primary Care Provider: 08/31/18 13:02 JARON LYON MD Discharge Date: 09/03/18 - Discharge Diagnosis (1) Cellulitis of left leg Is this a current diagnosis for this admission?: Yes Summary: 48-year-old female admitted for left lower leg swelling erythema she was started on Ancef the cultures come back negative. And redness and swelling is improved. She is going home on clindamycin 300 mg p.o. twice daily for 1 week. To follow-up with primary care physician in 5-7 days. (2) Antiphospholipid antibody syndrome Is this a current diagnosis for this admission?: Yes Summary: 09/03/2018-patient has history of antiphospholipid antibody syndrome on and Coumadin 5 mg p.o. nightly at the time of admission INR is more than 5 so warfarin is on hold it was restarted yesterday. Patient was advised to continue Coumadin 5 mg p.o. nightly at home and advised her to follow-up with primary care physician for the follow-up lab work. (3) Diabetes mellitus type II, controlled Is this a current diagnosis for this admission?: Yes Summary: 09/03/2018-patient has history of diabetes mellitus and hemoglobin A1c 6.4 blood sugars are relatively stable during the hospital stay. Advised her to resume her home medications. (4) Morbid obesity with BMI of 40.0-44.9, adult Is this a current diagnosis for this admission?: Yes Summary: 09/03/2018-diet and exercise weight loss was advised. (5) Hypertension Is this a current diagnosis for this admission?: Yes Summary: Patient's blood pressures are stable during the hospital course today blood pressure is 102/57. Patient was advised to resume her home medications. (6) Chronic pain syndrome Is this a current diagnosis for this admission?: Yes Summary: 09/03/2018-patient was on hydromorphone as an outpatient for chronic pain to the home medications when she is discharged. - Additional Information Resuscitation Status: Full Code Discharge Diet: Diabetic Discharge Activity: Activity As Tolerated Prescriptions: Clindamycin HCl [Cleocin 300 mg Capsule] 300 mg PO TID #21 capsule Home Medications: Amantadine HCl [Symmetrel 100 mg Capsule] 100 mg PO QAM 08/31/18 Aripiprazole [Abilify 2 mg Tablet] 2 mg PO DAILY 08/31/18 Atorvastatin Calcium [Lipitor 20 mg Tablet] 20 mg PO QHS 08/31/18 Baclofen [Baclofen 10 mg Tablet] 10 mg PO Q8 08/31/18 Clonazepam [Klonopin] 0.5 mg PO BID 08/31/18 Cyanocobalamin (Vitamin B-12) [Vitamin B-12 1000 mcg Tablet] 1,000 mcg PO NOON 08/31/18 Dexlansoprazole [Dexilant 60 mg Capsule] 60 mg PO QAM 08/31/18 Gabapentin [Neurontin] 1,200 mg PO Q8 08/31/18 Insulin Aspart [Novolog Flexpen] 8 units SQ MEALS 08/31/18 Insulin Glargine,Hum.rec.anlog [Lantus Insulin 100 Unit/mL] 34 units SQ QHS 08/31/18 Liraglutide [Victoza 2-Adrien] 1.8 mg SQ DAILY 08/31/18 Lisinopril [Zestril] 5 mg PO QAM 08/31/18 Metoprolol Tartrate [Lopressor 25 mg Tablet] 12.5 mg PO Q12 08/31/18 Mv-Mn/Folic Acid/Calcium/Vit K [Women's 50 Plus Multivit Tab] 1 each PO NOON 08/31/18 Sucralfate [Carafate 1 gm Tablet] 1 gm PO ACHS 08/31/18 Suvorexant [Belsomra] 20 mg PO QHS 08/31/18 Tapentadol HCl [Nucynta] 100 mg PO Q6 08/31/18 Tramadol HCl [Ultram 50 mg Tablet] 50 mg PO Q8HP PRN 08/31/18 Venlafaxine HCl [Venlafaxine HCl ER] 150 mg PO QHS 08/31/18 Albuterol Sulfate [Ventolin 0.042% Neb 1.25 mg/3 mL Ampul] 1.25 mg NEB RTQ4HP PRN vial.neb 09/03/18 Clindamycin HCl [Cleocin 300 mg Capsule] 300 mg PO TID #21 capsule 09/03/18 Warfarin Sodium [Coumadin 5 mg Tablet] 5 mg PO QHS tablet 09/03/18 History of Present Illness History of Present Illness: MIGUEL JONES is a 48 year old female with history of morbid obesity, SLE, antiphospholipid antibody, multiple sclerosis, diabetes, hypertension, anxiety, depression, fibromyalgia, degenerative disc disease came to the emergency room today with complaints of worsening left lower leg swelling redness and pain for the last 2 weeks. She was here in the emergency room on of this month was given Bactrim and apparently the medication did not help her at all and came to the emergency room again today with worsening of the symptoms. She is given the history of low-grade fever. Pain scale according to her is 10 x 10. These things started after a fall injured her left lower leg. Chills and Reiger's. Headaches dizziness. Is given the history of previous right lower leg cellulitis with strep infection. She is also given the history of chronic pain and goes to the pain clinic. Emergency room blood cultures was done patient was started on IV Rocephin medical consult was called for admission. According to the patient previous admission was done ultrasound was done to rule out DVT. Lately those tests came back normal. Physical Exam Vital Signs: Temp Pulse Resp BP Pulse Ox 98.2 F 99 18 115/78 96 09/03/18 08:00 09/03/18 08:00 09/03/18 08:00 09/03/18 08:00 09/03/18 08:00 Intake & Output 09/02/18 09/03/18 09/04/18 06:59 06:59 06:59 Intake Total 2720 1300 Balance 2720 1300 Weight 122 kg 126.4 kg General appearance: PRESENT: no acute distress Head exam: PRESENT: atraumatic Eye exam: PRESENT: PERRLA Neck exam: ABSENT: carotid bruit, JVD, lymphadenopathy, thyromegaly Respiratory exam: PRESENT: clear to auscultation lorelei. ABSENT: rales, rhonchi, wheezes Cardiovascular exam: PRESENT: RRR. ABSENT: diastolic murmur, rubs, systolic murmur GI/Abdominal exam: PRESENT: normal bowel sounds, soft. ABSENT: distended, guarding, mass, organolmegaly, rebound, tenderness Neurological exam: PRESENT: alert, awake, oriented to person, oriented to place, oriented to time, oriented to situation, CN II-XII grossly intact. ABSENT: motor sensory deficit Psychiatric exam: PRESENT: appropriate affect, normal mood. ABSENT: homicidal ideation, suicidal ideation Results Laboratory Results: 09/03/18 06:13 12/29/18 06:13 09/03/18 09/03/18 06:13 06:13 WBC 8.9 RBC 3.64 L Hgb 10.7 L Hct 31.9 L MCV 88 MCH 29.4 MCHC 33.5 RDW 17.2 H Plt Count 257 Seg Neutrophils % 53.8 Lymphocytes % 35.7 Monocytes % 7.5 Eosinophils % 2.2 Basophils % 0.8 Absolute Neutrophils 4.8 Absolute Lymphocytes 3.2 Absolute Monocytes 0.7 Absolute Eosinophils 0.2 Absolute Basophils 0.1 Sodium 139.1 Potassium 4.4 Chloride 105 Carbon Dioxide 24 Anion Gap 10 BUN 13 Creatinine 0.66 Est GFR ( Amer) > 60 Est GFR (Non-Af Amer) > 60 Glucose 100 Calcium 9.0 Magnesium 2.0 Impressions: Tibia/Fibula X-Ray 08/31/18 00:00 IMPRESSION: No fracture. No soft tissue gas. No radiopaque foreign body. Soft tissue swelling is present Venous Doppler Study 08/31/18 00:00 IMPRESSION: NO EVIDENCE DVT OR SVT IN THE LEFT LEG. Qualifiers - * PATIENT BEING DISCHARGED WITH ANY OF THE FOLLOWING DIAGNOSIS: No VTE patient discharged on overlapping Therapy?: Yes
== END 2018-09-03 01:15 | disposition home or self-care (01) | DRG 603 ==
LOC: ER 09:35 → EH 13:02 → 2N 15:50
PROVIDERS: ADMIT Hospitalist; ATTEND Hospitalist
DX: L03.115 Cellulitis of right lower limb (principal); D68.61 Antiphospholipid syndrome; Z68.41 Body mass index [BMI] 40.0-44.9, adult; E11.9 Type 2 diabetes mellitus without complications; E66.01 Morbid (severe) obesity due to excess calories; I10 Essential (primary) hypertension; G89.4 Chronic pain syndrome; M32.9 Systemic lupus erythematosus, unspecified; G35 Multiple sclerosis; F41.9 Anxiety disorder, unspecified; F32.9 Major depressive disorder, single episode, unspecified; M79.7 Fibromyalgia; E78.00 Pure hypercholesterolemia, unspecified; K21.9 Gastro-esophageal reflux disease without esophagitis; M19.90 Unspecified osteoarthritis, unspecified site; D64.9 Anemia, unspecified; Z79.01 Long term (current) use of anticoagulants; Z79.4 Long term (current) use of insulin; Z79.899 Other long term (current) drug therapy; Z90.49 Acquired absence of other specified parts of digestive tract; Z88.0 Allergy status to penicillin; Z88.8 Allergy status to other drugs, medicaments and biological substances; Z88.3 Allergy status to other anti-infective agents; Z91.030 Bee allergy status; Z91.040 Latex allergy status; Z86.73 Personal history of transient ischemic attack (TIA), and cerebral infarction without residual deficits
CPT/HCPCS: 36415; 80048; 80053; 80061; 82962; 83036; 83735; 84443; 85025; 85610; 87040; 93971; 99285; J0690; J0696; J1170; J1815; J3490; J7030

== ENCOUNTER 2019-02-06 21:31 | Emergency (ER) | payer MEDICARE, OTHER ==
--- NOTE | 2019-02-06 22:31 | RADIOLOGY REPORT (SQ) ---
EXAM DESCRIPTION: XR PELVIS 1-2 VIEWS COMPLETED DATE/TME: 02/06/2019 00:00 CLINICAL HISTORY: 48 years, Female, fall COMPARISON: Prior study from 12/06/2017 NUMBER OF VIEWS: One TECHNIQUE: Single frontal view of the pelvis was obtained. LIMITATIONS: None. FINDINGS: Visualized osseous structures are normal in appearance. Joint spaces are well-maintained. No acute fracture or dislocation is evident. IMPRESSION: No acute osseous anomaly. copyright 2010 [employer]- All Rights Reserved
--- NOTE | 2019-02-06 22:32 | RADIOLOGY REPORT (SQ) ---
EXAM DESCRIPTION: Right knee RadLex: XR KNEE 4 OR MORE VIEWS Views: 4 CLINICAL HISTORY: 48 years Female, fall COMPARISON: None FINDINGS: Negative for acute fracture, dislocation, or radiopaque foreign body. No joint effusion. No lytic changes or periosteal reaction. IMPRESSION: 1. No acute findings.
--- NOTE | 2019-02-07 01:04 | ER Document Report ---
ED Medical Screen (RME) - General Chief Complaint: Fall Stated Complaint: KNEE PAIN Time Seen by Provider: 02/07/19 01:02 Primary Care Provider: JARON LYON MD [Primary Care Provider] - Follow up as needed Mode of Arrival: Wheelchair Information source: Patient Notes: 48-year-old female presents to ED for complaint of pain to her right knee and pelvic area. She states her knees on Wednesday and that is been getting progressively worse and has not been able to walk on it now. She states that Wednesday evening about 6 PM she fell on her buttocks twisting her knee and now she is not able to walk at all. She has a extensive history with any phospholipid antibody syndrome lupus multiple sclerosis osteoarthritis seizures and diabetes amongst other things. She is on Coumadin and has been for 6 years. She is on chronic pain management and taking Nucynta by [facility]. She states that she comes in here and usually gets narcotics for the pain. Patient is alert oriented respirations regular and unlabored she does have bruising to the right knee. X-rays were ordered previously by the nurse both the right knee and the pelvic x-rays are negative. I have greeted and performed a rapid initial assessment of this patient. A comprehensive ED assessment and evaluation of the patient, analysis of test results and completion of medical decision making process will be conducted by an additional ED providers. Dictation of this chart was performed using voice recognition software; therefore, there may be some unintended grammatical errors. TRAVEL OUTSIDE OF THE [place] IN LAST 30 DAYS: No - Related Data Allergies/Adverse Reactions: adhesive [Adhesive] Allergy (Severe, Verified 08/31/18 10:15) Blisters latex [Latex] Allergy (Severe, Verified 08/31/18 10:15) Hives polyethylene glycol 3350 [From Miralax] Allergy (Severe, Verified 08/31/18 10:15) na and v rash povidone-iodine [From Betadine] Allergy (Severe, Verified 08/31/18 10:15) Blisters Soap [From Betadine] Allergy (Severe, Verified 08/31/18 10:15) Blisters Penicillins Allergy (Mild, Verified 08/31/18 10:15) Hives ciprofloxacin Allergy (Verified 08/31/18 10:15) levofloxacin [From Levaquin] Allergy (Verified 08/31/18 10:15) bee sting Allergy (Severe, Uncoded 08/31/18 10:15) Anaphylaxis hurricane spray Allergy (Severe, Uncoded 08/31/18 10:15) Shortness of Breath Past Medical History - Past Medical History Cardiac Medical History: Reports: Hx Hypercholesterolemia, Hx Hypertension Denies: Hx Coronary Artery Disease, Hx Heart Attack Pulmonary Medical History: Reports: Hx Pneumonia - hx of in past Denies: Hx Asthma, Hx Bronchitis, Hx COPD Neurological Medical History: Reports: Hx Cerebrovascular Accident - 2014, Hx Migraine, Hx Seizures - x1, poss seizure/stroke second time Endocrine Medical History: Reports: Hx Diabetes Mellitus Type 2 Renal/ Medical History: Denies: Hx Peritoneal Dialysis GI Medical History: Reports: Hx Gastroesophageal Reflux Disease Musculoskeltal Medical History: Reports Hx Arthritis - osteoarthritis, Reports Hx Fibromyalgia, Reports Hx Multiple Sclerosis Psychiatric Medical History: Reports: Hx Depression Past Surgical History: Reports: Hx Appendectomy, Hx Section - 2, Hx Cholecystectomy, Hx Gynecologic Surgery. Denies: Hx Hysterectomy - Immunizations Immunizations up to date: Yes Hx Diphtheria, Pertussis, Tetanus Vaccination: Yes History of Influenza Vaccine for 06/2017 - 11/2017 Season: No Physical Exam - Vital signs Vitals: Temp Pulse Resp BP Pulse Ox 99.4 F 110 H 20 138/92 H 99 02/06/19 22:51 02/06/19 22:51 02/06/19 22:51 02/06/19 22:51 02/06/19 22:51 Course - Vital Signs Vital signs: Temp Pulse Resp BP Pulse Ox 99.4 F 110 H 20 138/92 H 99 02/06/19 22:51 02/06/19 22:51 02/06/19 22:51 02/06/19 22:51 02/06/19 22:51 Doctor's Discharge - Discharge Referrals: JARON LYON MD [Primary Care Provider] - Follow up as needed
[2019-02-07] MEDS ORDERED: HYDROMORPHONE HCL INJ/PF 2 MG/ML AMPULE IM ONE (05:13)
--- NOTE | 2019-02-07 05:23 | ER Document Report ---
HPI - HPI Time Seen by Provider: 02/07/19 01:02 Pain Level: 5 Context: Patient is a 48-year-old female that comes to the emergency department for chief complaint of right knee pain and tailbone pain. She states that her knee pain is the worst, she states that she got her sandal stuck on a chair, fell forward, landed on the knee on the ground. She also states that she slipped in the tub and landed on her tailbone. She denies hitting her head. She slipped yesterd ay, fell today. She denies dizziness, denies focal numbness or weakness. She reports a history of lupus, medicated. She also has a history of antiphospholipid syndrome and is on Coumadin. She states she self checks her Coumadin levels now and that they have been normal. - REPRODUCTIVE Reproductive: DENIES: : Past Medical History - General Information source: Patient - Social History Smoking Status: Never Smoker Frequency of alcohol use: None Drug Abuse: None Lives with: Family Family History: Reviewed & Not Pertinent - Past Medical History Cardiac Medical History: Reports: Hx Hypercholesterolemia, Hx Hypertension Denies: Hx Coronary Artery Disease, Hx Heart Attack Pulmonary Medical History: Reports: Hx Pneumonia - hx of in past Denies: Hx Asthma, Hx Bronchitis, Hx COPD Neurological Medical History: Reports: Hx Cerebrovascular Accident - 2014, Hx Migraine, Hx Seizures - x1, poss seizure/stroke second time Endocrine Medical History: Reports: Hx Diabetes Mellitus Type 2 Renal/ Medical History: Denies: Hx Peritoneal Dialysis GI Medical History: Reports: Hx Gastroesophageal Reflux Disease Musculoskeletal Medical History: Reports Hx Arthritis - osteoarthritis, Reports Hx Fibromyalgia, Reports Hx Multiple Sclerosis Psychiatric Medical History: Reports: Hx Depression Past Surgical History: Reports: Hx Appendectomy, Hx Section - 2, Hx Cholecystectomy, Hx Gynecologic Surgery. Denies: Hx Hysterectomy - Immunizations Immunizations up to date: Yes Hx Diphtheria, Pertussis, Tetanus Vaccination: Yes Vertical Provider Document - CONSTITUTIONAL General Appearance: WD/WN, No Apparent Distress - INFECTION CONTROL TRAVEL OUTSIDE OF THE [place] IN LAST 30 DAYS: No - HEENT HEENT: Atraumatic, Normal ENT Exam, Normocephalic - NECK Neck: Normal Inspection - RESPIRATORY Respiratory: Breath Sounds Normal, No Respiratory Distress - CARDIOVASCULAR Cardiovascular: Regular Rate, Regular Rhythm - GI/ABDOMEN Gastrointestinal: Abdomen Soft, Abdomen Non-Tender - BACK Back: negative: Normal Inspection - Non-tender back generally on palpation. No midline tenderness, no saddle anesthesia, no signs of trauma. Normal upper and lower extremity range of motion, normal strength, normal distal neurovascular exam. - MUSCULOSKELETAL/EXTREMETIES Musculoskeletal/Extremeties: Tender - Pain with palpation over the inferior right anterior knee with mild soft tissue swelling in this area. Range of motion the knee is intact, normal hip, ankle, distal foot exam. Normal capillary refill and sensation. - NEURO Level of Consciousness: Awake, Alert, Appropriate Motor/Sensory: No Motor Deficit, No Sensory Deficit - DERM Integumentary: Warm, Dry, No Rash Course - Re-evaluation Re-evalutation: Patient has tenderness over the anterior inferior aspect of the right knee without severe soft tissue swelling. Patient can bend her knee. The lumbar does not appear to have injury, no tenderness noted on palpation, the x-ray does not show any obvious fracture or concerning finding. Patient has no neurovascular deficits. No fractures on x-rays of the knee. Appears to be soft tissue injury only. Discussed with patient. Patient states the past 2 times that she had a fall similar to this with some mild developing redness she ended up developing cellulitis. She does have diabetes. She does have some mild redness of the area. This is not hot or notably tender. Patient request to be covered for prophylaxis for potential cellulitis. I did agree to this after discussion. Patient was placed in knee immobilizer, discussed expectations, follow-up, return precautions. Patient states understanding and agreement. - Vital Signs Vital signs: Temp Pulse Resp BP Pulse Ox 99.4 F 110 H 20 138/92 H 99 02/06/19 22:51 02/06/19 22:51 02/06/19 22:51 02/06/19 22:51 02/06/19 22:51 Procedures - Immobilization Right knee Pre-Proc Neuro Vasc Exam: Normal Immobilizer type: Ankle stirrup Performed by: RN Post-Proc Neuro Vasc Exam: Normal Alignment checked and good: Yes Discharge - Discharge Clinical Impression: Coccygeal pain Fall Qualifiers: Encounter type: initial encounter Qualified Code(s): W19.XXXA - Unspecified fall, initial encounter Right knee pain Qualifiers: Chronicity: acute Qualified Code(s): M25.561 - Pain in right knee Condition: Stable Disposition: HOME, SELF-CARE Additional Instructions: The x-rays do not show fractures. This appears to be soft tissue injury only, I recommend icing (3-4 times a day for 10-15 minutes), elevating, using the crutches and knee immobilizer. Symptoms should gradually resolve over the next several days. Follow-up with your primary care. We have placed you on Keflex prophylaxis because of your history of cellulitis. Take as prescribed. Return for any concerning symptoms including severe swelling or pain. Prescriptions: Cephalexin Monohydrate [Keflex 500 mg Capsule] 500 mg PO QID #20 capsule Referrals: JARON LYON MD [Primary Care Provider] - Follow up as needed
[2019-02-07 06:06] VITALS: BP 144/87
== END 2019-02-07 05:59 | disposition home or self-care (01) ==
LOC: ER 21:31
DX: M25.561 Pain in right knee (principal); W18.39XA Other fall on same level, initial encounter; M53.3 Sacrococcygeal disorders, not elsewhere classified; W18.2XXA Fall in (into) shower or empty bathtub, initial encounter; L53.9 Erythematous condition, unspecified; I10 Essential (primary) hypertension; E11.9 Type 2 diabetes mellitus without complications; D68.61 Antiphospholipid syndrome; Z79.01 Long term (current) use of anticoagulants; Z79.899 Other long term (current) drug therapy
CPT/HCPCS: 99283; 96372; 73564; 72170; L1830; J1170

== ENCOUNTER 2019-02-13 15:31 | Inpatient (IN) | payer MEDICARE, OTHER ==
[2019-02-13] MEDS ORDERED: CEPHALEXIN 500 MG CAPSULE PO ONE (17:21)
[2019-02-13] MEDS ORDERED: KETOROLAC TROMETHAMINE 60 MG/2 ML SDV IM ONE (17:21)
--- NOTE | 2019-02-13 17:24 | ER Document Report ---
ED Medical Screen (RME) - General Chief Complaint: Skin Problem Stated Complaint: LEG SWELLING/PAIN Time Seen by Provider: 02/13/19 17:15 Primary Care Provider: JARON LYON MD [Primary Care Provider] - Follow up as needed TRAVEL OUTSIDE OF THE [place] IN LAST 30 DAYS: No - HPI Notes: 02/13/19 17:22 Patient is a 48-year-old female with a history of type 2 diabetes, hypertension, previous cellulitis to the right lower extremity who presents complaining of increased redness and pain to the anterior lower leg over the past week. Patient was seen and was given Keflex for 5 days, but states that when the antibiotic finished the symptoms began worsening again. Patient states that this is similar to previous cellulitis infection. She is still eating and drinking without difficulty. She is urinating normally and having normal bowel moods. No history of DVT or PE. Denies PECK, fever, neck pain, URI, CP, SOB, Abd pain, dysuria, back pain. I have treated and performed a rapid initial assessment of this patient. A comprehensive ED assessment and evaluation of the patient, analysis of test results and completion of medical decision making process will be conducted by additional ED providers. PHYSICAL EXAMINATION: GENERAL: Well-appearing, well-nourished and in no acute distress. A&Ox4. Answers questions appropriately. LUNGS: Breath sounds clear to auscultation bilaterally and equal. No wheezes rales or rhonchi. HEART: Regular rate and rhythm without murmurs, rubs, gallops. RLE: + erythema, warmth, and tenderness anterior lower leg. No calf tenderness . Cap refill <3 seconds. Pulses 1+ b/l. Ext's b/l: + 2+ pitting edema. - Related Data Allergies/Adverse Reactions: adhesive [Adhesive] Allergy (Severe, Verified 02/13/19 17:21) Blisters latex [Latex] Allergy (Severe, Verified 02/13/19 17:21) Hives polyethylene glycol 3350 [From Miralax] Allergy (Severe, Verified 02/13/19 17:21) na and v rash povidone-iodine [From Betadine] Allergy (Severe, Verified 02/13/19 17:21) Blisters Soap [From Betadine] Allergy (Severe, Verified 02/13/19 17:21) Blisters Penicillins Allergy (Mild, Verified 02/13/19 17:21) Hives ciprofloxacin Allergy (Verified 02/13/19 17:21) levofloxacin [From Levaquin] Allergy (Verified 02/13/19 17:21) bee sting Allergy (Severe, Uncoded 02/13/19 17:21) Anaphylaxis hurricane spray Allergy (Severe, Uncoded 02/13/19 17:21) Shortness of Breath Past Medical History - Social History Chew tobacco use (# tins/day): No Frequency of alcohol use: None Drug Abuse: None - Past Medical History Cardiac Medical History: Reports: Hx Hypercholesterolemia, Hx Hypertension Denies: Hx Coronary Artery Disease, Hx Heart Attack Pulmonary Medical History: Reports: Hx Pneumonia - hx of in past Denies: Hx Asthma, Hx Bronchitis, Hx COPD Neurological Medical History: Reports: Hx Cerebrovascular Accident - 2013, Hx Migraine, Hx Seizures - x1, poss seizure/stroke second time Endocrine Medical History: Reports: Hx Diabetes Mellitus Type 2 Renal/ Medical History: Denies: Hx Peritoneal Dialysis GI Medical History: Reports: Hx Gastroesophageal Reflux Disease Musculoskeltal Medical History: Reports Hx Arthritis - osteoarthritis, Reports Hx Fibromyalgia, Reports Hx Multiple Sclerosis Psychiatric Medical History: Reports: Hx Depression Past Surgical History: Reports: Hx Appendectomy, Hx Section - 2, Hx Cholecystectomy, Hx Gynecologic Surgery. Denies: Hx Hysterectomy - Immunizations Immunizations up to date: Yes Hx Diphtheria, Pertussis, Tetanus Vaccination: Yes History of Influenza Vaccine for 06/2017 - 11/2017 Season: No Physical Exam - Vital signs Vitals: Temp Pulse Resp BP Pulse Ox 98.4 F 103 H 18 137/79 H 96 02/13/19 15:45 02/13/19 15:45 02/13/19 15:45 02/13/19 15:45 02/13/19 15:45 Course - Vital Signs Vital signs: Temp Pulse Resp BP Pulse Ox 98.4 F 103 H 18 137/79 H 96 02/13/19 15:45 02/13/19 15:45 02/13/19 15:45 02/13/19 15:45 02/13/19 15:45 Doctor's Discharge - Discharge Referrals: JARON LYON MD [Primary Care Provider] - Follow up as needed
[2019-02-13 19:00] LABS: ABSOLUTE BASOPHILS # (AUTO) 0.1 10^3/uL (0.0-0.2); ABSOLUTE EOSINOPHILS # (AUTO) 0.3 10^3/uL (0.0-0.6); ABSOLUTE LYMPHOCYTES (AUTO) 2.7 10^3/uL (0.5-4.7); ABSOLUTE NEUT (AUTO) 9.6 10^3/uL (1.7-8.2); BASOPHILS % (AUTO) 0.6 % (0-2); EOSINOPHILS % (AUTO) 2.1 % (0-6); HEMATOCRIT 34.9 % (36.0-47.0); HEMOGLOBIN 11.6 g/dL (12.0-15.5); LYMPHOCYTES % (AUTO) 19.6 % (13-45); MEAN CORPUSCULAR HEMOGLOBIN 29.1 pg (27.0-33.4); MEAN CORPUSCULAR HGB CONC 33.3 g/dL (32.0-36.0); MEAN CORPUSCULAR VOLUME 87 fl (80-97); MONOCYTES % (AUTO) 7.2 % (3-13); PLATELET COUNT 305 10^3/uL (150-450); RED CELL DISTRIBUTION WIDTH 15.6 % (11.5-14.0); SEGMENTED NEUTROPHILS % (AUTO) 70.5 % (42-78); TOTAL CELLS COUNTED % (AUTO) 100 %; WHITE BLOOD COUNT 13.7 10^3/uL (4.0-10.5)
[2019-02-13 19:07] LABS: ANION GAP 13 (5-19); BLOOD UREA NITROGEN 12 mg/dL (7-20); CALCIUM 9.5 mg/dL (8.4-10.2); CARBON DIOXIDE 30 mmol/L (22-30); CHLORIDE 95 mmol/L (98-107); GLUCOSE 172 mg/dL (75-110); POTASSIUM 4.5 mmol/L (3.6-5.0); SODIUM 137.8 mmol/L (137-145)
[2019-02-13] MEDS ORDERED: KETOROLAC TROMETHAMINE INJ/PF 30 MG/1 ML SDV IV ONE (23:21)
[2019-02-13] MEDS ORDERED: MORPHINE SULFATE 10 MG/ML INJ IV PRN (23:21)
[2019-02-14 00:08] LABS: VENOUS BLOOD BASE EXCESS 4.4 mmol/L; VENOUS BLOOD HCO3 31.2 mmol/L (20-32); VENOUS BLOOD PCO2 55.8 mmHg (35-63); VENOUS BLOOD PH 7.37 (7.30-7.42)
[2019-02-14] MEDS ORDERED: VANCOMYCIN HCL INJ 1000 MG VIAL IV ONE (00:11)
[2019-02-14] MEDS ORDERED: CEFTRIAXONE INJ 1000 MG VIAL IV ONE (00:11)
[2019-02-14] MEDS ORDERED: RINGERS SOLUTION,LACTATED 1,000 ML IV ONE (00:12)
[2019-02-14 00:17] LABS: INTERNATIONAL RATION (INR) 3.36; PROTHROMBIN TIME 35.6 SEC (11.4-15.4)
[2019-02-14] MEDS ORDERED: MAG HYDROX/AL HYDROX/SIMETH SUSP 30 ML UDCUP PO PRN (00:17)
[2019-02-14] MEDS ORDERED: MAGNESIUM HYDROXIDE SUSP 30 ML UDCUP PO PRN (00:17)
[2019-02-14] MEDS ORDERED: IPRATROPIUM/ALBUTEROL 0.5-2.5 MG/3 ML AMPUL NEB PRN (00:17)
--- NOTE | 2019-02-14 00:19 | ER Document Report ---
ED General - General Chief Complaint: Skin Problem Stated Complaint: LEG SWELLING/PAIN Time Seen by Provider: 02/13/19 17:15 Primary Care Provider: JARON LYON MD [Primary Care Provider] - Follow up as needed Notes: Patient is a 48-year-old female with a history of type 2 diabetes, hypertension, lupus, antiphospholipid syndrome, previous cellulitis to the right lower extremity who presents complaining of increased redness and pain to the anterior lower leg over the past week. Patient was seen and was given Keflex for 5 days, but states that when the antibiotic finished the symptoms began worsening again. Patient states that this is similar to previous cellulitis infection that is required hospitalization. She describes pain to the extremity as being a severe, burning, constant pain. Touching the area worsens the pain. Nothing improves the pain. Has has not had fever but does state that she feels generally unwell. Has not yet followed up with her primary care doctor regarding today's concerns. TRAVEL OUTSIDE OF THE [place] IN LAST 30 DAYS: No - Related Data Allergies/Adverse Reactions: adhesive [Adhesive] Allergy (Severe, Verified 02/13/19 17:21) Blisters latex [Latex] Allergy (Severe, Verified 02/13/19 17:21) Hives polyethylene glycol 3350 [From Miralax] Allergy (Severe, Verified 02/13/19 17:21) na and v rash povidone-iodine [From Betadine] Allergy (Severe, Verified 02/13/19 17:21) Blisters Soap [From Betadine] Allergy (Severe, Verified 02/13/19 17:21) Blisters Penicillins Allergy (Mild, Verified 02/13/19 17:21) Hives ciprofloxacin Allergy (Verified 02/13/19 17:21) levofloxacin [From Levaquin] Allergy (Verified 02/13/19 17:21) bee sting Allergy (Severe, Uncoded 02/13/19 17:21) Anaphylaxis hurricane spray Allergy (Severe, Uncoded 02/13/19 17:21) Shortness of Breath Past Medical History - General Information source: Patient - Social History Smoking Status: Never Smoker Chew tobacco use (# tins/day): No Frequency of alcohol use: None Drug Abuse: None Lives with: Spouse/Significant other Family History: Reviewed & Not Pertinent Patient has suicidal ideation: No Patient has homicidal ideation: No - Past Medical History Cardiac Medical History: Reports: Hx Hypercholesterolemia, Hx Hypertension Denies: Hx Coronary Artery Disease, Hx Heart Attack Pulmonary Medical History: Reports: Hx Pneumonia - hx of in past Denies: Hx Asthma, Hx Bronchitis, Hx COPD Neurological Medical History: Reports: Hx Cerebrovascular Accident - 2014, Hx Migraine, Hx Seizures - x1, poss seizure/stroke second time Endocrine Medical History: Reports: Hx Diabetes Mellitus Type 2 Renal/ Medical History: Denies: Hx Peritoneal Dialysis GI Medical History: Reports: Hx Gastroesophageal Reflux Disease Musculoskeletal Medical History: Reports Hx Arthritis - osteoarthritis, Reports Hx Fibromyalgia, Reports Hx Multiple Sclerosis Psychiatric Medical History: Reports: Hx Depression Past Surgical History: Reports: Hx Appendectomy, Hx Section - 2, Hx Cholecystectomy, Hx Gynecologic Surgery. Denies: Hx Hysterectomy - Immunizations Immunizations up to date: Yes Hx Diphtheria, Pertussis, Tetanus Vaccination: Yes Review of Systems - Review of Systems Notes: Constitutional: Negative for fever. HENT: Negative for sore throat. Eyes: Negative for visual changes. Cardiovascular: Negative for chest pain. Respiratory: Negative for shortness of breath. Gastrointestinal: Negative for abdominal pain, vomiting or diarrhea. Genitourinary: Negative for dysuria. Musculoskeletal: Negative for back pain. Skin: Positive for rash. Neurological: Negative for headaches, weakness or numbness. 10 point ROS negative except as marked above and in HPI. Physical Exam - Vital signs Vitals: Temp Pulse Resp BP Pulse Ox 98.4 F 103 H 18 137/79 H 96 02/13/19 15:45 02/13/19 15:45 02/13/19 15:45 02/13/19 15:45 02/13/19 15:45 Notes: PHYSICAL EXAMINATION: GENERAL: Appears uncomfortable and in pain but no distress HEAD: Atraumatic, normocephalic. EYES: Pupils equal round and reactive to light, extraocular movements intact, sclera anicteric, conjunctiva are normal. ENT: nares patent, oropharynx clear without exudates. Moist mucous membranes. NECK: Normal range of motion, supple without lymphadenopathy LUNGS: Breath sounds clear to auscultation bilaterally and equal. No wheezes rales or rhonchi. HEART: Regular tachycardia without murmurs ABDOMEN: Soft, nontender, normoactive bowel sounds. No guarding, no rebound. No masses appreciated. EXTREMITIES: Normal range of motion, no pitting or edema. No cyanosis. NEUROLOGICAL: No focal neurological deficits. Moves all extremities spontaneously and on command. PSYCH: Normal mood, normal affect. SKIN: Warm, Dry, normal turgor, diffuse erythematous changes nonraised over the entirety of the distal right lower extremely below the level of the knee but above the level of the ankle. Exquisitely tender to palpation. No induration or areas of fluctuance. Course - Re-evaluation Re-evalutation: 02/14/19 00:19 Patient presents with cellulitis that has been treated as an outpatient with failure. The patient is likewise immune suppressed and is a diabetic placing her at higher risk for decompensation as an outpatient. There is no evidence of associated fluid collection no drainable area at the time of my evaluation. Labs reveal leukocytosis, patient does meet sepsis criteria given that she was tachycardic and had a leukocytosis at time of presentation. She has had cultures drawn, lactate drawn. IV fluids as well as ceftriaxone and vancomycin are being administered. I have discussed with the hospitalist Dr. Cyr who has accepted the patient for admission. - Vital Signs Vital signs: Temp Pulse Resp BP Pulse Ox 98.4 F 112 H 20 133/84 H 96 02/13/19 23:15 02/13/19 23:07 02/13/19 23:07 02/13/19 23:15 02/13/19 23:07 - Laboratory Result Diagrams: 02/13/19 18:10 02/13/19 18:10 Laboratory results interpreted by me: 02/13/19 02/13/19 18:10 18:10 WBC 13.7 H Hgb 11.6 L Hct 34.9 L RDW 15.6 H Absolute Neutrophils 9.6 H Chloride 95 L Glucose 172 H Discharge - Discharge Clinical Impression: Morbid obesity with BMI of 40.0-44.9, adult, Cellulitis of right lower ex tremity Sepsis Qualifiers: Sepsis type: sepsis due to unspecified organism Qualified Code(s): A41.9 - Sepsis, unspecified organism Condition: Fair Disposition: ADMITTED INPATIENT Admitting Provider: Ger (Hospitalist) Unit Admitted: Medical Floor Referrals: JARON LYON MD [Primary Care Provider] - Follow up as needed
[2019-02-14] MEDS ORDERED: VANCOMYCIN HCL 0 MG in DEXTROSE 5%-WATER 250 ML IV NR (00:30)
[2019-02-14] MEDS ORDERED: NORMAL SALINE 1000 ML 1,000 ML IV PRN (00:30)
--- NOTE | 2019-02-14 01:25 | RADIOLOGY REPORT (SQ) ---
CLINICAL HISTORY: r/o abscess COMPARISON: None. TECHNIQUE: US EXTREMITY MUSCULOSKELETAL on 02/14/2019 12:00 AM CDT FINDINGS: Multiple images of the right knee and right ankle and areas of pain shows no focal fluid collection. There is extensive subcutaneous soft tissue thickening. IMPRESSION: No abscess.
[2019-02-14 02:32] LABS: ABSOLUTE BASOPHILS # (AUTO) 0.1 10^3/uL (0.0-0.2); ABSOLUTE EOSINOPHILS # (AUTO) 0.3 10^3/uL (0.0-0.6); ABSOLUTE LYMPHOCYTES (AUTO) 3.4 10^3/uL (0.5-4.7); ABSOLUTE MONOCYTES (AUTO) 0.9 10^3/uL (0.1-1.4); ABSOLUTE NEUT (AUTO) 7.5 10^3/uL (1.7-8.2); BASOPHILS % (AUTO) 0.5 % (0-2); EOSINOPHILS % (AUTO) 2.3 % (0-6); HEMATOCRIT 34.2 % (36.0-47.0); HEMOGLOBIN 11.3 g/dL (12.0-15.5); LYMPHOCYTES % (AUTO) 27.9 % (13-45); MEAN CORPUSCULAR HEMOGLOBIN 28.7 pg (27.0-33.4); MEAN CORPUSCULAR HGB CONC 32.9 g/dL (32.0-36.0); MEAN CORPUSCULAR VOLUME 87 fl (80-97); MONOCYTES % (AUTO) 7.6 % (3-13); PLATELET COUNT 309 10^3/uL (150-450); RED BLOOD COUNT 3.92 10^6/uL (3.72-5.28); RED CELL DISTRIBUTION WIDTH 15.6 % (11.5-14.0); SEGMENTED NEUTROPHILS % (AUTO) 61.7 % (42-78); TOTAL CELLS COUNTED % (AUTO) 100 %; WHITE BLOOD COUNT 12.1 10^3/uL (4.0-10.5)
--- NOTE | 2019-02-14 02:47 | PDOC CONSULTATION ---
Consultation Consult Date: 02/14/19 Attending physician:: OLI PINTO Provider Consulted: MELANIE EASLEY Consult reason:: Cellulitis RIGHT lower extremity History of Present Illness Admission Date/PCP: 02/14/19 01:06 JARON LYON MD Patient complains of: Right lower extremity swelling History of Present Illness: MIGUEL JONES is a 48 year old female Presents to the emergency department via ground rescue complaining 1 week history of right lower quadrant pain, swelling, erythema, decreased range of motion. Patient's symptoms are similar to previous episodes of right leg cellulitis over the last 2 years, one episode requiring I&D. Patient was evaluated emergency department found to have right leg cellulitis, early sepsis, and surgery was consulted. Right lower extremity ultrasound revealed thickened subcutaneous tissue. She denies history of trauma. Past Medical History Cardiac Medical History: Reports: Hyperlipidema, Hypertension Denies: Coronary Artery Disease, Myocardial Infarction Pulmonary Medical History: Reports: Pneumonia - hx of in past Denies: Asthma, Bronchitis, Chronic Obstructive Pulmonary Disease (COPD) Neurological Medical History: Reports: Migraine, Seizures - x1, poss seizure/stroke second time Endocrine Medical History: Reports: Diabetes Mellitus Type 2 GI Medical History: Reports: Gastroesophageal Reflux Disease Musculoskeltal Medical History: Reports: Arthritis - osteoarthritis, Fibromyalgia Psychiatric Medical History: Reports: Depression Hematology: Reports: Anemia Past Surgical History Past Surgical History: Reports: Appendectomy, Section - 2, Cholecystectomy Denies: Hysterectomy Social History Lives with: Spouse/Significant other Smoking Status: Never Smoker Frequency of Alcohol Use: None Hx Recreational Drug Use: No Hx Prescription Drug Abuse: Yes - only for pain-nucynta Family History Family History: Reviewed & Not Pertinent Parental Family History Reviewed: Yes Children Family History Reviewed: Yes Sibling(s) Family History Reviewed.: Yes Medication/Allergy Home Medications: Amantadine HCl [Symmetrel 100 mg Capsule] 100 mg PO QAM 08/31/18 Aripiprazole [Abilify 2 mg Tablet] 2 mg PO DAILY 08/31/18 Atorvastatin Calcium [Lipitor 20 mg Tablet] 20 mg PO QHS 08/31/18 Baclofen [Baclofen 10 mg Tablet] 10 mg PO Q8 08/31/18 Clonazepam [Klonopin] 0.5 mg PO BID 08/31/18 Cyanocobalamin (Vitamin B-12) [Vitamin B-12 1000 mcg Tablet] 1,000 mcg PO NOON 08/31/18 Dexlansoprazole [Dexilant 60 mg Capsule] 60 mg PO QAM 08/31/18 Gabapentin [Neurontin] 1,200 mg PO Q8 08/31/18 Insulin Aspart [Novolog Flexpen] 8 units SQ MEALS 08/31/18 Insulin Glargine,Hum.rec.anlog [Lantus Insulin 100 Unit/mL Insulin Pen] 34 units SQ QHS 08/31/18 Liraglutide [Victoza 2-Adrien] 1.8 mg SQ DAILY 08/31/18 Lisinopril [Zestril] 5 mg PO QAM 08/31/18 Metoprolol Tartrate [Lopressor 25 mg Tablet] 12.5 mg PO Q12 08/31/18 Mv-Mn/Folic Acid/Calcium/Vit K [Women's 50 Plus Multivit Tab] 1 each PO NOON 08/31/18 Sucralfate [Carafate 1 gm Tablet] 1 gm PO ACHS 08/31/18 Suvorexant [Belsomra] 20 mg PO QHS 08/31/18 Tapentadol HCl [Nucynta] 100 mg PO Q6 08/31/18 Tramadol HCl [Ultram 50 mg Tablet] 50 mg PO Q8HP PRN 08/31/18 Venlafaxine HCl [Venlafaxine HCl ER] 150 mg PO QHS 08/31/18 Albuterol Sulfate [Ventolin 0.042% Neb 1.25 mg/3 mL Ampul] 1.25 mg NEB RTQ4HP PRN vial.neb 09/03/18 Clindamycin HCl [Cleocin 300 mg Capsule] 300 mg PO TID #21 capsule 09/03/18 Warfarin Sodium [Coumadin 5 mg Tablet] 5 mg PO QHS tablet 09/03/18 Cephalexin Monohydrate [Keflex 500 mg Capsule] 500 mg PO QID #20 capsule 02/07/19 Allergies/Adverse Reactions: adhesive [Adhesive] Allergy (Severe, Verified 02/13/19 17:21) Blisters latex [Latex] Allergy (Severe, Verified 02/13/19 17:21) Hives polyethylene glycol 3350 [From Miralax] Allergy (Severe, Verified 02/13/19 17:21) na and v rash povidone-iodine [From Betadine] Allergy (Severe, Verified 02/13/19 17:21) Blisters Soap [From Betadine] Allergy (Severe, Verified 02/13/19 17:21) Blisters Penicillins Allergy (Mild, Verified 02/13/19 17:21) Hives ciprofloxacin Allergy (Verified 02/13/19 17:21) levofloxacin [From Levaquin] Allergy (Verified 02/13/19 17:21) bee sting Allergy (Severe, Uncoded 02/13/19 17:21) Anaphylaxis hurricane spray Allergy (Severe, Uncoded 02/13/19 17:21) Shortness of Breath Review of Systems Constitutional: PRESENT: as per HPI Eyes: ABSENT: visual disturbances Ears: ABSENT: hearing changes Respiratory: ABSENT: cough, hemoptysis Gastrointestinal: PRESENT: as per HPI Neurological: PRESENT: other - MS, Physical Exam Vital Signs: Temp Pulse Resp BP Pulse Ox 98.4 F 112 H 20 133/84 H 96 02/13/19 23:15 02/13/19 23:07 02/13/19 23:07 02/13/19 23:15 02/13/19 23:07 Intake & Output 02/12/19 02/13/19 02/14/19 06:59 06:59 06:59 Weight 155.5 kg General appearance: PRESENT: no acute distress Head exam: PRESENT: normocephalic Eye exam: PRESENT: EOMI Mouth exam: PRESENT: dry mucosa Neck exam: PRESENT: full ROM Respiratory exam: PRESENT: clear to auscultation lorelei Cardiovascular exam: PRESENT: RRR Pulses: PRESENT: normal carotid pulses, normal radial pulses, normal dorsalis pedis pul GI/Abdominal exam: PRESENT: soft Rectal exam: PRESENT: deferred Extremities exam: PRESENT: other - Marked right lower extremity cellulitis between the knee and the ankle, with circumferential edema, and erythema. No focal area of fluctuance. Scars consistent with previous surgery. Psychiatric exam: PRESENT: appropriate affect Results Laboratory Results: 02/13/19 02/13/19 02/13/19 18:10 18:10 23:48 WBC 13.7 H RBC 4.00 Hgb 11.6 L Hct 34.9 L MCV 87 MCH 29.1 MCHC 33.3 RDW 15.6 H Plt Count 305 Seg Neutrophils % 70.5 Lymphocytes % 19.6 Monocytes % 7.2 Eosinophils % 2.1 Basophils % 0.6 Absolute Neutrophils 9.6 H Absolute Lymphocytes 2.7 Absolute Monocytes 1.0 Absolute Eosinophils 0.3 Absolute Basophils 0.1 VBG pH VBG pCO2 VBG HCO3 VBG Base Excess Sodium 137.8 Potassium 4.5 Chloride 95 L Carbon Dioxide 30 Anion Gap 13 BUN 12 Creatinine 0.68 Est GFR ( Amer) > 60 Est GFR (Non-Af Amer) > 60 Glucose 172 H Lactic Acid 1.6 Calcium 9.5 02/13/19 23:48 WBC RBC Hgb Hct MCV MCH MCHC RDW Plt Count Seg Neutrophils % Lymphocytes % Monocytes % Eosinophils % Basophils % Absolute Neutrophils Absolute Lymphocytes Absolute Monocytes Absolute Eosinophils Absolute Basophils VBG pH 7.37 VBG pCO2 55.8 VBG HCO3 31.2 VBG Base Excess 4.4 Sodium Potassium Chloride Carbon Dioxide Anion Gap BUN Creatinine Est GFR ( Amer) Est GFR (Non-Af Amer) Glucose Lactic Acid Calcium Impressions: Extremity Ultrasound 02/14/19 00:00 IMPRESSION: No abscess. Assessment & Plan - Diagnosis (1) Cellulitis of right lower extremity Is this a current diagnosis for this admission?: Yes Plan: Impression: Current right lower extremity cellulitis, likely multifactorial; with early sepsis; bedside ultrasound reveals no focal fluid collection. Recommendations: 1. I repeated bedside ultrasonography; there is edema but no fluid collection warranting drainage 2. Recommend IV fluids, and leg elevation which was initiated this morning. 3. Please reconsult surgery if no significant clinical improvement in 24 to 36 hours. 4. Discussed the above with Dr. Oli Pinto, hospitalist. (2) Morbid obesity with BMI of 40.0-44.9, adult Is this a current diagnosis for this admission?: Yes (3) Sepsis Qualifiers: Sepsis type: sepsis due to unspecified organism Qualified Code(s): A41.9 - Sepsis, unspecified organism Is this a current diagnosis for this admission?: Yes (4) Anticoagulated on Coumadin Is this a current diagnosis for this admission?: Yes (5) Hypertension Is this a current diagnosis for this admission?: Yes
--- NOTE | 2019-02-14 02:50 | Operative Report ---
Operative Report DATE OF SURGERY: 02/14/19 PREOPERATIVE DIAGNOSIS: 1. Morbid obesity. 2. Severe cellulitis of right low er extremity POSTOPERATIVE DIAGNOSIS: Same: No evidence of focal, drainable fluid collection OPERATION: Focus of the right lower extremity SURGEON: MELANIE EASLEY ANESTHESIA: Other - None TISSUE REMOVED OR ALTERED: None COMPLICATIONS: None ESTIMATED BLOOD LOSS: None INTRAOPERATIVE FINDINGS: See below PROCEDURE: At bedside, the right lower extremity was exposed, and skin with a variable frequency linear introducer. Acuson gel was placed in the right lower extremity. Multiple images were obtained. The findings were significant for subcutaneous edema most prominent over the pretibial region. There was no discrete fluid greater saphenous vein was patent and compressible. Impression: No focal loculated fluid collection in the right lower extremity between the knee and the ankle.
[2019-02-14 03:01] LABS: ANION GAP 11 (5-19); BLOOD UREA NITROGEN 13 mg/dL (7-20); CALCIUM 9.5 mg/dL (8.4-10.2); CARBON DIOXIDE 33 mmol/L (22-30); CHLORIDE 94 mmol/L (98-107); GLUCOSE 172 mg/dL (75-110); POTASSIUM 4.1 mmol/L (3.6-5.0); SODIUM 137.9 mmol/L (137-145)
--- NOTE | 2019-02-14 03:50 | PDOC H&P ---
History of Present Illness Admission Date/PCP: 02/14/19 01:06 JARON LYON MD Patient complains of: Right leg pain and swelling History of Present Illness: MIGUEL JONES is a 48 year old female with a complex past medical history of morbid obesity, lupus with antiphospholipid syndrome, multiple sclerosis, chronic pain, medication induced immunosuppression and diabetes. She presents with 9 days of right lower leg erythema and pain prompting her to seek evalu ation in the emergency room 7 days ago she completed a course of Keflex without significant improvement. She is found to have +2 edema to the right lower leg, tachycardia, leukocytosis and pain she is ordered vancomycin, cefepime and referred to the hospitalist for admission. She admits previous history of multiple episodes of lower extremity cellulitis denying MRSA admitting 1 culture positive strep. Past Medical History Cardiac Medical History: Reports: Hyperlipidema, Hypertension Denies: Coronary Artery Disease, Myocardial Infarction Pulmonary Medical History: Reports: Pneumonia - hx of in past Denies: Asthma, Bronchitis, Chronic Obstructive Pulmonary Disease (COPD) Neurological Medical History: Reports: Migraine, Seizures - x1, poss seizure/stroke second time Endocrine Medical History: Reports: Diabetes Mellitus Type 2 GI Medical History: Reports: Gastroesophageal Reflux Disease Musculoskeltal Medical History: Reports: Arthritis - osteoarthritis, Fibromyalgia Psychiatric Medical History: Reports: Depression Hematology: Reports: Anemia Past Surgical History Past Surgical History: Reports: Appendectomy, Section - 2, Cholecystectomy Denies: Hysterectomy Social History Information Source: Patient Lives with: Spouse/Significant other Smoking Status: Never Smoker Frequency of Alcohol Use: None Hx Recreational Drug Use: No Hx Prescription Drug Abuse: Yes - only for pain-nucynta - Advance Directive Resuscitation Status: Full Code Family History Family History: Hypertension Parental Family History Reviewed: Yes Children Family History Reviewed: Yes Sibling(s) Family History Reviewed.: Yes Medication/Allergy Home Medications: Amantadine HCl [Symmetrel 100 mg Capsule] 100 mg PO QAM 08/31/18 Aripiprazole [Abilify 2 mg Tablet] 2 mg PO DAILY 08/31/18 Atorvastatin Calcium [Lipitor 20 mg Tablet] 20 mg PO QHS 08/31/18 Baclofen [Baclofen 10 mg Tablet] 10 mg PO Q8 08/31/18 Clonazepam [Klonopin] 0.5 mg PO BID 08/31/18 Cyanocobalamin (Vitamin B-12) [Vitamin B-12 1000 mcg Tablet] 1,000 mcg PO NOON 08/31/18 Dexlansoprazole [Dexilant 60 mg Capsule] 60 mg PO QAM 08/31/18 Gabapentin [Neurontin] 1,200 mg PO Q8 08/31/18 Insulin Aspart [Novolog Flexpen] 8 units SQ MEALS 08/31/18 Insulin Glargine,Hum.rec.anlog [Lantus Insulin 100 Unit/mL Insulin Pen] 34 units SQ QHS 08/31/18 Liraglutide [Victoza 2-Adrien] 1.8 mg SQ DAILY 08/31/18 Lisinopril [Zestril] 5 mg PO QAM 08/31/18 Metoprolol Tartrate [Lopressor 25 mg Tablet] 12.5 mg PO Q12 08/31/18 Mv-Mn/Folic Acid/Calcium/Vit K [Women's 50 Plus Multivit Tab] 1 each PO NOON 08/31/18 Sucralfate [Carafate 1 gm Tablet] 1 gm PO ACHS 08/31/18 Suvorexant [Belsomra] 20 mg PO QHS 08/31/18 Tapentadol HCl [Nucynta] 100 mg PO Q6 08/31/18 Tramadol HCl [Ultram 50 mg Tablet] 50 mg PO Q8HP PRN 08/31/18 Venlafaxine HCl [Venlafaxine HCl ER] 150 mg PO QHS 08/31/18 Albuterol Sulfate [Ventolin 0.042% Neb 1.25 mg/3 mL Ampul] 1.25 mg NEB RTQ4HP PRN vial.neb 09/03/18 Clindamycin HCl [Cleocin 300 mg Capsule] 300 mg PO TID #21 capsule 09/03/18 Warfarin Sodium [Coumadin 5 mg Tablet] 5 mg PO QHS tablet 09/03/18 Cephalexin Monohydrate [Keflex 500 mg Capsule] 500 mg PO QID #20 capsule 02/07/19 Allergies/Adverse Reactions: adhesive [Adhesive] Allergy (Severe, Verified 02/13/19 17:21) Blisters latex [Latex] Allergy (Severe, Verified 02/13/19 17:21) Hives polyethylene glycol 3350 [From Miralax] Allergy (Severe, Verified 02/13/19 17:21) na and v rash povidone-iodine [From Betadine] Allergy (Severe, Verified 02/13/19 17:21) Blisters Soap [From Betadine] Allergy (Severe, Verified 02/13/19 17:21) Blisters Penicillins Allergy (Mild, Verified 02/13/19 17:21) Hives ciprofloxacin Allergy (Verified 02/13/19 17:21) levofloxacin [From Levaquin] Allergy (Verified 02/13/19 17:21) bee sting Allergy (Severe, Uncoded 02/13/19 17:21) Anaphylaxis hurricane spray Allergy (Severe, Uncoded 02/13/19 17:21) Shortness of Breath Review of Systems Constitutional: ABSENT: chills, fever(s), headache(s), weight gain, weight loss Eyes: ABSENT: visual disturbances Ears: ABSENT: hearing changes Cardiovascular: ABSENT: chest pain, dyspnea on exertion, edema, orthropnea, palpitations Respiratory: ABSENT: cough, hemoptysis Gastrointestinal: ABSENT: abdominal pain, constipation, diarrhea, hematemesis, hematochezia, nausea, vomiting Genitourinary: ABSENT: dysuria, hematuria Musculoskeletal: ABSENT: joint swelling Integumentary: ABSENT: rash, wounds Neurological: ABSENT: abnormal gait, abnormal speech, confusion, dizziness, focal weakness, syncope Psychiatric: ABSENT: anxiety, depression, homidical ideation, suicidal ideation Endocrine: ABSENT: cold intolerance, heat intolerance, polydipsia, polyuria Hematologic/Lymphatic: ABSENT: easy bleeding, easy bruising Physical Exam Vital Signs: Temp Pulse Resp BP Pulse Ox 98.5 F 106 H 20 145/85 H 98 02/14/19 02:48 02/14/19 02:48 02/14/19 02:48 02/14/19 02:48 02/14/19 02:48 Intake & Output 02/12/19 02/13/19 02/14/19 11:59 11:59 11:59 Weight 155.5 kg General appearance: PRESENT: cooperative, mild distress, morbidly obese, well- developed, well-nourished Head exam: PRESENT: atraumatic, normocephalic Eye exam: PRESENT: conjunctiva pink, EOMI, PERRLA. ABSENT: scleral icterus Ear exam: PRESENT: normal external ear exam Mouth exam: PRESENT: moist, tongue midline Neck exam: ABSENT: carotid bruit, JVD, lymphadenopathy, thyromegaly Respiratory exam: PRESENT: clear to auscultation lorelei. ABSENT: rales, rhonchi, wheezes Cardiovascular exam: PRESENT: RRR. ABSENT: diastolic murmur, rubs, systolic murmur Pulses: PRESENT: normal dorsalis pedis pul Vascular exam: PRESENT: normal capillary refill GI/Abdominal exam: PRESENT: normal bowel sounds, soft. ABSENT: distended, guarding, mass, organolmegaly, rebound, tenderness Rectal exam: PRESENT: deferred Extremities exam: PRESENT: full ROM. ABSENT: calf tenderness, clubbing, pedal edema Neurological exam: PRESENT: alert, awake, oriented to person, oriented to place, oriented to time, oriented to situation, CN II-XII grossly intact. ABSENT: motor sensory deficit Psychiatric exam: PRESENT: appropriate affect, normal mood. ABSENT: homicidal ideation, suicidal ideation Skin exam: PRESENT: dry, intact, warm, other - Right leg with circumferential erythema +2 edema and tenderness without open ulcer or fluctuance. ABSENT: cya nosis, rash Adult Front & Back Image: 1 - Right leg with circumferential erythema +2 edema and tenderness without open ulcer or fluctuance Results Laboratory Results: 02/14/19 02:18 02/14/19 02:18 02/13/19 02/13/19 02/13/19 18:10 18:10 23:48 WBC 13.7 H RBC 4.00 Hgb 11.6 L Hct 34.9 L MCV 87 MCH 29.1 MCHC 33.3 RDW 15.6 H Plt Count 305 Seg Neutrophils % 70.5 Lymphocytes % 19.6 Monocytes % 7.2 Eosinophils % 2.1 Basophils % 0.6 Absolute Neutrophils 9.6 H Absolute Lymphocytes 2.7 Absolute Monocytes 1.0 Absolute Eosinophils 0.3 Absolute Basophils 0.1 VBG pH VBG pCO2 VBG HCO3 VBG Base Excess Sodium 137.8 Potassium 4.5 Chloride 95 L Carbon Dioxide 30 Anion Gap 13 BUN 12 Creatinine 0.68 Est GFR ( Amer) > 60 Est GFR (Non-Af Amer) > 60 Glucose 172 H Lactic Acid 1.6 Calcium 9.5 02/13/19 02/14/19 02/14/19 23:48 02:18 02:18 WBC 12.1 H RBC 3.92 Hgb 11.3 L Hct 34.2 L MCV 87 MCH 28.7 MCHC 32.9 RDW 15.6 H Plt Count 309 Seg Neutrophils % 61.7 Lymphocytes % 27.9 Monocytes % 7.6 Eosinophils % 2.3 Basophils % 0.5 Absolute Neutrophils 7.5 Absolute Lymphocytes 3.4 Absolute Monocytes 0.9 Absolute Eosinophils 0.3 Absolute Basophils 0.1 VBG pH 7.37 VBG pCO2 55.8 VBG HCO3 31.2 VBG Base Excess 4.4 Sodium 137.9 Potassium 4.1 Chloride 94 L Carbon Dioxide 33 H Anion Gap 11 BUN 13 Creatinine 0.82 Est GFR ( Amer) > 60 Est GFR (Non-Af Amer) > 60 Glucose 172 H Lactic Acid Calcium 9.5 Impressions: Extremity Ultrasound 02/14/19 00:00 IMPRESSION: No abscess. Assessment and Plan - Diagnosis (1) Cellulitis of right lower extremity Is this a current diagnosis for this admission?: Yes Plan: Medical floor admission for cellulitis, elevation, empiric antibiotics, follow- up ultrasound, CBC and surgical consult (2) Morbid obesity with BMI of 40.0-44.9, adult Is this a current diagnosis for this admission?: Yes Plan: Morbid obesity will evaluate for metabolic cause with evaluation of thyroid function and dietitian consultation (3) Sepsis Qualifiers: Sepsis type: sepsis due to unspecified organism Qualified Code(s): A41.9 - Sepsis, unspecified organism Is this a current diagnosis for this admission?: Yes Plan: Secondary to #1, empiric antibiotics, follow-up blood culture and lactic acid (4) Anticoagulated on Coumadin Is this a current diagnosis for this admission?: Yes Plan: Patient is on Coumadin 7.5 mg 4 days a week alternating with 5 mg. Currently supratherapeutic will continue 5 mg nightly follow-up daily INR (5) Antiphospholipid antibody syndrome Is this a current diagnosis for this admission?: Yes Plan: Continue Coumadin - Time Time Spent with patient: 35 or more minutes - Inpatient Certification Medical Necessity: Need Close Monitoring Due to Risk of Patient Decompensation
[2019-02-14] MEDS: PANTOPRAZOLE SODIUM 40 MG TABLET.DR PO SCH (05:18)
[2019-02-14] MEDS: GABAPENTIN 400 MG CAPSULE PO SCH ×3 (05:19→21:57)
[2019-02-14] MEDS ORDERED: GLUCAGON,HUMAN RECOMB 1 MG INJ IM PRN (09:17)
[2019-02-14] MEDS ORDERED: DEXTROSE 40% GEL 15 GM TUBE PO PRN ×2 (09:17)
[2019-02-14] MEDS ORDERED: DEXTROSE 50%-WATER 25 GM/50 ML DISP.SYRIN IV PRN ×2 (09:17)
[2019-02-14] MEDS: LISINOPRIL 5 MG TABLET PO SCH (09:28)
[2019-02-14] MEDS: AMANTADINE HCL 100 MG CAPSULE PO SCH (09:29)
[2019-02-14] MEDS: CLONAZEPAM 1 MG TABLET PO SCH ×2 (09:31→17:15)
[2019-02-14] MEDS: DOCUSATE SODIUM 100 MG CAPSULE PO SCH ×2 (09:31→18:34)
[2019-02-14] MEDS: METOPROLOL TARTRATE 25 MG TABLET PO SCH ×2 (09:33→21:51)
[2019-02-14] MEDS: INSULIN LISPRO 100 UNIT/ML 3 ML VIAL SUBCUT SCH ×3 (09:33→16:45)
[2019-02-14] MEDS ORDERED: ARIPIPRAZOLE 2 MG TABLET PO SCH (10:00)
--- NOTE | 2019-02-14 12:07 | Progress Note ---
Provider Note Provider Note: MIGUEL JONES is a 48 year old female with a complex past medical history of morbid obesity, lupus with antiphospholipid syndrome, multiple sclerosis, chronic pain, medication induced immunosuppression and diabetes. She presents with 9 days of right lower leg erythema and pain prompting her to seek evaluation in the emergency room 7 days ago she completed a course of Keflex without significant improvement. She is found to have +2 edema to the right lower leg, tachycardia, leukocytosis and pain she is ordered vancomycin, cefepime and referred to the hospitalist for admission. She admits previous history of multiple episodes of lower extremity cellulitis denying MRSA admitting 1 culture positive strep. 07/2019. Patient is very pleasant and cooperative with physical examination, stating that her right lower extremities symptoms has improved significantly. Denies any fever, chills, nausea, vomiting, diarrhea, constipation or any urinary symptoms. Vitals have been stable, surgery has been consulted no intervention at this point, ultra sound of the extremity is negative for any abscess. WBC trending down, currently on vancomycin.
[2019-02-14] MEDS ORDERED: (PENDING PHARMACY ID) (Oxycodone Hcl/Acetaminophen [Oxycodon-Acetaminophen 7.5-325] 1 EACH PO PRN (12:23)
[2019-02-14] MEDS ORDERED: DOCUSATE SODIUM 100 MG CAPSULE PO PRN (12:23)
[2019-02-14] MEDS: INSULIN REG, HUMAN 100 UNIT/ML 3 ML VIAL (PYX) SUBCUT SCH ×3 (12:37→21:53)
[2019-02-14] MEDS: SUCRALFATE 1 GM TABLET PO SCH (15:56)
[2019-02-14] MEDS: VANCOMYCIN HCL 1,500 MG in DEXTROSE 5%-WATER 250 ML IV SCH (17:15)
[2019-02-14] MEDS: HYDROXYCHLOROQUINE SULFATE 200 MG TABLET PO SCH (17:15)
[2019-02-14] MEDS: OXYCODONE-ACETAMINOPHEN 5-325 MG TABLET PO PRN (18:34)
[2019-02-14] MEDS: TRAMADOL HCL 50 MG TABLET PO PRN (21:50)
[2019-02-14] MEDS: ATORVASTATIN CALCIUM 20 MG TABLET PO SCH (21:51)
[2019-02-14] MEDS: VENLAFAXINE HCL 37.5 MG CAP.SR.24H PO SCH (21:53)
[2019-02-14] MEDS: MYCOPHENOLATE MOFETIL 250 MG CAPSULE PO SCH (21:56)
[2019-02-14] MEDS: ARIPIPRAZOLE 5 MG TABLET PO SCH (21:57)
[2019-02-14] MEDS: BACLOFEN 10 MG TABLET PO SCH (21:57)
[2019-02-14] MEDS ORDERED: INSULIN GLARGINE,HUM.REC.ANLOG 1,000 UNIT/10 ML VIAL (PYX) SUBCUT ONE (22:00)
[2019-02-14] MEDS ORDERED: WARFARIN SODIUM 5 MG TABLET PO SCH ×2 (22:00)
[2019-02-14] MEDS ORDERED: (PENDING PHARMACY ID) (Suvorexant [Belsomra] 20 MG) PO SCH (22:00)
[2019-02-14] MEDS ORDERED: (PENDING PHARMACY ID) (Warfarin Sodium 5 MG) PO SCH ×2 (22:00)
[2019-02-14] MEDS: INSULIN GLARGINE,HUM.REC.ANLOG 1,000 UNIT/10 ML VIAL SUBCUT SCH (22:27)
[2019-02-15] MEDS: BACLOFEN 10 MG TABLET PO SCH ×3 (05:20→21:48)
[2019-02-15] MEDS: GABAPENTIN 400 MG CAPSULE PO SCH ×3 (05:20→21:48)
[2019-02-15] MEDS: PANTOPRAZOLE SODIUM 40 MG TABLET.DR PO SCH (05:20)
[2019-02-15] MEDS: VANCOMYCIN HCL 1,500 MG in DEXTROSE 5%-WATER 250 ML IV SCH ×2 (05:21→19:44)
[2019-02-15 05:43] LABS: ABSOLUTE BASOPHILS # (AUTO) 0.1 10^3/uL (0.0-0.2); ABSOLUTE EOSINOPHILS # (AUTO) 0.2 10^3/uL (0.0-0.6); ABSOLUTE LYMPHOCYTES (AUTO) 2.1 10^3/uL (0.5-4.7); ABSOLUTE MONOCYTES (AUTO) 0.8 10^3/uL (0.1-1.4); ABSOLUTE NEUT (AUTO) 6.7 10^3/uL (1.7-8.2); BASOPHILS % (AUTO) 0.7 % (0-2); EOSINOPHILS % (AUTO) 1.8 % (0-6); HEMATOCRIT 29.7 % (36.0-47.0); HEMOGLOBIN 10.2 g/dL (12.0-15.5); LYMPHOCYTES % (AUTO) 21.6 % (13-45); MEAN CORPUSCULAR HEMOGLOBIN 29.5 pg (27.0-33.4); MEAN CORPUSCULAR HGB CONC 34.3 g/dL (32.0-36.0); MEAN CORPUSCULAR VOLUME 86 fl (80-97); MONOCYTES % (AUTO) 7.7 % (3-13); PLATELET COUNT 248 10^3/uL (150-450); RED BLOOD COUNT 3.45 10^6/uL (3.72-5.28); RED CELL DISTRIBUTION WIDTH 15.6 % (11.5-14.0); SEGMENTED NEUTROPHILS % (AUTO) 68.2 % (42-78); TOTAL CELLS COUNTED % (AUTO) 100 %; WHITE BLOOD COUNT 9.8 10^3/uL (4.0-10.5)
[2019-02-15 06:04] LABS: ANION GAP 9 (5-19); BLOOD UREA NITROGEN 10 mg/dL (7-20); CALCIUM 8.8 mg/dL (8.4-10.2); CARBON DIOXIDE 29 mmol/L (22-30); CHLORIDE 102 mmol/L (98-107); GLUCOSE 158 mg/dL (75-110); POTASSIUM 4.3 mmol/L (3.6-5.0); SODIUM 139.5 mmol/L (137-145)
[2019-02-15] MEDS: INSULIN LISPRO 100 UNIT/ML 3 ML VIAL SUBCUT SCH ×3 (08:46→18:13)
[2019-02-15] MEDS: INSULIN REG, HUMAN 100 UNIT/ML 3 ML VIAL (PYX) SUBCUT SCH ×4 (08:47→21:52)
[2019-02-15] MEDS: LISINOPRIL 5 MG TABLET PO SCH (08:49)
[2019-02-15] MEDS: AMANTADINE HCL 100 MG CAPSULE PO SCH (08:54)
[2019-02-15] MEDS: OXYCODONE-ACETAMINOPHEN 5-325 MG TABLET PO PRN ×2 (08:56→18:14)
[2019-02-15] MEDS: METOPROLOL TARTRATE 25 MG TABLET PO SCH ×2 (09:03→21:52)
[2019-02-15] MEDS: DOCUSATE SODIUM 100 MG CAPSULE PO SCH ×2 (09:04→18:14)
[2019-02-15] MEDS: MYCOPHENOLATE MOFETIL 250 MG CAPSULE PO SCH ×2 (09:05→21:49)
[2019-02-15] MEDS: HYDROXYCHLOROQUINE SULFATE 200 MG TABLET PO SCH ×2 (09:05→18:16)
[2019-02-15] MEDS: CLONAZEPAM 1 MG TABLET PO SCH ×2 (09:05→18:16)
[2019-02-15] MEDS ORDERED: (PENDING PHARMACY ID) (Liraglutide [Victoza 2-Pak] 1.8 MG) SQ SCH (10:00)
--- NOTE | 2019-02-15 10:10 | PDOC PROGRESS REPORT ---
Subjective Progress Note for:: 02/15/19 Subjective:: MIGUEL JONES is a 48 year old female with a complex past medical history of morbid obesity, lupus with antiphospholipid syndrome, multiple sclerosis, chronic pain, medication induced immunosuppression and diabetes. She presents with 9 days of right lower leg erythema and pain prompting her to seek evaluation in the emergency room 7 days ago she completed a course of Keflex without significant improvement. She is found to have +2 edema to the right lower leg, tachycardia, leukocytosis and pain she is ordered vancomycin, cefepime and referred to the hospitalist for admission. She admits previous history of multiple episodes of lower extremity cellulitis denying MRSA admitting 1 culture positive strep. 02/15/2019. No acute events overnight. Patient has improvement of her right lower extremity pain and swelling, however she still has erythema and warmth. Denies any fever, chills, nausea, vomiting, diarrhea, constipation or any urinary symptoms. Patient is ambulatory, having normal bowel and bladder movements and is p.o. tolerant. Plan is for possible discharge home tomorrow. Reason For Visit: RIGHT LEG CELLULITIS,MORBID OBESITY,LUPUS Physical Exam Vital Signs: Temp Pulse Resp BP Pulse Ox 98.2 F 102 H 16 125/75 94 02/15/19 00:00 02/15/19 00:00 02/15/19 00:00 02/15/19 00:00 02/15/19 00:00 Intake & Output 02/14/19 02/15/19 02/16/19 06:59 06:59 06:59 Intake Total 400 1570 Balance 400 1570 Weight 155.5 kg 155.5 kg General appearance: PRESENT: no acute distress, obese, well-developed, well- nourished Head exam: PRESENT: atraumatic, normocephalic Eye exam: PRESENT: conjunctiva pink, EOMI, PERRLA. ABSENT: scleral icterus Ear exam: PRESENT: normal external ear exam Mouth exam: PRESENT: moist, tongue midline Neck exam: ABSENT: carotid bruit, JVD, lymphadenopathy, thyromegaly Respiratory exam: PRESENT: clear to auscultation lorelei. ABSENT: rales, rhonchi, wheezes Cardiovascular exam: PRESENT: RRR. ABSENT: diastolic murmur, rubs, systolic murmur Pulses: PRESENT: normal dorsalis pedis pul Vascular exam: PRESENT: normal capillary refill GI/Abdominal exam: PRESENT: normal bowel sounds, soft. ABSENT: distended, guarding, mass, organolmegaly, rebound, tenderness Rectal exam: PRESENT: deferred Extremities exam: PRESENT: full ROM. ABSENT: calf tenderness, clubbing, pedal edema Musculoskeletal exam: PRESENT: other - Right lower extremity erythema below the knee, improving, warmth, neurovascularly intact. TTP. Neurological exam: PRESENT: alert, awake, oriented to person, oriented to place, oriented to time, oriented to situation, CN II-XII grossly intact. ABSENT: motor sensory deficit Psychiatric exam: PRESENT: appropriate affect, normal mood. ABSENT: homicidal ideation, suicidal ideation Skin exam: PRESENT: dry, intact, warm. ABSENT: cyanosis, rash Results Laboratory Results: 02/15/19 05:00 02/15/19 05:00 02/15/19 02/15/19 05:00 05:00 WBC 9.8 RBC 3.45 L Hgb 10.2 L Hct 29.7 L MCV 86 MCH 29.5 MCHC 34.3 RDW 15.6 H Plt Count 248 Seg Neutrophils % 68.2 Lymphocytes % 21.6 Monocytes % 7.7 Eosinophils % 1.8 Basophils % 0.7 Absolute Neutrophils 6.7 Absolute Lymphocytes 2.1 Absolute Monocytes 0.8 Absolute Eosinophils 0.2 Absolute Basophils 0.1 Sodium 139.5 Potassium 4.3 Chloride 102 Carbon Dioxide 29 Anion Gap 9 BUN 10 Creatinine 0.62 Est GFR ( Amer) > 60 Est GFR (Non-Af Amer) > 60 Glucose 158 H Calcium 8.8 Impressions: Extremity Ultrasound 02/14/19 00:00 IMPRESSION: No abscess. Assessment and Plan - Diagnosis (1) Cellulitis of right lower extremity Is this a current diagnosis for this admission?: Yes Plan: Improving. Persistent but improving erythema, TTP. 02/15/2018. WBC 9.8, hemoglobin 10.2, platelets 248. 2 of IV vancomycin. Received 1 day of IV ceftriaxone. Total days of antibiotic 2. 02/14/2019. Right lower extremity ultrasound negative for any abscess. Surgery consulted no intervention recommended at this point. (2) Anticoagulated on Coumadin Is this a current diagnosis for this admission?: No Plan: Patient is on Coumadin 7.5 mg 4 days a week alternating with 5 mg. Currently supratherapeutic will continue 5 mg nightly follow-up daily INR Pending INR (3) Antiphospholipid antibody syndrome Is this a current diagnosis for this admission?: Yes Plan: Continue Coumadin. Out pt Rheumatology follow up. (4) Hx of systemic lupus erythematosus (SLE) Is this a current diagnosis for this admission?: No Plan: Does not seem to be in any acute flare. Outpatient rheumatology follow-up. Currently on: Plaquenil 200 mg p.o. twice daily, mycophenolate mofetil 250 mg p.o. twice daily. (5) Chronic pain syndrome Is this a current diagnosis for this admission?: No Plan: Start home meds. Outpatient PCP follow-up. 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 A1c pending. Continue diabetic diet, sliding scale insulin, pre-meal insulin, long-acting insulin, adjust dosage as needed. Outpatient PCP follow-up. (7) Hypertension Is this a current diagnosis for this admission?: Yes Plan: Controlled. Currently on lisinopril 5 mg p.o. daily, metoprolol 12.5 mg p.o. twice daily. (8) Dyslipidemia Is this a current diagnosis for this admission?: No Plan: Diet and lifestyle modification advised. Currently on Atorvastatin 20 mg p.o. daily (9) Anxiety Is this a current diagnosis for this admission?: No Plan: Well-controlled. Restarted on clonazepam 0.5 mg p.o. twice daily, Effexor 37.5 mg p.o. nightly. (10) Depression Is this a current diagnosis for this admission?: No Plan: Denies any suicidal or homicidal ideation. Normal mood and affect. Currently on Effexor 37.5 mg p.o. nightly. (11) Morbid obesity with BMI of 40.0-44.9, adult Is this a current diagnosis for this admission?: No Plan: Diet and lifestyle modification recommended. TSH pending. (12) Anemia in chronic illness Is this a current diagnosis for this admission?: No Plan: Most likely anemia chronic disease due to multiple comorbidities. Denies any hematemesis, easy bruising, vaginal bleeding, melena, hematochezia, nosebleeds or hemoptysis. Obtain iron panel.
[2019-02-15 11:07] LABS: ABSOLUTE RETICS # 0.083 10^6/uL (0.028-0.122); RETICULOCYTE COUNT (AUTO) 2.39 % (0.66-2.85)
[2019-02-15 11:51] LABS: IRON(TIBC) 34.1 ug/dL (37-170)
[2019-02-15] MEDS ORDERED: EAC PO SCH (12:00)
[2019-02-15] MEDS ORDERED: [UNRECOGNIZED DRUG - OTHER] PO SCH (12:00)
[2019-02-15] MEDS ORDERED: MV MN PO SCH (12:00)
[2019-02-15] MEDS ORDERED: CALCIUM PO SCH (12:00)
[2019-02-15] MEDS ORDERED: VIT K PO SCH (12:00)
[2019-02-15] MEDS ORDERED: FOLIC ACID PO SCH (12:00)
[2019-02-15 12:42] LABS: INTERNATIONAL RATION (INR) 3.49; PROTHROMBIN TIME 36.7 SEC (11.4-15.4)
[2019-02-15 13:04] LABS: FOLATE > 20.00 ng/mL (>2.76)
[2019-02-15] MEDS: SUCRALFATE 1 GM TABLET PO SCH ×2 (14:43→18:15)
[2019-02-15] MEDS: MULTIVITAMIN TABLET PO SCH (14:43)
[2019-02-15] MEDS: OXYCODONE HCL IR 5 MG TABLET PO PRN (21:46)
[2019-02-15] MEDS: ACETAMINOPHEN 325 MG TABLET PO PRN (21:47)
[2019-02-15] MEDS: ATORVASTATIN CALCIUM 20 MG TABLET PO SCH (21:48)
[2019-02-15] MEDS: ARIPIPRAZOLE 5 MG TABLET PO SCH (21:49)
[2019-02-15] MEDS: VENLAFAXINE HCL 37.5 MG CAP.SR.24H PO SCH (21:49)
[2019-02-15] MEDS ORDERED: (PENDING PHARMACY ID) (Warfarin Sodium 7.5 MG) PO SCH (22:00)
[2019-02-15] MEDS ORDERED: WARFARIN SODIUM 7.5 MG TABLET PO SCH (22:00)
[2019-02-15] MEDS ORDERED: INSULIN GLARGINE,HUM.REC.ANLOG 1,000 UNIT/10 ML VIAL (PYX) SUBCUT ONE (22:15)
[2019-02-15] MEDS: INSULIN GLARGINE,HUM.REC.ANLOG 1,000 UNIT/10 ML VIAL SUBCUT SCH (22:16)
[2019-02-16] MEDS ORDERED: SULFAMETHOXAZOLE/TRIMETHOPRIM 800-160 MG TABLET PO ONE (06:00)
[2019-02-16] MEDS: BACLOFEN 10 MG TABLET PO SCH ×3 (06:35→22:06)
[2019-02-16] MEDS: GABAPENTIN 400 MG CAPSULE PO SCH ×3 (06:35→22:05)
[2019-02-16] MEDS: PANTOPRAZOLE SODIUM 40 MG TABLET.DR PO SCH (06:35)
[2019-02-16 06:45] LABS: ABSOLUTE BASOPHILS # (AUTO) 0.1 10^3/uL (0.0-0.2); ABSOLUTE EOSINOPHILS # (AUTO) 0.1 10^3/uL (0.0-0.6); ABSOLUTE LYMPHOCYTES (AUTO) 1.6 10^3/uL (0.5-4.7); ABSOLUTE MONOCYTES (AUTO) 0.8 10^3/uL (0.1-1.4); ABSOLUTE NEUT (AUTO) 7.6 10^3/uL (1.7-8.2); BASOPHILS % (AUTO) 0.5 % (0-2); EOSINOPHILS % (AUTO) 1.4 % (0-6); HEMATOCRIT 30.3 % (36.0-47.0); HEMOGLOBIN 10.3 g/dL (12.0-15.5); LYMPHOCYTES % (AUTO) 15.4 % (13-45); MEAN CORPUSCULAR HEMOGLOBIN 29.7 pg (27.0-33.4); MEAN CORPUSCULAR VOLUME 87 fl (80-97); MONOCYTES % (AUTO) 7.8 % (3-13); PLATELET COUNT 244 10^3/uL (150-450); RED BLOOD COUNT 3.48 10^6/uL (3.72-5.28); RED CELL DISTRIBUTION WIDTH 15.6 % (11.5-14.0); SEGMENTED NEUTROPHILS % (AUTO) 74.9 % (42-78); TOTAL CELLS COUNTED % (AUTO) 100 %; WHITE BLOOD COUNT 10.2 10^3/uL (4.0-10.5)
[2019-02-16 06:48] LABS: INTERNATIONAL RATION (INR) 3.08; PROTHROMBIN TIME 33.2 SEC (11.4-15.4)
[2019-02-16 07:01] LABS: ALANINE AMINOTRANSFERASE 36 U/L (9-52); ALBUMIN 3.3 g/dL (3.5-5.0); ALKALINE PHOSPHATASE 96 U/L (38-126); ANION GAP 9 (5-19); ASPARTATE AMINO TRANSFERASE 36 U/L (14-36); BILIRUBIN,DIRECT 0.1 mg/dL (0.0-0.4); BILIRUBIN,TOTAL 0.2 mg/dL (0.2-1.3); BLOOD UREA NITROGEN 9 mg/dL (7-20); CALCIUM 8.8 mg/dL (8.4-10.2); CARBON DIOXIDE 28 mmol/L (22-30); CHLORIDE 101 mmol/L (98-107); GLUCOSE 216 mg/dL (75-110); POTASSIUM 4.3 mmol/L (3.6-5.0); TOTAL PROTEIN 5.9 g/dL (6.3-8.2)
[2019-02-16] MEDS: INSULIN REG, HUMAN 100 UNIT/ML 3 ML VIAL (PYX) SUBCUT SCH ×4 (07:43→22:12)
[2019-02-16] MEDS: INSULIN LISPRO 100 UNIT/ML 3 ML VIAL SUBCUT SCH ×3 (09:21→16:38)
[2019-02-16] MEDS: CLONAZEPAM 1 MG TABLET PO SCH ×2 (09:25→17:26)
[2019-02-16] MEDS: DOCUSATE SODIUM 100 MG CAPSULE PO SCH ×2 (09:25→17:26)
[2019-02-16] MEDS: LISINOPRIL 5 MG TABLET PO SCH (09:26)
[2019-02-16] MEDS: HYDROXYCHLOROQUINE SULFATE 200 MG TABLET PO SCH ×2 (09:27→17:27)
[2019-02-16] MEDS: METOPROLOL TARTRATE 25 MG TABLET PO SCH ×2 (09:27→22:07)
[2019-02-16] MEDS: AMANTADINE HCL 100 MG CAPSULE PO SCH (09:28)
[2019-02-16] MEDS: MYCOPHENOLATE MOFETIL 250 MG CAPSULE PO SCH ×2 (09:29→22:14)
[2019-02-16] MEDS: TRAMADOL HCL 50 MG TABLET PO PRN (09:51)
[2019-02-16] MEDS: ACETAMINOPHEN 325 MG TABLET PO PRN (11:48)
[2019-02-16] MEDS: MULTIVITAMIN TABLET PO SCH (11:49)
[2019-02-16] MEDS: SUCRALFATE 1 GM TABLET PO SCH ×2 (11:50→16:37)
--- NOTE | 2019-02-16 14:11 | PDOC PROGRESS REPORT ---
Subjective Progress Note for:: 02/16/19 Subjective:: MIGUEL JONES is a 48 year old female with a complex past medical history of morbid obesity, lupus with antiphospholipid syndrome, multiple sclerosis, chronic pain, medication induced immunosuppression and diabetes. She presents with 9 days of right lower leg erythema and pain prompting her to seek evaluation in the emergency room 7 days ago she completed a course of Keflex without significant improvement. She is found to have +2 edema to the right lower leg, tachycardia, leukocytosis and pain she is ordered vancomycin, cefepime and referred to the hospitalist for admission. She admits previous history of multiple episodes of lower extremity cellulitis denying MRSA admitting 1 culture positive strep. 02/15/2019. No acute events overnight. Patient has improvement of her right lower extremity pain and swelling, however she still has erythema and warmth. Denies any fever, chills, nausea, vomiting, diarrhea, constipation or any urinary symptoms. Patient is ambulatory, having normal bowel and bladder movements and is p.o. tolerant. Plan is for possible discharge home tomorrow. 02/16/2019. No acute events overnight. Right lower extremity tenderness improving however patient still has erythema and swelling and warmth of the right lower extremity. Last night patient lost venous access and her vancomycin was switched to Bactrim. Patient has poor venous access unfortunately patient is not a good candidate to have a central line placed because of multiple comorbidities and supratherapeutic INR. Will place patient on clindamycin if symptomatic improvement by tomorrow patient could be sent home on clindamycin if worsening patient will need to have a central line placed so vancomycin could be re-initiated. Patient is very pleasant and cooperative with physical examination and agrees with the plan. Denies any fever, chills, nausea, vomit ing, diarrhea, constipation or any urinary symptoms. Reason For Visit: RIGHT LEG CELLULITIS,MORBID OBESITY,LUPUS Physical Exam Vital Signs: Temp Pulse Resp BP Pulse Ox 99.2 F 108 H 18 113/62 96 02/16/19 08:00 02/16/19 08:00 02/16/19 08:00 02/16/19 08:00 02/16/19 08:00 Intake & Output 02/15/19 02/16/19 02/17/19 06:59 06:59 06:59 Intake Total 1570 3280 Balance 1570 3280 Weight 155.5 kg 157.3 kg General appearance: PRESENT: no acute distress, obese, well-developed, well- nourished Head exam: PRESENT: atraumatic, normocephalic Eye exam: PRESENT: conjunctiva pink, EOMI, PERRLA. ABSENT: scleral icterus Ear exam: PRESENT: normal external ear exam Mouth exam: PRESENT: moist, tongue midline Neck exam: ABSENT: carotid bruit, JVD, lymphadenopathy, thyromegaly Respiratory exam: PRESENT: clear to auscultation lorelei. ABSENT: rales, rhonchi, wheezes Cardiovascular exam: PRESENT: RRR. ABSENT: diastolic murmur, rubs, systolic murmur Pulses: PRESENT: normal dorsalis pedis pul Vascular exam: PRESENT: normal capillary refill GI/Abdominal exam: PRESENT: normal bowel sounds, soft. ABSENT: distended, guarding, mass, organolmegaly, rebound, tenderness Rectal exam: PRESENT: deferred Extremities exam: PRESENT: full ROM, other - Right lower extremity below-knee erythema, swelling, warmth. No active discharge. Neurovascularly intact.. ABSENT: calf tenderness, clubbing, pedal edema Neurological exam: PRESENT: alert, awake, oriented to person, oriented to place, oriented to time, oriented to situation, CN II-XII grossly intact. ABSENT: motor sensory deficit Psychiatric exam: PRESENT: appropriate affect, normal mood. ABSENT: homicidal ideation, suicidal ideation Skin exam: PRESENT: dry, intact, warm. ABSENT: cyanosis, rash Results Laboratory Results: 02/16/19 05:53 02/16/19 05:53 02/16/19 02/16/19 05:53 05:53 WBC 10.2 RBC 3.48 L Hgb 10.3 L Hct 30.3 L MCV 87 MCH 29.7 MCHC 34.0 RDW 15.6 H Plt Count 244 Seg Neutrophils % 74.9 Lymphocytes % 15.4 Monocytes % 7.8 Eosinophils % 1.4 Basophils % 0.5 Absolute Neutrophils 7.6 Absolute Lymphocytes 1.6 Absolute Monocytes 0.8 Absolute Eosinophils 0.1 Absolute Basophils 0.1 Sodium 138.0 Potassium 4.3 Chloride 101 Carbon Dioxide 28 Anion Gap 9 BUN 9 Creatinine 0.66 Est GFR ( Amer) > 60 Est GFR (Non-Af Amer) > 60 Glucose 216 H Calcium 8.8 Magnesium 1.8 Total Bilirubin 0.2 AST 36 ALT 36 Alkaline Phosphatase 96 Total Protein 5.9 L Albumin 3.3 L Impressions: Extremity Ultrasound 02/14/19 00:00 IMPRESSION: No abscess. Assessment and Plan - Diagnosis (1) Cellulitis of right lower extremity Is this a current diagnosis for this admission?: Yes Plan: Improving. Persistent but improving erythema. Tenderness resolved. 02/15/2018. WBC 9.8, hemoglobin 10.2, platelets 248. 2 of IV vancomycin. Received 1 day of IV ceftriaxone. Total days of antibiotic 2. 02/14/2019. Right lower extremity ultrasound negative for any abscess. Surgery consulted no intervention recommended at this point. Note: Last night 02/15/2019 patient lost venous access and her vancomycin was switched to Bactrim. Patient has already failed treatment with Keflex as outpatient, Bactrim does not seem to have helped. Patient has poor venous access and unfortunately patient is not a good candidate to have a central line placed because of supratherapeutic INR. Will place patient on clindamycin and if symptomatic improvement by tomorrow patient could be sent home on clindamycin if worsening patient will need to have a central line placed so vancomycin could be restarted (2) Anticoagulated on Coumadin Is this a current diagnosis for this admission?: No Plan: Patient is on Coumadin 7.5 mg 4 days a week alternating with 5 mg. Currently supratherapeutic will continue 5 mg nightly follow-up daily INR INR 3.04. Today Goal of INR 2-2.5. Hold Coumadin for tonight. INR tomorrow. (3) Antiphospholipid antibody syndrome Is this a current diagnosis for this admission?: Yes Plan: Continue Coumadin. Out pt Rheumatology follow up. (4) Hx of systemic lupus erythematosus (SLE) Is this a current diagnosis for this admission?: No Plan: Does not seem to be in any acute flare. Outpatient rheumatology follow-up. Currently on: Plaquenil 200 mg p.o. twice daily, mycophenolate mofetil 250 mg p.o. twice daily. (5) Chronic pain syndrome Is this a current diagnosis for this admission?: No Plan: Start home meds. Outpatient PCP follow-up. 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 A1c pending. Continue diabetic diet, sliding scale insulin, pre-meal insulin, long-acting insulin, adjust dosage as needed. Outpatient PCP follow-up. (7) Hypertension Is this a current diagnosis for this admission?: Yes Plan: Controlled. Currently on lisinopril 5 mg p.o. daily, metoprolol 12.5 mg p.o. twice daily. (8) Dyslipidemia Is this a current diagnosis for this admission?: No Plan: Diet and lifestyle modification advised. Currently on Atorvastatin 20 mg p.o. daily (9) Anxiety Is this a current diagnosis for this admission?: No Plan: Well-controlled. Restarted on clonazepam 0.5 mg p.o. twice daily, Effexor 37.5 mg p.o. nightly. (10) Depression Is this a current diagnosis for this admission?: No Plan: Denies any suicidal or homicidal ideation. Normal mood and affect. Currently on Effexor 37.5 mg p.o. nightly. (11) Morbid obesity with BMI of 40.0-44.9, adult Is this a current diagnosis for this admission?: No Plan: Diet and lifestyle modification recommended. TSH pending. (12) Anemia in chronic illness Is this a current diagnosis for this admission?: No Plan: Most likely anemia chronic disease due to multiple comorbidities. Denies any hematemesis, easy bruising, vaginal bleeding, melena, hematochezia, nosebleeds or hemoptysis. Ferritin within normal limits. Iron work-up suggestive of anemia of chronic disease.
[2019-02-16] MEDS: OXYCODONE HCL IR 5 MG TABLET PO PRN (15:36)
[2019-02-16] MEDS: CYANOCOBALAMIN (VITAMIN B-12) 1,000 MCG TABLET PO SCH (15:38)
[2019-02-16] MEDS: CLINDAMYCIN HCL 150 MG CAPSULE PO SCH ×2 (15:39→22:18)
[2019-02-16] MEDS: Liraglutide (Victoza) 1.8 MG SUBCUT SCH (16:42)
[2019-02-16] MEDS ORDERED: SULFAMETHOXAZOLE/TRIMETHOPRIM 800-160 MG TABLET PO SCH (18:00)
[2019-02-16 18:47] LABS: VANCOMYCIN,TROUGH 5.1 ug/mL (5.0-20.0)
[2019-02-16] MEDS ORDERED: INSULIN GLARGINE,HUM.REC.ANLOG 1,000 UNIT/10 ML VIAL (PYX) SUBCUT ONE ×2 (21:58→22:01)
[2019-02-16] MEDS ORDERED: Suvorexant [Belsomra] 20 MG PO SCH (22:00)
[2019-02-16] MEDS: INSULIN GLARGINE,HUM.REC.ANLOG 1,000 UNIT/10 ML VIAL SUBCUT SCH (22:03)
[2019-02-16] MEDS: ATORVASTATIN CALCIUM 20 MG TABLET PO SCH (22:05)
[2019-02-16] MEDS: ARIPIPRAZOLE 5 MG TABLET PO SCH (22:06)
[2019-02-16] MEDS: VENLAFAXINE HCL 37.5 MG CAP.SR.24H PO SCH (22:15)
[2019-02-17 06:09] LABS: ABSOLUTE BASOPHILS # (AUTO) 0.1 10^3/uL (0.0-0.2); ABSOLUTE EOSINOPHILS # (AUTO) 0.2 10^3/uL (0.0-0.6); ABSOLUTE LYMPHOCYTES (AUTO) 2.2 10^3/uL (0.5-4.7); ABSOLUTE MONOCYTES (AUTO) 0.7 10^3/uL (0.1-1.4); ABSOLUTE NEUT (AUTO) 6.8 10^3/uL (1.7-8.2); BASOPHILS % (AUTO) 0.7 % (0-2); EOSINOPHILS % (AUTO) 2.2 % (0-6); HEMATOCRIT 31.9 % (36.0-47.0); HEMOGLOBIN 10.7 g/dL (12.0-15.5); LYMPHOCYTES % (AUTO) 21.5 % (13-45); MEAN CORPUSCULAR HEMOGLOBIN 29.2 pg (27.0-33.4); MEAN CORPUSCULAR HGB CONC 33.4 g/dL (32.0-36.0); MEAN CORPUSCULAR VOLUME 87 fl (80-97); MONOCYTES % (AUTO) 7.2 % (3-13); PLATELET COUNT 239 10^3/uL (150-450); RED BLOOD COUNT 3.66 10^6/uL (3.72-5.28); SEGMENTED NEUTROPHILS % (AUTO) 68.4 % (42-78); TOTAL CELLS COUNTED % (AUTO) 100 %
[2019-02-17 06:15] LABS: INTERNATIONAL RATION (INR) 2.13; PROTHROMBIN TIME 24.8 SEC (11.4-15.4)
[2019-02-17] MEDS: CLINDAMYCIN HCL 150 MG CAPSULE PO SCH (06:41)
[2019-02-17] MEDS: PANTOPRAZOLE SODIUM 40 MG TABLET.DR PO SCH (06:42)
[2019-02-17] MEDS: BACLOFEN 10 MG TABLET PO SCH (06:42)
[2019-02-17 06:48] LABS: ALANINE AMINOTRANSFERASE 40 U/L (9-52); ALBUMIN 3.6 g/dL (3.5-5.0); ALKALINE PHOSPHATASE 95 U/L (38-126); ANION GAP 9 (5-19); ASPARTATE AMINO TRANSFERASE 23 U/L (14-36); BILIRUBIN,DIRECT 0.2 mg/dL (0.0-0.4); BILIRUBIN,TOTAL 0.3 mg/dL (0.2-1.3); BLOOD UREA NITROGEN 12 mg/dL (7-20); CARBON DIOXIDE 30 mmol/L (22-30); CHLORIDE 100 mmol/L (98-107); GLUCOSE 219 mg/dL (75-110); POTASSIUM 4.4 mmol/L (3.6-5.0); TOTAL PROTEIN 6.3 g/dL (6.3-8.2)
[2019-02-17] MEDS: GABAPENTIN 400 MG CAPSULE PO SCH (07:46)
[2019-02-17] MEDS: AMANTADINE HCL 100 MG CAPSULE PO SCH (07:57)
[2019-02-17] MEDS: LISINOPRIL 5 MG TABLET PO SCH (07:57)
[2019-02-17] MEDS: INSULIN LISPRO 100 UNIT/ML 3 ML VIAL SUBCUT SCH ×2 (07:57→11:57)
[2019-02-17] MEDS: INSULIN REG, HUMAN 100 UNIT/ML 3 ML VIAL (PYX) SUBCUT SCH ×2 (07:58→11:56)
[2019-02-17] MEDS ORDERED: GABAPENTIN 400 MG CAPSULE PO ONE (08:00)
[2019-02-17] MEDS ORDERED: Liraglutide (Victoza) 1.8 MG SUBCUT SCH (10:00)
[2019-02-17] MEDS: CLONAZEPAM 1 MG TABLET PO SCH (10:11)
[2019-02-17] MEDS: DOCUSATE SODIUM 100 MG CAPSULE PO SCH (10:11)
[2019-02-17] MEDS: METOPROLOL TARTRATE 25 MG TABLET PO SCH (10:12)
[2019-02-17] MEDS: HYDROXYCHLOROQUINE SULFATE 200 MG TABLET PO SCH (10:15)
[2019-02-17] MEDS: Liraglutide (Victoza) 1.8 MG SUBCUT SCH (10:19)
[2019-02-17] MEDS: MYCOPHENOLATE MOFETIL 250 MG CAPSULE PO SCH (10:21)
[2019-02-17] MEDS: SUCRALFATE 1 GM TABLET PO SCH (11:55)
[2019-02-17] MEDS: MULTIVITAMIN TABLET PO SCH (11:55)
[2019-02-17] MEDS: CYANOCOBALAMIN (VITAMIN B-12) 1,000 MCG TABLET PO SCH (11:55)
[2019-02-17 12:26] VITALS: BP 113/62
--- NOTE | 2019-02-17 17:03 | PDOC DISCHARGE SUMMARY ---
General - Admit/Disc Date/PCP Admission Date/Primary Care Provider: 02/14/19 01:06 JARON LYON MD Discharge Date: 02/17/19 - Discharge Diagnosis (1) Cellulitis of right lower extremity Is this a current diagnosis for this admission?: Yes Summary: Initially received IV antibiotics and was transitioned to clindamycin, which she will finish as an outpatient. She responded well. Recommended she take a probiotic supplement while on clindamycin. (2) Antiphospholipid antibody syndrome Is this a current diagnosis for this admission?: Yes Summary: She follows up with rheumatology as an outpatient (3) Diabetes mellitus type II, controlled Is this a current diagnosis for this admission?: Yes Summary: She was well controlled and continues her home medications (4) Morbid obesity with BMI of 40.0-44.9, adult Is this a current diagnosis for this admission?: Yes Summary: Strongly encouraged lifestyle modification - Additional Information Resuscitation Status: Full Code Discharge Diet: Diabetic Discharge Activity: Activity As Tolerated Prescriptions: Clindamycin HCl [Cleocin 150 mg Capsule] 300 mg PO Q8 #42 capsule Home Medications: Amantadine HCl [Symmetrel 100 mg Capsule] 100 mg PO QAM 08/31/18 Atorvastatin Calcium [Lipitor 20 mg Tablet] 20 mg PO QHS 08/31/18 Baclofen [Baclofen 10 mg Tablet] 10 mg PO Q8 08/31/18 Clonazepam [Klonopin] 0.5 mg PO Q12 08/31/18 Cyanocobalamin (Vitamin B-12) [Vitamin B-12 1000 mcg Tablet] 1,000 mcg PO NOON 08/31/18 Dexlansoprazole [Dexilant 60 mg Capsule] 60 mg PO QAM 08/31/18 Gabapentin [Neurontin] 1,200 mg PO Q8 08/31/18 Insulin Aspart [Novolog Flexpen] 8 units SQ MEALS 08/31/18 Insulin Glargine,Hum.rec.anlog [Lantus Insulin 100 Unit/mL Insulin Pen] 34 units SQ QHS 08/31/18 Liraglutide [Victoza 2-Adrien] 1.8 mg SQ DAILY 08/31/18 Lisinopril [Zestril] 5 mg PO QAM 08/31/18 Metoprolol Tartrate [Lopressor 25 mg Tablet] 12.5 mg PO Q12 08/31/18 Mv-Mn/Folic Acid/Calcium/Vit K [Women's 50 Plus Multivit Tab] 1 each PO NOON 08/31/18 Sucralfate [Carafate 1 gm Tablet] 1 gm PO BIDACLS 08/31/18 Suvorexant [Belsomra] 20 mg PO QHS 08/31/18 Tramadol HCl [Ultram 50 mg Tablet] 50 mg PO Q8HP PRN 08/31/18 Albuterol Sulfate [Albuterol Sulfate Hfa] 1 puff IH Q6HP PRN 02/14/19 Aripiprazole [Abilify 5 mg Tablet] 5 mg PO QHS 02/14/19 Docusate Sodium [Colace 100 mg Capsule] 100 mg PO TIDP PRN 02/14/19 Hydroxychloroquine Sulfate [Plaquenil 200 mg Tablet] 200 mg PO BID 02/14/19 Mycophenolate Mofetil [Cellcept 250 mg Capsule] 250 mg PO Q12 02/14/19 Oxycodone HCl/Acetaminophen [Oxycodon-Acetaminophen 7.5-325] 1 each PO Q6HP PRN 02/14/19 Venlafaxine HCl ER [Effexor Xr 37.5 mg Cap.sr] 37.5 mg PO QHS MDD 112.5 MG 02/14/19 Venlafaxine HCl ER [Effexor Xr 75 mg Cap.sr] 75 mg PO QHS MDD 112.5 MG 02/14/19 Warfarin Sodium [Coumadin 5 mg Tablet] 5 mg PO TUTHSA@219902/14/19 Warfarin Sodium [Coumadin 7.5 mg Tablet] 7.5 mg PO SUMOWEFR@219902/14/19 Clindamycin HCl [Cleocin 150 mg Capsule] 300 mg PO Q8 #42 capsule 02/17/19 History of Present Illness History of Present Illness: MIGUEL JONES is a 48 year old female with a complex past medical history of morbid obesity, lupus with antiphospholipid syndrome, multiple sclerosis, chronic pain, medication induced immunosuppression and diabetes. She presents with 9 days of right lower leg erythema and pain prompting her to seek evaluation in the emergency room 7 days ago she completed a course of Keflex without significant improvement. She is found to have +2 edema to the right low er leg, tachycardia, leukocytosis and pain she is ordered vancomycin, cefepime and referred to the hospitalist for admission. She admits previous history of multiple episodes of lower extremity cellulitis denying MRSA admitting 1 culture positive strep. Hospital Course Hospital Course: She received IV antibiotics for a couple of days was transitioned to clindamycin and continue to have a good response. She will finish up clindamycin as an outpatient. Apparently she had failed a course of Keflex initially. She was cautioned that if she started to have intractable diarrhea while taking clindamycin that she needs to seek medical attention. I recommended that she take a probiotic while she is on clindamycin for probably at least another week afterwards. Her comorbid conditions were managed with her home medications were not exacerbated during this hospitalization. Labs and examination were reassuring she was discharged in good condition. Physical Exam Vital Signs: Temp Pulse Resp BP Pulse Ox 98.6 F 96 18 113/62 100 02/17/19 12:19 02/17/19 12:19 02/17/19 12:19 02/17/19 12:19 02/17/19 12:19 Intake & Output 02/16/19 02/17/19 02/18/19 06:59 06:59 06:59 Intake Total 3280 421 1720 Balance 3280 421 1720 Weight 157.3 kg 154.2 kg General appearance: PRESENT: no acute distress, cooperative, disheveled, morbid ly obese Respiratory exam: PRESENT: clear to auscultation lorelei, symmetrical, unlabored. ABSENT: accessory muscle use, chest wall tenderness, crackles, prolonged expiratory phas, rhonchi, tachypnea, wheezes Cardiovascular exam: PRESENT: RRR, +S1, +S2 Pulses: PRESENT: normal carotid pulses Vascular exam: PRESENT: normal capillary refill GI/Abdominal exam: PRESENT: normal bowel sounds, soft. ABSENT: distended, guarding, rebound, tenderness Extremities exam: PRESENT: other - She had some trace erythema on her right lower extremity look to be fading. ABSENT: clubbing, pedal edema Musculoskeletal exam: PRESENT: normal inspection. ABSENT: deformity Neurological exam: PRESENT: alert, awake, oriented to person, oriented to place, oriented to time, oriented to situation Psychiatric exam: PRESENT: appropriate affect, normal mood Skin exam: PRESENT: dry, erythema - Trace erythema right lower extremity below the knee, warm Results Laboratory Results: 02/17/19 05:42 02/17/19 05:42 02/16/19 02/17/19 02/17/19 17:59 05:42 05:42 WBC 10.0 RBC 3.66 L Hgb 10.7 L Hct 31.9 L MCV 87 MCH 29.2 MCHC 33.4 RDW 16.0 H Plt Count 239 Seg Neutrophils % 68.4 Lymphocytes % 21.5 Monocytes % 7.2 Eosinophils % 2.2 Basophils % 0.7 Absolute Neutrophils 6.8 Absolute Lymphocytes 2.2 Absolute Monocytes 0.7 Absolute Eosinophils 0.2 Absolute Basophils 0.1 Sodium 139.0 Potassium 4.4 Chloride 100 Carbon Dioxide 30 Anion Gap 9 BUN 12 Creatinine 0.82 0.77 Est GFR ( Amer) > 60 > 60 Est GFR (Non-Af Amer) > 60 > 60 Glucose 219 H Calcium 9.0 Magnesium 1.9 Total Bilirubin 0.3 AST 23 ALT 40 Alkaline Phosphatase 95 Total Protein 6.3 Albumin 3.6 Impressions: Extremity Ultrasound 02/14/19 00:00 IMPRESSION: No abscess. Qualifiers - * PATIENT BEING DISCHARGED WITH ANY OF THE FOLLOWING DIAGNOSIS: No Acute Heart Failure - Is this a Heart Failure Patient?: No Plan Time Spent: Greater than 30 Minutes
== END 2019-02-17 12:50 | disposition home or self-care (01) | DRG 603 ==
LOC: ER 15:31 → EH 02-14 01:06 → 4N 02-14 03:30
PROVIDERS: ADMIT Internal Medicine; ATTEND Internal Medicine
DX: L03.115 Cellulitis of right lower limb (principal); D68.61 Antiphospholipid syndrome; Z68.44 Body mass index [BMI] 60.0-69.9, adult; E11.9 Type 2 diabetes mellitus without complications; E66.01 Morbid (severe) obesity due to excess calories; M32.9 Systemic lupus erythematosus, unspecified; G35 Multiple sclerosis; R00.0 Tachycardia, unspecified; D72.829 Elevated white blood cell count, unspecified; E78.5 Hyperlipidemia, unspecified; F41.9 Anxiety disorder, unspecified; F32.9 Major depressive disorder, single episode, unspecified; I87.2 Venous insufficiency (chronic) (peripheral); G89.4 Chronic pain syndrome; M79.7 Fibromyalgia; Z79.4 Long term (current) use of insulin; Z79.899 Other long term (current) drug therapy; Z79.51 Long term (current) use of inhaled steroids; Z79.01 Long term (current) use of anticoagulants; M19.90 Unspecified osteoarthritis, unspecified site; D64.9 Anemia, unspecified; I10 Essential (primary) hypertension; K21.9 Gastro-esophageal reflux disease without esophagitis; Z88.0 Allergy status to penicillin; Z88.1 Allergy status to other antibiotic agents; Z91.040 Latex allergy status; Z92.25 Personal history of immunosuppression therapy; Z90.49 Acquired absence of other specified parts of digestive tract; Z88.3 Allergy status to other anti-infective agents; Z91.030 Bee allergy status
CPT/HCPCS: 36415; 76881; 80048; 80053; 80202; 82565; 82607; 82728; 82746; 82803; 82962; 83540; 83550; 83605; 83735; 84443; 85025; 85045; 85610; 85652; 87040; 94640; 96372; 96374; 99284; J0696; J1815; J1885; J2270; J3370; J3490; J7030; J7060; J7120; J7517; J7620

== ENCOUNTER 2019-06-22 13:34 | Emergency (ER) | payer MEDICARE, OTHER ==
--- NOTE | 2019-06-22 14:19 | ER Document Report ---
ED Medical Screen (RME) - General Chief Complaint: Fall Stated Complaint: FALL Time Seen by Provider: 06/22/19 14:14 Primary Care Provider: JARON LYON MD [Primary Care Provider] - Follow up as needed Mode of Arrival: Wheelchair Notes: 49-year-old female presented to ED for complaint of falling 2 days ago. She did a home INR today and was 7.7 so as she has been instructed she came to the emergency room for follow-up. We will get blood work and an x-ray. They have been ordered. Patient states she is having pain across the left and right back. Patient is alert oriented respirations regular and unlabored speaking in full sentences. [employer] TRAVEL OUTSIDE OF THE [place] IN LAST 30 DAYS: No - Related Data Allergies/Adverse Reactions: adhesive [Adhesive] Allergy (Severe, Verified 02/13/19 17:21) Blisters latex [Latex] Allergy (Severe, Verified 02/13/19 17:21) Hives polyethylene glycol 3350 [From Miralax] Allergy (Severe, Verified 02/13/19 17:21) na and v rash povidone-iodine [From Betadine] Allergy (Severe, Verified 02/13/19 17:21) Blisters Soap [From Betadine] Allergy (Severe, Verified 02/13/19 17:21) Blisters Penicillins Allergy (Mild, Verified 02/13/19 17:21) Hives ciprofloxacin Allergy (Verified 02/13/19 17:21) levofloxacin [From Levaquin] Allergy (Verified 02/13/19 17:21) bee sting Allergy (Severe, Uncoded 02/13/19 17:21) Anaphylaxis hurricane spray Allergy (Severe, Uncoded 02/13/19 17:21) Shortness of Breath Past Medical History - Past Medical History Cardiac Medical History: Reports: Hx Hypercholesterolemia, Hx Hypertension Denies: Hx Coronary Artery Disease, Hx Heart Attack Pulmonary Medical History: Reports: Hx Pneumonia - hx of in past Denies: Hx Asthma, Hx Bronchitis, Hx COPD Neurological Medical History: Reports: Hx Cerebrovascular Accident - 2014, Hx Migraine, Hx Seizures - x1, poss seizure/stroke second time Endocrine Medical History: Reports: Hx Diabetes Mellitus Type 2 Renal/ Medical History: Denies: Hx Peritoneal Dialysis GI Medical History: Reports: Hx Gastroesophageal Reflux Disease Musculoskeltal Medical History: Reports Hx Arthritis - osteoarthritis, Reports Hx Fibromyalgia, Reports Hx Multiple Sclerosis Psychiatric Medical History: Reports: Hx Depression Past Surgical History: Reports: Hx Appendectomy, Hx Section - 2, Hx Cholecystectomy, Hx Gynecologic Surgery. Denies: Hx Hysterectomy - Immunizations Immunizations up to date: Yes Hx Diphtheria, Pertussis, Tetanus Vaccination: Yes Physical Exam - Vital signs Vitals: Temp Pulse Resp BP Pulse Ox 98.7 F 101 H 18 144/70 H 98 06/22/19 13:39 06/22/19 13:39 06/22/19 13:39 06/22/19 13:39 06/22/19 13:39 Course - Vital Signs Vital signs: Temp Pulse Resp BP Pulse Ox 98.7 F 101 H 18 144/70 H 98 06/22/19 13:39 06/22/19 13:39 06/22/19 13:39 06/22/19 13:39 06/22/19 13:39 Doctor's Discharge - Discharge Referrals: JARON LYON MD [Primary Care Provider] - Follow up as needed
[2019-06-22 15:04] LABS: ABSOLUTE BASOPHILS # (AUTO) 0.1 10^3/uL (0.0-0.2); ABSOLUTE EOSINOPHILS # (AUTO) 0.2 10^3/uL (0.0-0.6); ABSOLUTE MONOCYTES (AUTO) 0.7 10^3/uL (0.1-1.4); ABSOLUTE NEUT (AUTO) 7.5 10^3/uL (1.7-8.2); EOSINOPHILS % (AUTO) 1.6 % (0-6); HEMATOCRIT 40.7 % (36.0-47.0); HEMOGLOBIN 13.3 g/dL (12.0-15.5); LYMPHOCYTES % (AUTO) 26.3 % (13-45); MEAN CORPUSCULAR HEMOGLOBIN 27.1 pg (27.0-33.4); MEAN CORPUSCULAR HGB CONC 32.6 g/dL (32.0-36.0); MEAN CORPUSCULAR VOLUME 83 fl (80-97); MONOCYTES % (AUTO) 6.3 % (3-13); PLATELET COUNT 219 10^3/uL (150-450); RED BLOOD COUNT 4.91 10^6/uL (3.72-5.28); RED CELL DISTRIBUTION WIDTH 18.5 % (11.5-14.0); SEGMENTED NEUTROPHILS % (AUTO) 64.8 % (42-78); TOTAL CELLS COUNTED % (AUTO) 100 %; WHITE BLOOD COUNT 11.5 10^3/uL (4.0-10.5)
[2019-06-22 15:08] LABS: APPEARANCE,URINE CLOUDY; BILIRUBIN,URINE NEGATIVE (NEGATIVE); COLOR,URINE YELLOW; GLUCOSE, URINE NEGATIVE (NEGATIVE); KETONES,URINE NEGATIVE (NEGATIVE); LEUKOCYTE ESTERASE,URINE LARGE (NEGATIVE); NITRITE,URINE NEGATIVE (NEGATIVE); PROTEIN,URINE NEGATIVE (NEGATIVE); URINE SPECIFIC GRAVITY 1.016; UROBILINOGEN,URINE NEGATIVE mg/dL (<2.0)
--- NOTE | 2019-06-22 15:09 | RADIOLOGY REPORT (SQ) ---
EXAM DESCRIPTION: CHEST 2 VIEWS COMPLETED DATE/TIME: 06/22/2019 2:57 pm REASON FOR STUDY: fell landed on left ribs COMPARISON: Fall, pain EXAM PARAMETERS: NUMBER OF VIEWS: two views TECHNIQUE: Digital Frontal and Lateral radiographic views of the chest acquired. RADIATION DOSE: NA LIMITATIONS: none FINDINGS: LUNGS AND PLEURA: No opacities, masses or pneumothorax. No pleural effusion. MEDIASTINUM AND HILAR STRUCTURES: No masses or contour abnormalities. HEART AND VASCULAR STRUCTURES: Heart normal size. No evidence for failure. BONES: No acute findings. HARDWARE: None in the chest. OTHER: No other significant finding. IMPRESSION: No acute abnormality of the lungs. No obvious displaced fracture or pneumothorax. TECHNICAL DOCUMENTATION: JOB ID: [id number] [employer]- All Rights Reserved Reading location - IP/workstation name: [email or web address]
[2019-06-22 15:32] LABS: ALBUMIN 4.4 g/dL (3.5-5.0); ALKALINE PHOSPHATASE 90 U/L (38-126); ANION GAP 14 (5-19); ASPARTATE AMINO TRANSFERASE 30 U/L (14-36); BILIRUBIN,DIRECT 0.1 mg/dL (0.0-0.4); BILIRUBIN,TOTAL 0.3 mg/dL (0.2-1.3); BLOOD UREA NITROGEN 17 mg/dL (7-20); CALCIUM 9.6 mg/dL (8.4-10.2); CARBON DIOXIDE 29 mmol/L (22-30); CHLORIDE 96 mmol/L (98-107); GLUCOSE 181 mg/dL (75-110); POTASSIUM 3.9 mmol/L (3.6-5.0); TOTAL PROTEIN 7.8 g/dL (6.3-8.2)
[2019-06-22] MEDS ORDERED: CEFTRIAXONE 1 GM/D5W RTU 1 GM/50 ML RTUPB IV ONE (15:56)
[2019-06-22] MEDS ORDERED: OXYCODONE-ACETAMINOPHEN 5-325 MG TABLET PO ONE (15:57)
--- NOTE | 2019-06-22 15:59 | ER Document Report ---
ED General - General Chief Complaint: Abnormal Lab Results Stated Complaint: FALL Time Seen by Provider: 06/22/19 14:14 Primary Care Provider: JARON LYON MD [Primary Care Provider] - Follow up tomorrow Mode of Arrival: Wheelchair Information source: Patient Notes: Patient states that she monitors her INR at home. Patient states that she checked her INR and it was 7.7 today. Patient denies any abnormal bleeding. Patient does report that 2 days ago she got up late at night to go the bathroom got dizzy and fell into a window. Patient developed a bruise to the right thoracic back area. Bruise has not increased in size. Patient came in today because of the elevated INR. Patient takes warfarin 7.5 mg on Wednesday and 5 mg on Wednesday. TRAVEL OUTSIDE OF THE [place] IN LAST 30 DAYS: No - HPI Onset/Duration: Gradual Pain Level: 2 Associated symptoms: Other - Right-sided back pain. denies: Chest pain, Nonproductive cough, Productive cough, Nausea, Vomiting Exacerbated by: Movement Relieved by: Denies Similar symptoms previously: No Recently seen / treated by doctor: No - Related Data Allergies/Adverse Reactions: adhesive [Adhesive] Allergy (Severe, Verified 02/13/19 17:21) Blisters latex [Latex] Allergy (Severe, Verified 02/13/19 17:21) Hives polyethylene glycol 3350 [From Miralax] Allergy (Severe, Verified 02/13/19 17:21) na and v rash povidone-iodine [From Betadine] Allergy (Severe, Verified 02/13/19 17:21) Blisters Soap [From Betadine] Allergy (Severe, Verified 02/13/19 17:21) Blisters Penicillins Allergy (Mild, Verified 02/13/19 17:21) Hives ciprofloxacin Allergy (Verified 02/13/19 17:21) levofloxacin [From Levaquin] Allergy (Verified 02/13/19 17:21) bee sting Allergy (Severe, Uncoded 02/13/19 17:21) Anaphylaxis hurricane spray Allergy (Severe, Uncoded 02/13/19 17:21) Shortness of Breath Past Medical History - General Information source: Patient - Social History Smoking Status: Never Smoker Chew tobacco use (# tins/day): No Frequency of alcohol use: None Drug Abuse: None Occupation: none Lives with: Family Family History: Hypertension Patient has suicidal ideation: No Patient has homicidal ideation: No - Medical History Medical History: Other - Antiphospholipid antibody, lupus, MS - Past Medical History Cardiac Medical History: Reports: Hx Hypercholesterolemia, Hx Hypertension Pulmonary Medical History: Reports: Hx Pneumonia - hx of in past Neurological Medical History: Reports: Hx Cerebrovascular Accident - 2014, Hx Migraine, Hx Seizures - x1, poss seizure/stroke second time Endocrine Medical History: Reports: Hx Diabetes Mellitus Type 2 Renal/ Medical History: Denies: Hx Peritoneal Dialysis GI Medical History: Reports: Hx Gastroesophageal Reflux Disease Musculoskeletal Medical History: Reports Hx Arthritis - osteoarthritis, Reports Hx Fibromyalgia, Reports Hx Multiple Sclerosis Psychiatric Medical History: Reports: Hx Depression Past Surgical History: Reports: Hx Appendectomy, Hx Section - 2, Hx Cholecystectomy, Hx Gynecologic Surgery. Denies: Hx Hysterectomy - Immunizations Immunizations up to date: Yes Hx Diphtheria, Pertussis, Tetanus Vaccination: Yes Review of Systems - Review of Systems Constitutional: Recent illness - uti 3 wk ago. denies: Fever EENT: No symptoms reported Cardiovascular: Dizziness - 2 days ago. denies: Chest pain Respiratory: No symptoms reported. denies: Cough, Short of breath Gastrointestinal: No symptoms reported. denies: Abdominal pain, Nausea, Vomiting Genitourinary: No symptoms reported Female Genitourinary: No symptoms reported Musculoskeletal: Back pain - right lower thoracic back pain Skin: No symptoms reported Hematologic/Lymphatic: denies: Easy bleeding Neurological/Psychological: No symptoms reported. denies: Headaches Physical Exam - Vital signs Vitals: Temp Pulse Resp BP Pulse Ox 98.7 F 101 H 18 144/70 H 98 06/22/19 13:39 06/22/19 13:39 06/22/19 13:39 06/22/19 13:39 06/22/19 13:39 - General General appearance: Appears well, Alert In distress: None - HEENT Head: Normocephalic, Atraumatic Eyes: Normal Conjunctiva: Normal Nasal: Normal Mouth/Lips: Normal Neck: Normal, Supple. No: Lymphadenopathy - Respiratory Respiratory status: No respiratory distress Chest status: Nontender Breath sounds: Normal Chest palpation: Normal. No: Subcutaneous emphysema - Cardiovascular Rhythm: Regular Heart sounds: S1 appreciated, S2 appreciated Murmur: No - Abdominal Inspection: Morbidly Obese Distension: No distension Bowel sounds: Normal Tenderness: Nontender Organomegaly: No organomegaly - Back Back: Tender - Right lower thoracic paraspinal tenderness with overlying area of ecchymosis. No: CVA tenderness, Vertebra tenderness - Extremities General upper extremity: Normal inspection, Normal ROM General lower extremity: Normal inspection, Normal ROM - Neurological Neuro grossly intact: Yes Cognition: Normal [place] Coma Scale Eye Opening: Spontaneous [place] Coma Scale Verbal: Oriented [place] Coma Scale Motor: Obeys Commands [place] Coma Scale Total: 15 - Psychological Associated symptoms: Normal affect, Normal mood - Skin Skin Temperature: Warm Skin Moisture: Dry Skin Color: Normal Course - Re-evaluation Re-evalutation: 06/22/19 18:00 Consulted with hospitalist Brian Valencia regarding patient presentation and concern about supra therapeutic INR. Recommends giving a 2.5 mg dose of vitamin K and holding a dose or 2 of her Coumadin. 06/22/19 18:[address] Singh who agrees with discharge plan of care at this time as patient does not have any active bleeding. Patient also with incidental UTI although no concern for sepsis at this time. Patient nontoxic in appearance. Culture will be obtained. Patient advised of elevated INR and importance of calling her doctor first thing tomorrow to discuss when she should resume her Coumadin. Discussed with patient the plan to place her on Macrobid given her numerous drug allergies as well as her supratherapeutic INR. 06/22/19 18:52 - Vital Signs Vital signs: Temp Pulse Resp BP Pulse Ox 97.9 F 98 18 122/71 96 06/22/19 18:17 06/22/19 18:17 06/22/19 13:39 06/22/19 18:17 06/22/19 18:17 - Laboratory Result Diagrams: 06/22/19 14:35 06/22/19 14:35 Laboratory results interpreted by me: 06/22/19 06/22/19 06/22/19 14:35 14:35 14:35 WBC 11.5 H RDW 18.5 H PT INR APTT Chloride 96 L Glucose 181 H Urine Blood MODERATE H Ur Leukocyte Esterase LARGE H 06/22/19 17:09 WBC RDW PT 60.6 H* INR 6.72 H* APTT 129.3 H Chloride Glucose Urine Blood Ur Leukocyte Esterase 06/22/19 18:49 Labs- Entire Visit 06/22/19 06/22/19 06/22/19 14:35 14:35 14:35 WBC 11.5 H RBC 4.91 Hgb 13.3 Hct 40.7 MCV 83 MCH 27.1 MCHC 32.6 RDW 18.5 H Plt Count 219 Lymph % (Auto) 26.3 Early % (Auto) 6.3 Eos % (Auto) 1.6 Baso % (Auto) 1.0 Absolute Neuts (auto) 7.5 Absolute Lymphs (auto) 3.0 Absolute Monos (auto) 0.7 Absolute Eos (auto) 0.2 Absolute Basos (auto) 0.1 Seg Neutrophils % 64.8 PT INR INR (Anticoag Therapy) APTT Sodium 138.6 Potassium 3.9 Chloride 96 L Carbon Dioxide 29 Anion Gap 14 BUN 17 Creatinine 0.71 Est GFR ( Amer) > 60 Est GFR (MDRD) Non-Af > 60 Glucose 181 H Calcium 9.6 Total Bilirubin 0.3 Direct Bilirubin 0.1 Neonat Total Bilirubin Not Reportable Neonat Direct Bilirubin Not Reportable Neonat Indirect Bili Not Reportable AST 30 ALT 26 Alkaline Phosphatase 90 Troponin I < 0.012 Total Protein 7.8 Albumin 4.4 Urine Color Urine Appearance Urine pH Ur Specific [place] Urine Protein Urine Glucose (UA) Urine Ketones Urine Blood Urine Nitrite Urine Bilirubin Urine Urobilinogen Ur Leukocyte Esterase Urine WBC (Auto) Urine RBC (Auto) Urine Bacteria (Auto) Urine WBC Clumps Squamous Epi Cells Auto Urine Mucus (Auto) Urine Ascorbic Acid 06/22/19 06/22/19 06/22/19 14:35 14:35 15:44 WBC RBC Hgb Hct MCV MCH MCHC RDW Plt Count Lymph % (Auto) Early % (Auto) Eos % (Auto) Baso % (Auto) Absolute Neuts (auto) Absolute Lymphs (auto) Absolute Monos (auto) Absolute Eos (auto) Absolute Basos (auto) Seg Neutrophils % PT Cancelled Cancelled INR Cancelled Cancelled INR (Anticoag Therapy) Cancelled Cancelled APTT Cancelled Cancelled Sodium Potassium Chloride Carbon Dioxide Anion Gap BUN Creatinine Est GFR ( Amer) Est GFR (MDRD) Non-Af Glucose Calcium Total Bilirubin Direct Bilirubin Neonat Total Bilirubin Neonat Direct Bilirubin Neonat Indirect Bili AST ALT Alkaline Phosphatase Troponin I Total Protein Albumin Urine Color YELLOW Urine Appearance CLOUDY Urine pH 5.0 Ur Specific [place] 1.016 Urine Protein NEGATIVE Urine Glucose (UA) NEGATIVE Urine Ketones NEGATIVE Urine Blood MODERATE H Urine Nitrite NEGATIVE Urine Bilirubin NEGATIVE Urine Urobilinogen NEGATIVE Ur Leukocyte Esterase LARGE H Urine WBC (Auto) >182 Urine RBC (Auto) 18 Urine Bacteria (Auto) 2+ Urine WBC Clumps MANY Squamous Epi Cells Auto 2 Urine Mucus (Auto) RARE Urine Ascorbic Acid NEGATIVE 06/22/19 17:09 WBC RBC Hgb Hct MCV MCH MCHC RDW Plt Count Lymph % (Auto) Early % (Auto) Eos % (Auto) Baso % (Auto) Absolute Neuts (auto) Absolute Lymphs (auto) Absolute Monos (auto) Absolute Eos (auto) Absolute Basos (auto) Seg Neutrophils % PT 60.6 H* INR 6.72 H* INR (Anticoag Therapy) APTT 129.3 H Sodium Potassium Chloride Carbon Dioxide Anion Gap BUN Creatinine Est GFR ( Amer) Est GFR (MDRD) Non-Af Glucose Calcium Total Bilirubin Direct Bilirubin Neonat Total Bilirubin Neonat Direct Bilirubin Neonat Indirect Bili AST ALT Alkaline Phosphatase Troponin I Total Protein Albumin Urine Color Urine Appearance Urine pH Ur Specific [place] Urine Protein Urine Glucose (UA) Urine Ketones Urine Blood Urine Nitrite Urine Bilirubin Urine Urobilinogen Ur Leukocyte Esterase Urine WBC (Auto) Urine RBC (Auto) Urine Bacteria (Auto) Urine WBC Clumps Squamous Epi Cells Auto Urine Mucus (Auto) Urine Ascorbic Acid - Diagnostic Test Radiology reviewed: Image reviewed, Reports reviewed Discharge - Discharge Clinical Impression: Supratherapeutic INR, Rib injury UTI (urinary tract infection) Qualifiers: Urinary tract infection type: site unspecified Hematuria presence: with hematuria Qualified Code(s): N39.0 - Urinary tract infection, site not specified Condition: Stable Disposition: HOME, SELF-CARE Instructions: Nitrofurantoin ([facility]), Rocephin ([facility]), Urinary Tract Infection ([facility]) Additional Instructions: Return immediately for any new or worsening symptoms Followup with your primary care provider, call tomorrow to make a followup appointment Hold your evening dose tonight of Coumadin. Contact your primary doctor first thing in the morning and advise them of your visit here tonight. Let them know that you were given a 2.5 mg dose of vitamin K. Your INR tonight was 6.72 Return immediately for any abnormal bleeding or worsening of the bruise to your back area. Urine culture is pending at this time. We will call you if you need any different antibiotics. Prescriptions: Nitrofurantoin/Nitrofuran Mac [Macrobid 100 mg Capsule] 100 mg PO BID #14 capsule Referrals: JARON LYON MD [Primary Care Provider] - Follow up tomorrow
[2019-06-22] MEDS ORDERED: LIDOCAINE 1% INJ (10 MG/ML) 10 ML MDV INJ ONE (16:02)
[2019-06-22] MEDS ORDERED: CEFTRIAXONE INJ 1000 MG VIAL IM ONE (16:02)
[2019-06-22 17:28] LABS: PARTIAL THROMBOPLASTIN TIME 129.3 SEC (23.5-35.8)
[2019-06-22 17:40] LABS: INTERNATIONAL RATION (INR) 6.72; PROTHROMBIN TIME 60.6 SEC (11.4-15.4)
[2019-06-22] MEDS ORDERED: PHYTONADIONE 5 MG TABLET PO ONE (17:59)
[2019-06-22] MEDS ORDERED: NITROFURANTOIN MONOHYD/M-CRYST 100 MG CAPSULE PO ONE (18:41)
[2019-06-22 19:11] VITALS: BP 122/71
== END 2019-06-22 18:52 | disposition home or self-care (01) ==
LOC: ER 13:34
DX: S20.221A Contusion of right back wall of thorax, initial encounter (principal); M54.6 Pain in thoracic spine; W19.XXXA Unspecified fall, initial encounter; Y93.89 Activity, other specified; Y92.009 Unspecified place in unspecified non-institutional (private) residence as the place of occurrence of the external cause; Z79.01 Long term (current) use of anticoagulants; N39.0 Urinary tract infection, site not specified; R31.9 Hematuria, unspecified; I10 Essential (primary) hypertension; E11.9 Type 2 diabetes mellitus without complications; Z86.73 Personal history of transient ischemic attack (TIA), and cerebral infarction without residual deficits; Z91.048 Other nonmedicinal substance allergy status; Z91.040 Latex allergy status; Z88.8 Allergy status to other drugs, medicaments and biological substances; Z88.3 Allergy status to other anti-infective agents; Z88.0 Allergy status to penicillin; Z88.1 Allergy status to other antibiotic agents; Z91.030 Bee allergy status; Z87.892 Personal history of anaphylaxis
CPT/HCPCS: 36415; 85025; 85610; 85730; 80053; 81001; 84484; 71046; A9270 ×3; J0696; 87086; 87088; J3490; J8499

== ENCOUNTER 2019-07-12 14:17 | Emergency (ER) | payer MEDICARE, OTHER ==
--- NOTE | 2019-07-12 14:33 | ER Document Report ---
ED Medical Screen (RME) - General Chief Complaint: Psych Problem Stated Complaint: PSYCH/DEPRESSION Time Seen by Provider: 07/12/19 14:28 Primary Care Provider: JARON LYON MD [Primary Care Provider] - Follow up as needed Mode of Arrival: Ambulatory Information source: Patient Notes: 49-year-old female presented to ED for complaint of thoughts of suicide. She states she just started a new medication for her multiple sclerosis and it is made her so depressed and upset that she wants to . She states she feels like she wants to kill herself. She states she called her doctor he took her off the medications and told her to come to the emergency room immediately. She states that the doctor told her it takes 24 hours for the medicine to get out of her system she took her last medication this morning. She states she does not smoke use street drugs or drink. She states she does have chronic pain and she did not take her chronic pain management medicine today because she was afraid to. I have greeted and performed a rapid initial assessment of this patient. A comprehensive ED assessment and evaluation of the patient, analysis of test results and completion of medical decision making process will be conducted by an additional ED providers. TRAVEL OUTSIDE OF THE [place] IN LAST 30 DAYS: No - Related Data Allergies/Adverse Reactions: adhesive [Adhesive] Allergy (Severe, Verified 07/12/19 14:28) Blisters latex [Latex] Allergy (Severe, Verified 07/12/19 14:28) Hives polyethylene glycol 3350 [From Miralax] Allergy (Severe, Verified 07/12/19 14:28) na and v rash povidone-iodine [From Betadine] Allergy (Severe, Verified 07/12/19 14:28) Blisters Soap [From Betadine] Allergy (Severe, Verified 07/12/19 14:28) Blisters Penicillins Allergy (Mild, Verified 07/12/19 14:28) Hives ciprofloxacin Allergy (Verified 07/12/19 14:28) levofloxacin [From Levaquin] Allergy (Verified 07/12/19 14:28) bee sting Allergy (Severe, Uncoded 07/12/19 14:28) Anaphylaxis hurricane spray Allergy (Severe, Uncoded 07/12/19 14:28) Shortness of Breath Past Medical History - Past Medical History Cardiac Medical History: Reports: Hx Hypercholesterolemia, Hx Hypertension Denies: Hx Coronary Artery Disease, Hx Heart Attack Pulmonary Medical History: Reports: Hx Pneumonia - hx of in past Denies: Hx Asthma, Hx Bronchitis, Hx COPD Neurological Medical History: Reports: Hx Cerebrovascular Accident - 2014, Hx Migraine, Hx Seizures - x1, poss seizure/stroke second time Endocrine Medical History: Reports: Hx Diabetes Mellitus Type 2 Renal/ Medical History: Denies: Hx Peritoneal Dialysis GI Medical History: Reports: Hx Gastroesophageal Reflux Disease Musculoskeltal Medical History: Reports Hx Arthritis - osteoarthritis, Reports Hx Fibromyalgia, Reports Hx Multiple Sclerosis Psychiatric Medical History: Reports: Hx Depression Past Surgical History: Reports: Hx Appendectomy, Hx Section - 2, Hx Cholecystectomy, Hx Gynecologic Surgery. Denies: Hx Hysterectomy - Immunizations Immunizations up to date: Yes Hx Diphtheria, Pertussis, Tetanus Vaccination: Yes Physical Exam - Vital signs Vitals: Temp Pulse Resp BP Pulse Ox 97.5 F 105 H 16 142/92 H 94 07/12/19 14:22 07/12/19 14:22 07/12/19 14:22 07/12/19 14:22 07/12/19 14:22 Course - Vital Signs Vital signs: Temp Pulse Resp BP Pulse Ox 97.5 F 105 H 16 142/92 H 94 07/12/19 14:22 07/12/19 14:22 07/12/19 14:22 07/12/19 14:22 07/12/19 14:22 Doctor's Discharge - Discharge Referrals: JARON LYON MD [Primary Care Provider] - Follow up as needed
[2019-07-12 15:52] LABS: ABSOLUTE EOSINOPHILS # (AUTO) 0.1 10^3/uL (0.0-0.6); ABSOLUTE LYMPHOCYTES (AUTO) 3.1 10^3/uL (0.5-4.7); ABSOLUTE MONOCYTES (AUTO) 0.6 10^3/uL (0.1-1.4); ABSOLUTE NEUT (AUTO) 6.1 10^3/uL (1.7-8.2); BASOPHILS % (AUTO) 0.5 % (0-2); EOSINOPHILS % (AUTO) 1.3 % (0-6); HEMATOCRIT 39.5 % (36.0-47.0); HEMOGLOBIN 13.1 g/dL (12.0-15.5); LYMPHOCYTES % (AUTO) 30.8 % (13-45); MEAN CORPUSCULAR HEMOGLOBIN 28.3 pg (27.0-33.4); MEAN CORPUSCULAR HGB CONC 33.2 g/dL (32.0-36.0); MEAN CORPUSCULAR VOLUME 85 fl (80-97); MONOCYTES % (AUTO) 6.2 % (3-13); PLATELET COUNT 261 10^3/uL (150-450); RED BLOOD COUNT 4.63 10^6/uL (3.72-5.28); RED CELL DISTRIBUTION WIDTH 18.1 % (11.5-14.0); SEGMENTED NEUTROPHILS % (AUTO) 61.2 % (42-78); TOTAL CELLS COUNTED % (AUTO) 100 %
[2019-07-12 16:01] LABS: APPEARANCE,URINE CLEAR; BILIRUBIN,URINE NEGATIVE (NEGATIVE); COLOR,URINE STRAW; GLUCOSE, URINE 50 mg/dL (NEGATIVE); KETONES,URINE NEGATIVE (NEGATIVE); LEUKOCYTE ESTERASE,URINE NEGATIVE (NEGATIVE); NITRITE,URINE NEGATIVE (NEGATIVE); PROTEIN,URINE NEGATIVE (NEGATIVE); URINE SPECIFIC GRAVITY 1.005; UROBILINOGEN,URINE NEGATIVE mg/dL (<2.0)
[2019-07-12 16:17] LABS: URINE AMPHETAMINES SCREEN NEGATIVE; URINE BARBITURATES SCREEN NEGATIVE; URINE BENZODIAZEPINES SCREEN NEGATIVE; URINE COCAINE SCREEN NEGATIVE; URINE MARIJUANA (THC) SCREEN NEGATIVE; URINE METHADONE SCREEN NEGATIVE; URINE PHENCYCLIDINE SCREEN NEGATIVE
[2019-07-12 16:30] LABS: ALBUMIN 4.1 g/dL (3.5-5.0); ALKALINE PHOSPHATASE 95 U/L (38-126); ANION GAP 13 (5-19); ASPARTATE AMINO TRANSFERASE 24 U/L (14-36); BILIRUBIN,DIRECT 0.2 mg/dL (0.0-0.4); BILIRUBIN,TOTAL 0.3 mg/dL (0.2-1.3); BLOOD UREA NITROGEN 11 mg/dL (7-20); CALCIUM 9.7 mg/dL (8.4-10.2); CARBON DIOXIDE 26 mmol/L (22-30); CHLORIDE 100 mmol/L (98-107); GLUCOSE 254 mg/dL (75-110); POTASSIUM 4.8 mmol/L (3.6-5.0)
[2019-07-12 16:31] LABS: ACETAMINOPHEN < 10 ug/mL (10-30); ALCOHOL < 10 mg/dL (NONE DETECTED); SALICYLATE < 1.0 mg/dL (2.0-20.0)
--- NOTE | 2019-07-12 16:50 | ER Document Report ---
ED General <DINA GERMAIN - Last Filed: 07/13/19 09:24> - General Mode of Arrival: Ambulatory Information source: Patient TRAVEL OUTSIDE OF THE [place] IN LAST 30 DAYS: No - HPI Onset: This morning Onset/Duration: Sudden Quality of pain: No pain Associated symptoms: None Exacerbated by: Denies Relieved by: Denies Similar symptoms previously: No Recently seen / treated by doctor: No - Related Data Home Medications: gabapentin, abagio, percocet <MALIK DEUTSCHRICIA - Last Filed: 07/13/19 19:55> - General Chief Complaint: Suicidal Ideation Stated Complaint: PSYCH/DEPRESSION Time Seen by Provider: 07/12/19 14:28 Primary Care Provider: [facility] [Outside] - Follow up as needed JARON LYON MD [Primary Care Provider] - Follow up as needed Notes: This 49-year-old female presents emergency department with reports that she took a new medication this morning, aubagio, for multiple sclerosis and reports she started having suicidal ideations. She reports right after she started taking that she curled up on the couch and just did not feel like she wanted to go on, she didn't want to wake up. Her at her bedside reports this is just not like her. Patient has a long history of medical issues to include anixety, multiple sclerosis migraine fibromyalgia pyelonephritis diabetes seizures lupus. Patient reports that she read online that she should not take that medication as she has diabetes and she is worried that her neurologist did not know this. Patient denies other symptoms such as fever vomiting diarrhea. Patient denies past medical history of suicide ideations. Patient's is at her bedside reports that we do not carry some of the medication she takes and he needs to go home to bring back to her. (DARREN DEUTSCH) - Related Data Allergies/Adverse Reactions: adhesive [Adhesive] Allergy (Severe, Verified 07/12/19 14:28) Blisters latex [Latex] Allergy (Severe, Verified 07/12/19 14:28) Hives polyethylene glycol 3350 [From Miralax] Allergy (Severe, Verified 07/12/19 14:28) na and v rash povidone-iodine [From Betadine] Allergy (Severe, Verified 07/12/19 14:28) Blisters Soap [From Betadine] Allergy (Severe, Verified 07/12/19 14:28) Blisters Penicillins Allergy (Mild, Verified 07/12/19 14:28) Hives ciprofloxacin Allergy (Verified 07/12/19 14:28) levofloxacin [From Levaquin] Allergy (Verified 07/12/19 14:28) teriflunomide [From Aubagio] Adverse Reaction (Severe, Verified 07/13/19 10:06) suicidal, depression bee sting Allergy (Severe, Uncoded 07/12/19 14:28) Anaphylaxis hurricane spray Allergy (Severe, Uncoded 07/12/19 14:28) Shortness of Breath Past Medical History - General Information source: Patient - Social History Smoking Status: Former Smoker Cigarette use (# per day): No Chew tobacco use (# tins/day): No Frequency of alcohol use: None Drug Abuse: None 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 Lives with: Family Family History: Hypertension Patient has suicidal ideation: Yes Patient has homicidal ideation: No - Past Medical History Cardiac Medical History: Reports: Hx Hypercholesterolemia, Hx Hypertension Denies: Hx Coronary Artery Disease, Hx Heart Attack Pulmonary Medical History: Reports: Hx Pneumonia - hx of in past Denies: Hx Asthma, Hx Bronchitis, Hx COPD Neurological Medical History: Reports: Hx Cerebrovascular Accident - 2014, Hx Migraine, Hx Seizures - x1, poss seizure/stroke second time Endocrine Medical History: Reports: Hx Diabetes Mellitus Type 2 Renal/ Medical History: Denies: Hx Peritoneal Dialysis GI Medical History: Reports: Hx Gastroesophageal Reflux Disease Musculoskeletal Medical History: Reports Hx Arthritis - osteoarthritis, Reports Hx Fibromyalgia, Reports Hx Multiple Sclerosis Psychiatric Medical History: Reports: Hx Depression Past Surgical History: Reports: Hx Appendectomy, Hx Section - 2, Hx Cholecystectomy, Hx Gynecologic Surgery. Denies: Hx Hysterectomy - Immunizations Immunizations up to date: Yes Hx Diphtheria, Pertussis, Tetanus Vaccination: Yes <DARREN DEUTSCH - Last Filed: 07/13/19 19:55> Review of Systems <DARREN DEUTSCH - Last Filed: 07/13/19 19:55> - Review of Systems Notes: Review HPI for review of systems., All other systems negative (DARREN DEUTSCH) Physical Exam - General General appearance: Appears well, Alert, Anxious In distress: None - HEENT Head: Normocephalic Eyes: Normal Conjunctiva: Normal Mucous membranes: Normal, Moist Neck: Normal, Supple - Respiratory Respiratory status: No respiratory distress Breath sounds: Normal - Cardiovascular Rhythm: Regular Heart sounds: Normal auscultation - Abdominal Inspection: Normal Distension: No distension Bowel sounds: Normal Tenderness: Nontender Organomegaly: No organomegaly - Extremities General upper extremity: Normal ROM General lower extremity: Normal ROM - Neurological Neuro grossly intact: Yes Cognition: Normal Orientation: AAOx4 [place] Coma Scale Eye Opening: Spontaneous [place] Coma Scale Verbal: Oriented [place] Coma Scale Motor: Obeys Commands [place] Coma Scale Total: 15 Speech: Normal - Psychological Associated symptoms: Normal affect, Normal mood, Other - calm - Skin Skin Temperature: Warm Skin Moisture: Dry Skin Color: Normal <MALIK DEUTSCHRICIA - Last Filed: 07/13/19 19:55> - Vital signs Vitals: Temp Pulse Resp BP Pulse Ox 97.5 F 105 H 16 142/92 H 94 07/12/19 14:22 07/12/19 14:22 07/12/19 14:22 07/12/19 14:22 07/12/19 14:22 Course - Laboratory Result Diagrams: 07/12/19 15:15 07/12/19 15:15 <DINA GERMAIN - Last Filed: 07/13/19 09:24> - Laboratory Result Diagrams: 07/12/19 15:15 07/12/19 15:15 - EKG Interpretation by Me EKG shows normal: Sinus rhythm Rate: Normal Rhythm: NSR <DARREN DEUTSCH - Last Filed: 07/13/19 19:55> - Re-evaluation Re-evalutation: 07/12/19 16:48 This 49-year-old female presents to the emergency department with suicidal ideations. She reports she took a new medication for her multiple sclerosis today, aubagio, right away started having suicidal ideations. She reports she is never had this in the past. Reports she laid on the couch and curled up in a ball and didnt want to wake up. reports is not like her. Patient reports that she is also diabetic and this medication should not be mixed with diabetes. She is worried her neurologist did not evaluate this fully. Patient also reports she has a history of anxiety she starts to become very tearful when she was instructed that she could not keep her tablet or her cell phone while she was at the hospital. I discussed the importance of keeping her safe. will be bringing her a paper back book. We also discussed her medications. Apparently she takes 27 different medications. He reports that we do not have 6 of them here. He plans on going home to bring the medications back. I contacted the pharmacy to ask them to to come to a med reconciliation as soon as possible. 07/12/19 20:17 Med reconciliation completed. Patient will be receiving her medications. She is very tearful. Requesting to leave. We discussed the reason was why she was here. She reports she never said she felt like killing herself. I reminded her that she reported that she wanted to curl up in a ball and not wake up. She agrees with this but she never said she wanted to kill herself. 07/12/19 20:20 Report given to LAM Merrill . 07/13/19 08:00 Patient sitting calmly on the edge of the bed. Reports she did not sleep very well due to the noise in the emergency department. She denies suicidal or homicidal ideations she is ready to go home. She reports she is not going to take the medication ever again. She reports she is going to contact her neurologist for follow-up appointment today. Plan to discharge after behavioral health interviews patient this morning. 07/13/19 09:37 Monique from [facility] is been in to assess patient she denies suicidal ideations. Dr. Pearce has rescinded the 24-hour hold. 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 She was again reminded to follow-up with her neurologist. She verbalized understand all instructions. Dictation of this chart was performed using voice recognition software; therefore, there may be some unintended grammatical errors. 07/12/19 15:15 07/12/19 15:15 MCV 85 fl (80-97) 07/12/19 15:15 MCH 28.3 pg (27.0-33.4) 07/12/19 15:15 MCHC 33.2 g/dL (32.0-36.0) 07/12/19 15:15 RDW 18.1 % (11.5-14.0) H 07/12/19 15:15 Seg Neutrophils % 61.2 % (42-78) 07/12/19 15:15 Chloride 100 mmol/L (98-107) 07/12/19 15:15 Carbon Dioxide 26 mmol/L (22-30) 07/12/19 15:15 Anion Gap 13 (5-19) 07/12/19 15:15 Est GFR ( Amer) > 60 (>60) 07/12/19 15:15 Glucose 254 mg/dL (75-110) H 07/12/19 15:15 Calcium 9.7 mg/dL (8.4-10.2) 07/12/19 15:15 Total Bilirubin 0.3 mg/dL (0.2-1.3) 07/12/19 15:15 AST 24 U/L (14-36) 07/12/19 15:15 Alkaline Phosphatase 95 U/L (38-126) 07/12/19 15:15 Total Protein 7.0 g/dL (6.3-8.2) 07/12/19 15:15 Albumin 4.1 g/dL (3.5-5.0) 07/12/19 15:15 Serum HCG, Qual NEGATIVE (NEGATIVE) 07/12/19 15:15 Urine Color STRAW 07/12/19 15:15 Urine Appearance CLEAR 07/12/19 15:15 Urine pH 5.0 (5.0-9.0) 07/12/19 15:15 Ur Specific Liguori 1.005 07/12/19 15:15 Urine Protein NEGATIVE mg/dL (NEGATIVE) 07/12/19 15:15 Urine Glucose (UA) 50 mg/dL (NEGATIVE) H 07/12/19 15:15 Urine Ketones NEGATIVE mg/dL (NEGATIVE) 07/12/19 15:15 Urine Blood NEGATIVE (NEGATIVE) 07/12/19 15:15 Urine Nitrite NEGATIVE (NEGATIVE) 07/12/19 15:15 Ur Leukocyte Esterase NEGATIVE (NEGATIVE) 07/12/19 15:15 Urine WBC (Auto) 1 /HPF 07/12/19 15:15 (DEUTSCH,DARREN) - Vital Signs Vital signs: Temp Pulse Resp BP Pulse Ox 98.2 F 99 20 127/77 H 94 07/13/19 08:00 07/13/19 08:00 07/13/19 08:00 07/13/19 08:00 07/13/19 08:00 - Laboratory Laboratory results interpreted by me: 07/12/19 07/12/19 07/12/19 15:15 15:15 15:15 RDW 18.1 H Glucose 254 H POC Glucose Urine Glucose (UA) 50 H Salicylates < 1.0 L Acetaminophen < 10 L 07/12/19 07/13/19 20:26 07:37 RDW Glucose POC Glucose 247 H 271 H Urine Glucose (UA) Salicylates Acetaminophen - EKG Interpretation by Me Additional EKG results interpreted by me: 07/12/19 20:[address] elevation no T wave inversion (DARREN DEUTSCH) Discharge <DINA GERMAIN - Last Filed: 07/13/19 09:24> <DEUTSCHDARREN - Last Filed: 07/13/19 19:55> - Discharge Clinical Impression: Suicidal ideation Condition: Stable Disposition: HOME, SELF-CARE Additional Instructions: You have been evaluated by both medical and behavioral health teams and have bee n deemed appropriate for discharge. Please follow up with your primary care physician or specialty care provider for any further medication related concerns. You have been provided with a community mental health resource list. You have also been provided with the contact information for mobile crisis, as needed. DEPRESSION: Your evaluation reveals that you have mental depression. While symptoms may be vague, they often include disturbance of sleep, fatigue, loss of appetite, an d general loss of interest in life. While depression may be a side effect of drugs, or a reaction to a major change in your life, many cases have no known cause. If depression is acute, and related to a major loss in your life, you can expect it to clear completely with time. If you have been depressed a long time, are prone to repeated bouts of depression or low mood, or have been thinking of suicide, get help. Depression can be treated with anti-depressant medication and counselling. Long-term depression will often take a few weeks to clear, even with appropriate medication. Follow-up care is important. SUICIDAL IDEATION: Suicidal ideation is a common medical term for thoughts about suicide, which may be as detailed as a formulated plan, without the suicidal act itself. Although most people who undergo suicidal ideation do not commit suicide, some go on to make suicide attempts. The range of suicidal ideation varies greatly from fleeting to detailed planning, role playing, and unsuccessful attempts. While thoughts about suicide are common, most people do not carry out serious actions to commit suicide. Based upon your evaluation and discussion with you, we do not believe you are currently at risk to act upon your thoughts of suicide. You have agreed to return to the Emergency Department, at any time, if you feel inclined to act upon your suicidal thoughts. FOLLOW-UP CARE: If you have been referred to a physician for follow-up care, call the [facility] office for an appointment as you were instructed or within the next two days. If you experience worsening or a significant change in your symptoms, notify the physician immediately or return to the Emergency Department at any time for re-evaluation. Forms: Elevated Blood Pressure Referrals: JARON LYON MD [Primary Care Provider] - Follow up as needed [facility] [Outside] - Follow up as needed
[2019-07-12] MEDS ORDERED: (PENDING PHARMACY ID) (Oxycodone Hcl/Acetaminophen [Percocet 7.5-325 Mg Tablet] 1 TAB) PO PRN (20:21)
[2019-07-12] MEDS ORDERED: TRAMADOL HCL 50 MG TABLET PO PRN (20:21)
[2019-07-12] MEDS ORDERED: ALBUTEROL SULFATE HFA (90 MCG/PUFF) 200 PUFF/8.5 GM MDI IH PRN (20:21)
[2019-07-12 20:34] VITALS: BP 127/77
[2019-07-12] MEDS ORDERED: OXYCODONE-ACETAMINOPHEN 5-325 MG TABLET PO PRN (20:36)
[2019-07-12] MEDS ORDERED: OXYCODONE HCL IR 5 MG TABLET PO PRN (20:37)
[2019-07-12] MEDS: CLONAZEPAM 1 MG TABLET PO SCH (21:13)
[2019-07-12] MEDS: GABAPENTIN 400 MG CAPSULE PO SCH (21:14)
[2019-07-12] MEDS ORDERED: (PENDING PHARMACY ID) (Eszopiclone [Lunesta] 1 MG) PO SCH (22:00)
[2019-07-12] MEDS ORDERED: ZOLPIDEM TARTRATE 5 MG TABLET PO SCH (22:00)
[2019-07-12] MEDS ORDERED: INSULIN GLARGINE,HUM.REC.ANLOG 1,000 UNIT/10 ML VIAL SUBCUT SCH (22:00)
[2019-07-12] MEDS ORDERED: (PENDING PHARMACY ID) (Clonazepam [Klonopin] 0.5 MG) PO SCH (22:00)
--- NOTE | 2019-07-13 00:03 | EKG REPORT ---
SEVERITY:- NORMAL ECG - SINUS RHYTHM : Confirmed by: Fariba Field 13-Jul-2019 00:02:47
[2019-07-13] MEDS: GABAPENTIN 400 MG CAPSULE PO SCH (06:04)
[2019-07-13] MEDS ORDERED: INSULIN LISPRO 100 UNIT/ML 3 ML VIAL SUBCUT SCH (08:00)
[2019-07-13] MEDS ORDERED: INSULIN ASPART 8 UNIT SQ SCH (08:00)
--- NOTE | 2019-07-13 09:24 | PSYCHOLOGICAL NOTE ---
Psych Note - Psych Note Date seen by psych provider: 07/13/19 Time seen by psych provider: 08:55 Psych Note: Reason for consult: Reevaluation Patient presented to ED via POV. Patient is a 49-year-old female who presented with suicidal ideations following a recent medication change. Patient stated she was prescribed and Aubagio, and two and a half hours after she took the pill she began overwhelmed with suicidal ideations. Patient denied a history of suicidal ideations. Patient reports feeling much better than yesterday. Patient spoke of her expressing concern about the suicidal ideations escalating at night and not being with us anymore. Patient stated she was pleased that her doctor got on the phone with me in person. Patient described this experience as scary. Patient reports experiencing anxiety and depression before, but nothing like this, ever. Patient denies any further issues or concerns. Patient is alert and oriented to person, place, time and circumstance. Mood is euthymic with congruent affect as evidenced by smiling, laughing and engaging with clinician. Patient denies suicidal and homicidal ideation. Delusions are absent and behavior is congruent with an intact reality based presentation (i.e. organized and linear thought processes). Patient denies auditory and visual hallucinations. There is no observed behavior that suggests patient is responding to internal stimuli. Eye contact is good. Conversational speech is within normal rate, tone, and prosody. Intellectual ability appears to be within average range. Attention and concentration are good. Insight, judgment, and impulse control are good. DSM Diagnosis: Per report, Anxiety Per report, Depression Medication recommendations per [facility] contracted psychiatrist Dr. Kelsea MARTINEZ is as follows: NONE Impression/Plan: Patient is cleared from acute psychiatric services. Patient does not meet IVC criteria per [place] GS 122C. It is recommended that 24 hour IVC petition be rescinded. Patient denies auditory and visual hallucinations. Patie nt denies suicidal and homicidal ideations. Patient has a strong support system with . Patients spouse has agreed to be responsible for monitoring patients recovery and will continue to assist with medication management and administration. Patient endorsement of suicidal ideation is felt to be correlated with new prescribed medication. Patient denies a history of suicidal ideations. Dr. Turpin was consulted on the care and management of this patient; attending physician is in agreement with recommendations and disposition.
[2019-07-13] MEDS ORDERED: VENLAFAXINE HCL 75 MG CAP.SR.24H PO SCH (10:00)
[2019-07-13] MEDS ORDERED: LORATADINE 10 MG TABLET PO SCH (10:00)
[2019-07-13] MEDS ORDERED: ARIPIPRAZOLE 5 MG TABLET PO SCH (10:00)
[2019-07-13] MEDS ORDERED: (PENDING PHARMACY ID) (Liraglutide [Victoza 2-Pak] 1.8 MG) SUBCUT SCH (10:00)
[2019-07-13] MEDS ORDERED: MYCOPHENOLATE MOFETIL 250 MG CAPSULE PO SCH (10:00)
[2019-07-13] MEDS ORDERED: FLUTICASONE NASAL SPRAY 50 MCG/SPRY 120 SPRAY/16 GM NASL SCH (10:00)
[2019-07-13] MEDS: CLONAZEPAM 1 MG TABLET PO SCH (10:04)
== END 2019-07-13 10:05 | disposition home or self-care (01) ==
LOC: ER 14:17
DX: G35 Multiple sclerosis (principal); F32.9 Major depressive disorder, single episode, unspecified; R45.851 Suicidal ideations; G89.29 Other chronic pain; Z91.040 Latex allergy status; Z88.3 Allergy status to other anti-infective agents; Z88.0 Allergy status to penicillin; E78.00 Pure hypercholesterolemia, unspecified; I10 Essential (primary) hypertension; E11.9 Type 2 diabetes mellitus without complications; Z90.49 Acquired absence of other specified parts of digestive tract
CPT/HCPCS: 93005; 99285; 36415; 82962; 80307 ×4; 84703; 85025; 80053; 81001; 93010; A9270 ×12; J1815; J7517

== ENCOUNTER 2019-08-10 12:27 | Emergency (ER) | payer MEDICARE, OTHER ==
--- NOTE | 2019-08-10 13:14 | ER Document Report ---
HPI - HPI Time Seen by Provider: 08/10/19 12:49 Pain Level: 0 Notes: 49-year-old female presents the emergency room for evaluation of bleeding status post tooth extraction approximately 2 days ago. Patient is on anticoagulation, Coumadin, her INR needs to stay at 2.5P. Pt reports she kept the partial in since the extraction x 2 days ago and reports after she took her partial out at 10:30 this am her gums began to bleed at the site of extraction. Pt has gauze in mouth now in which she is biting on the gauze in order to control the bleeding. Pt reports slight dizziness. Patient states she started feel dizzy at the site of the blood. Patient states she noticed that her bleeding is starting to lessen since she has been in the emergency room. Has not tried any [id number] medications. Denies fevers, chills, chest pain,palpitations, shortness of breath, dyspnea, nausea, vomiting, diarrhea, abdominal pain, hematuria,blurred vision, double vision, loss of vision, speech changes, LH, syncope, headaches, wheezing, ST, URI, neck pain, weakness, bowel or bladder dysfunction, saddle anesthesia, numbness or tingling in bilateral upper or lower extremities equally, muscle paralysis, weakness in bilateral upper or lower extremities equally or rash. REVIEW OF SYSTEMS:reviewed vital signs by RN CONSTITUTIONAL : Denies fever, chills, or sweats. Denies recent illness. EENT: Denies eye, ear, throat, or mouth pain or symptoms. Denies nasal or si nus congestion or discharge. Denies throat, tongue, or mouth swelling or difficulty swallowing.reports bleeding gums for site of tooth extraction. CARDIOVASCULAR: Denies chest pain. Denies palpitations or racing or irregular heart beat. Denies ankle edema. RESPIRATORY: Denies cough, cold, or chest congestion. Denies shortness of breath, difficulty breathing, or wheezing. GASTROINTESTINAL: Denies abdominal pain or distention. Denies nausea, vomiting, or diarrhea. Denies blood in vomitus, stools, or per rectum. Denies black, tarry stools. Denies constipation. GENITOURINARY: Denies difficulty urinating, painful urination, burning, frequency, blood in urine, or discharge. FEMALE GENITOURINARY: Denies vaginal bleeding, heavy or abnormal periods, irregular periods. Denies vaginal discharge or odor. MUSCULOSKELETAL: Denies back or neck pain or stiffness. Denies joint pain or swelling. SKIN: Denies rash, lesions or sores. HEMATOLOGIC : Denies easy bruising or bleeding. LYMPHATIC: Denies swollen, enlarged glands. NEUROLOGICAL: Denies confusion or altered mental status. Denies passing out or loss of consciousness. Denies dizziness or lightheadedness. Denies headache. Denies weakness or paralysis or loss of use of either side. Denies problems with gait or speech. Denies sensory loss, numbness, or tingling. Denies seizures. PSYCHIATRIC: Denies anxiety or stress. Denies depression, suicidal ideation, or homicidal ideation. ALL OTHER SYSTEMS REVIEWED AND NEGATIVE. PHYSICAL EXAMINATION: GENERAL: Well-appearing, well-nourished and in no acute distress. HEAD: Atraumatic, normocephalic. EYES: Pupils equal round and reactive to light, extraocular movements intact, conjunctiva are normal. ENT: Nares patent, oropharynx clear without exudates. Moist mucous membranes. # #27 gingiva with swelling and scant bleeding. No fluctuance. No facial swelling. no trismus noted. Uvula is midline NECK: Normal range of motion, supple without lymphadenopathy LUNGS: Breath sounds clear to auscultation bilaterally and equal. No wheezes rales or rhonchi. HEART: Regular rate and rhythm without murmurs ABDOMEN: Soft, nontender, nondistended abdomen. No guarding, no rebound. No masses appreciated. Female : deferred Musculoskeletal: Normal range of motion, no pitting or edema. No cyanosis. NEUROLOGICAL: Cranial nerves grossly intact. Normal speech, normal gait. Normal sensory, motor exams PSYCH: Normal mood, normal affect. SKIN: Warm, Dry, normal turgor, no rashes or lesions noted. Dictation was performed using [employer] voice recognition software - CONSTITUTIONAL Constitutional: DENIES: Fever, Chills - EENT EENT: DENIES: Sore Throat, Ear Pain, Eye problems - NEURO Neurology: DENIES: Headache, Weakness, Vision blurred, Dizzinesss / Vertigo - CARDIOVASCULAR Cardiovascular: DENIES: Chest pain - RESPIRATORY Respiratory: DENIES: Trouble Breathing, Coughing - GASTROINTESTINAL Gastrointestinal: DENIES: Abdominal Pain, Black / Bloody Stools - URINARY Urinary: DENIES: Dysuria, Urgency, Frequency - REPRODUCTIVE Reproductive: DENIES: : - MUSCULOSKELETAL Musculoskeletal: DENIES: Extremity pain Past Medical History - Social History Smoking Status: Never Smoker Chew tobacco use (# tins/day): No Frequency of alcohol use: None Drug Abuse: None Family History: Hypertension Patient has suicidal ideation: No Patient has homicidal ideation: No - Past Medical History Cardiac Medical History: Reports: Hx Hypercholesterolemia, Hx Hypertension Denies: Hx Coronary Artery Disease, Hx Heart Attack Pulmonary Medical History: Reports: Hx Pneumonia - hx of in past Denies: Hx Asthma, Hx Bronchitis, Hx COPD Neurological Medical History: Reports: Hx Cerebrovascular Accident - 2014, Hx Migraine, Hx Seizures - x1, poss seizure/stroke second time Endocrine Medical History: Reports: Hx Diabetes Mellitus Type 2 Renal/ Medical History: Denies: Hx Peritoneal Dialysis GI Medical History: Reports: Hx Gastroesophageal Reflux Disease Musculoskeletal Medical History: Reports Hx Arthritis - osteoarthritis, Reports Hx Fibromyalgia, Reports Hx Multiple Sclerosis Psychiatric Medical History: Reports: Hx Depression Past Surgical History: Reports: Hx Appendectomy, Hx Section - 2, Hx Cholecystectomy, Hx Gynecologic Surgery. Denies: Hx Hysterectomy - Immunizations Immunizations up to date: Yes Hx Diphtheria, Pertussis, Tetanus Vaccination: Yes Vertical Provider Document - INFECTION CONTROL TRAVEL OUTSIDE OF THE [place] IN LAST 30 DAYS: No Course - Vital Signs Vital signs: Temp Pulse Resp BP Pulse Ox 98.4 F 91 18 131/81 H 96 08/10/19 12:47 08/10/19 12:47 08/10/19 12:47 08/10/19 12:47 08/10/19 12:47 Discharge - Discharge Clinical Impression: S/P tooth extraction, Anticoagulated on Coumadin Referrals: JARON LYON MD [Primary Care Provider] - Follow up as needed
[2019-08-10 13:17] LABS: ABSOLUTE LYMPHOCYTES (AUTO) 1.6 10^3/uL (0.5-4.7); ABSOLUTE MONOCYTES (AUTO) 0.3 10^3/uL (0.1-1.4); ABSOLUTE NEUT (AUTO) 8.8 10^3/uL (1.7-8.2); BASOPHILS % (AUTO) 0.2 % (0-2); EOSINOPHILS % (AUTO) 0.2 % (0-6); HEMATOCRIT 42.6 % (36.0-47.0); HEMOGLOBIN 14.2 g/dL (12.0-15.5); LYMPHOCYTES % (AUTO) 14.9 % (13-45); MEAN CORPUSCULAR HEMOGLOBIN 28.6 pg (27.0-33.4); MEAN CORPUSCULAR HGB CONC 33.3 g/dL (32.0-36.0); MEAN CORPUSCULAR VOLUME 86 fl (80-97); MONOCYTES % (AUTO) 3.1 % (3-13); PLATELET COUNT 216 10^3/uL (150-450); RED BLOOD COUNT 4.96 10^6/uL (3.72-5.28); RED CELL DISTRIBUTION WIDTH 17.4 % (11.5-14.0); SEGMENTED NEUTROPHILS % (AUTO) 81.6 % (42-78); TOTAL CELLS COUNTED % (AUTO) 100 %; WHITE BLOOD COUNT 10.8 10^3/uL (4.0-10.5)
[2019-08-10 13:54] LABS: PROTHROMBIN TIME 40.9 SEC (11.4-15.4)
[2019-08-10 13:55] LABS: PARTIAL THROMBOPLASTIN TIME 69.8 SEC (23.5-35.8)
--- NOTE | 2019-08-10 14:10 | ER Document Report ---
ED Medical Screen (RME) - General Chief Complaint: Bleeding Gums Stated Complaint: TOOTHE EXTRACTION BLEEDING Time Seen by Provider: 08/10/19 12:49 Primary Care Provider: JARON LYON MD [Primary Care Provider] - Follow up as needed Mode of Arrival: Ambulatory TRAVEL OUTSIDE OF THE [place] IN LAST 30 DAYS: No - HPI Notes: 08/10/19 14:07 49-year-old female presents the emergency room for evaluation of bleeding status post tooth extraction approximately 2 days ago. Patient is on anticoagulation, Coumadin, her INR needs to stay at 2- 2.5 for antiphysolipid antibody syndrome, which is a rare syndrome for MS. Pt reports she kept the partial in since the extraction x 2 days ago and reports after she took her partial out at 10:30 this am her gums began to bleed at the site of extraction. Pt has gauze in mouth now in which she is biting on the gauze in order to control the bleeding. Pt reports slight dizziness. Patient states she started feel dizzy at the site of the blood. Patient states she noticed that her bleeding is starting to lessen since she has been in the emergency room. Has not tried any [id number] medications. Denies fevers, chills, chest pain,palpitations, shortness of breath, dyspnea, nausea, vomiting, diarrhea, abdominal pain, hematuria,blurred vision, double vision, loss of vision, speech changes, LH, syncope, headaches, wheezing, ST, URI, neck pain, weakness, bowel or bladder dysfunction, saddle anesthesia, numbness or tingling in bilateral upper or lower extremities equally, muscle paralysis, weakness in bilateral upper or lower extremities equally Patient's PCP is Dr. Jaron [facility] I have greeted and performed a rapid initial assessment of this patient. A comprehensive ED assessment and evaluation of the patient, analysis of test results and completion of the medical decision making process will be conducted by additional ED providers. PHYSICAL EXAMINATION: GENERAL: Well-appearing, well-nourished and in no acute distress. HEAD: Atraumatic, normocephalic. EYES: Pupils equal round extraocular movements intact, conjunctiva are normal. ENT: Nares patent. #27 extraction with small hematoma. No trismus, noted bruising to right mandible. Speech is clear. NECK: Normal range of motion LUNGS: No respiratory distress Musculoskeletal: Normal range of motion NEUROLOGICAL: Normal speech, normal gait. PSYCH: Normal mood, normal affect. SKIN: Warm, Dry, normal turgor, no rashes or lesions noted. 08/10/19 14:09 - Related Data Allergies/Adverse Reactions: adhesive [Adhesive] Allergy (Severe, Verified 07/12/19 14:28) Blisters latex [Latex] Allergy (Severe, Verified 07/12/19 14:28) Hives polyethylene glycol 3350 [From Miralax] Allergy (Severe, Verified 07/12/19 14:28) na and v rash povidone-iodine [From Betadine] Allergy (Severe, Verified 07/12/19 14:28) Blisters Soap [From Betadine] Allergy (Severe, Verified 07/12/19 14:28) Blisters Penicillins Allergy (Mild, Verified 07/12/19 14:28) Hives ciprofloxacin Allergy (Verified 07/12/19 14:28) levofloxacin [From Levaquin] Allergy (Verified 07/12/19 14:28) teriflunomide [From Aubagio] Adverse Reaction (Severe, Verified 07/13/19 10:06) suicidal, depression bee sting Allergy (Severe, Uncoded 07/12/19 14:28) Anaphylaxis hurricane spray Allergy (Severe, Uncoded 07/12/19 14:28) Shortness of Breath Past Medical History - Social History Chew tobacco use (# tins/day): No Frequency of alcohol use: None Drug Abuse: None - Past Medical History Cardiac Medical History: Reports: Hx Hypercholesterolemia, Hx Hypertension Denies: Hx Coronary Artery Disease, Hx Heart Attack Pulmonary Medical History: Reports: Hx Pneumonia - hx of in past Denies: Hx Asthma, Hx Bronchitis, Hx COPD Neurological Medical History: Reports: Hx Cerebrovascular Accident - 2014, Hx Migraine, Hx Seizures - x1, poss seizure/stroke second time Endocrine Medical History: Reports: Hx Diabetes Mellitus Type 2 Renal/ Medical History: Denies: Hx Peritoneal Dialysis GI Medical History: Reports: Hx Gastroesophageal Reflux Disease Musculoskeltal Medical History: Reports Hx Arthritis - osteoarthritis, Reports Hx Fibromyalgia, Reports Hx Multiple Sclerosis Psychiatric Medical History: Reports: Hx Depression Past Surgical History: Reports: Hx Appendectomy, Hx Section - 2, Hx Cholecystectomy, Hx Gynecologic Surgery. Denies: Hx Hysterectomy - Immunizations Immunizations up to date: Yes Hx Diphtheria, Pertussis, Tetanus Vaccination: Yes Physical Exam - Vital signs Vitals: Temp Pulse Resp BP Pulse Ox 98.4 F 91 18 131/81 H 96 08/10/19 12:38 08/10/19 12:38 08/10/19 12:38 08/10/19 12:38 08/10/19 12:38 Course - Vital Signs Vital signs: Temp Pulse Resp BP Pulse Ox 98.4 F 91 18 131/81 H 96 08/10/19 12:47 08/10/19 12:47 08/10/19 12:47 08/10/19 12:47 08/10/19 12:47 - Laboratory Result Diagrams: 08/10/19 13:02 Laboratory results interpreted by me: 08/10/19 08/10/19 13:02 13:02 WBC 10.8 H RDW 17.4 H Absolute Neuts (auto) 8.8 H Seg Neutrophils % 81.6 H PT 40.9 H APTT 69.8 H Doctor's Discharge - Discharge Clinical Impression: S/P tooth extraction, Anticoagulated on Coumadin Referrals: JARON LYON MD [Primary Care Provider] - Follow up as needed
--- NOTE | 2019-08-10 15:44 | ER Document Report ---
ED General - General Chief Complaint: Bleeding Gums Stated Complaint: TOOTHE EXTRACTION BLEEDING Time Seen by Provider: 08/10/19 12:49 Primary Care Provider: JARON LYON MD [Primary Care Provider] - Follow up as needed Mode of Arrival: Ambulatory Notes: Mrs. Lynch is a 49-year-old female with PMH of antiphospholipid syndrome on Coumadin, RA, SLE, MS, asthma, mild COPD, hypertension, hyperlipidemia, and diabetes presenting to the ED for right frontal tooth bleeding. Patient states that she had a dental extraction this past Wednesday at 4 PM. However she is on Coumadin as well for her antiphospholipid syndrome. Patient states that around 1030 this morning, she started having some profuse bleeding from the right lower anterior tooth which was extracted. She states she became slightly lightheaded at that point in time. Bleeding was ongoing for approximately an hour and a half. She attempted to call her dentist however was unable to get in with them. Patient presented to the ED however within the past 1 to 2 hours, the patient's bleeding has completely stopped. She was told by her dentist to wear her partial dentures to protect the dental extraction site. Patient denies any chest pain, shortness of breath, or fatigue. She denies any nausea, vomiting or diarrhea. She is a remote heavy smoker but quit in 1999. Patient states she is supposed to be on Coumadin 7.5 mg Wednesday, Wednesday, Wednesday and Wednesday. The other days of the week she takes 5 mg of Coumadin. Patient denies any fevers or chills. Patient denies any trauma to the oral cavity. TRAVEL OUTSIDE OF THE [place] IN LAST 30 DAYS: No - Related Data Allergies/Adverse Reactions: adhesive [Adhesive] Allergy (Severe, Verified 07/12/19 14:28) Blisters latex [Latex] Allergy (Severe, Verified 07/12/19 14:28) Hives polyethylene glycol 3350 [From Miralax] Allergy (Severe, Verified 07/12/19 14:28) na and v rash povidone-iodine [From Betadine] Allergy (Severe, Verified 07/12/19 14:28) Blisters Soap [From Betadine] Allergy (Severe, Verified 07/12/19 14:28) Blisters Penicillins Allergy (Mild, Verified 07/12/19 14:28) Hives ciprofloxacin Allergy (Verified 07/12/19 14:28) levofloxacin [From Levaquin] Allergy (Verified 07/12/19 14:28) teriflunomide [From Aubagio] Adverse Reaction (Severe, Verified 07/13/19 10:06) suicidal, depression bee sting Allergy (Severe, Uncoded 07/12/19 14:28) Anaphylaxis hurricane spray Allergy (Severe, Uncoded 07/12/19 14:28) Shortness of Breath Past Medical History - Social History Smoking Status: Never Smoker Chew tobacco use (# tins/day): No Frequency of alcohol use: None Drug Abuse: None Family History: Hypertension Patient has suicidal ideation: No Patient has homicidal ideation: No - Past Medical History Cardiac Medical History: Reports: Hx Hypercholesterolemia, Hx Hypertension Denies: Hx Coronary Artery Disease, Hx Heart Attack Pulmonary Medical History: Reports: Hx Pneumonia - hx of in past Denies: Hx Asthma, Hx Bronchitis, Hx COPD Neurological Medical History: Reports: Hx Cerebrovascular Accident - 2014, Hx Migraine, Hx Seizures - x1, poss seizure/stroke second time Endocrine Medical History: Reports: Hx Diabetes Mellitus Type 2 Renal/ Medical History: Denies: Hx Peritoneal Dialysis GI Medical History: Reports: Hx Gastroesophageal Reflux Disease Musculoskeletal Medical History: Reports Hx Arthritis - osteoarthritis, Reports Hx Fibromyalgia, Reports Hx Multiple Sclerosis Psychiatric Medical History: Reports: Hx Depression Past Surgical History: Reports: Hx Appendectomy, Hx Section - 2, Hx Cholecystectomy, Hx Gynecologic Surgery. Denies: Hx Hysterectomy - Immunizations Immunizations up to date: Yes Hx Diphtheria, Pertussis, Tetanus Vaccination: Yes Review of Systems - Review of Systems Constitutional: See HPI EENT: See HPI Cardiovascular: No symptoms reported Respiratory: No symptoms reported Gastrointestinal: No symptoms reported Genitourinary: No symptoms reported Female Genitourinary: No symptoms reported Musculoskeletal: No symptoms reported Skin: No symptoms reported Hematologic/Lymphatic: No symptoms reported Neurological/Psychological: No symptoms reported Physical Exam - Vital signs Vitals: Temp Pulse Resp BP Pulse Ox 98.4 F 91 18 131/81 H 96 08/10/19 12:38 08/10/19 12:38 08/10/19 12:38 08/10/19 12:38 08/10/19 12:38 Interpretation: Normal - General General appearance: Appears well, Alert - HEENT Head: Normocephalic, Atraumatic Eyes: Normal Pupils: PERRL Teeth diagram: 1 - Patient is status post dental extraction. There is a hemostatic clot in place. No active bleeding. 2 - Missing dentition. - Respiratory Respiratory status: No respiratory distress Chest status: Nontender Breath sounds: Normal Chest palpation: Normal - Cardiovascular Rhythm: Regular Heart sounds: Normal auscultation Murmur: No - Abdominal Inspection: Normal Distension: No distension Bowel sounds: Normal Tenderness: Nontender Organomegaly: No organomegaly - Back Back: Normal, Nontender - Extremities General upper extremity: Normal inspection, Nontender, Normal color, Normal ROM, Normal temperature General lower extremity: Normal inspection, Nontender, Normal color, Normal ROM, Normal temperature, Normal weight bearing. No: Ja's sign - Neurological Neuro grossly intact: Yes Cognition: Normal Orientation: AAOx4 [place] Coma Scale Eye Opening: Spontaneous [place] Coma Scale Verbal: Oriented [place] Coma Scale Motor: Obeys Commands Michelle Coma Scale Total: 15 Speech: Normal Motor strength normal: LUE, RUE, LLE, RLE Sensory: Normal - Psychological Associated symptoms: Normal affect, Normal mood - Skin Skin Temperature: Warm Skin Moisture: Dry Skin Color: Normal Course - Re-evaluation Re-evalutation: Patient is generally well-appearing nontoxic. Initial vitals within normal limits. Differential diagnosis includes hypercoagulable state, anemia, acute blood loss, traumatic injury to the tooth. 08/10/19 15:43 Given that the patient's H&H is stable, no evidence that there was significant hemorrhage. Also patient's bleeding was much earlier this morning and had stopped by the time she presented to the ED so this is likely an accurate number. Her INR is elevated however at 4.1. 08/10/19 15:46 Recommended to the patient that she hold her Coumadin for this evening. And reinitiate her Coumadin tomorrow. Patient states that she has a machine at home to check and will check her INR on Wednesday or Wednesday and then follow-up with her primary care doctor. Patient given return precautions instructed to avoid any foods that are sharp and could re-injure the clot that formed from a tooth extraction. - Vital Signs Vital signs: Temp Pulse Resp BP Pulse Ox 98.4 F 91 18 131/81 H 96 08/10/19 12:47 08/10/19 12:47 08/10/19 12:47 08/10/19 12:47 08/10/19 12:47 - Laboratory Result Diagrams: 08/10/19 13:02 Laboratory results interpreted by me: 08/10/19 08/10/19 13:02 13:02 WBC 10.8 H RDW 17.4 H Absolute Neuts (auto) 8.8 H Seg Neutrophils % 81.6 H PT 40.9 H APTT 69.8 H Discharge - Discharge Clinical Impression: S/P tooth extraction, Anticoagulated on Coumadin Condition: Good Disposition: HOME, SELF-CARE Additional Instructions: I would recommend that you hold your Coumadin for this evening. You can reinitiate your normal Coumadin dose tomorrow, Wednesday night. I would recommend that you also follow-up with your primary care doctor by early next week, to reassess your INR. I would avoid any foods that are sharp or pointy to help prevent the clot over the dental extraction site from being dislodged. Gargle with salt water. Continue wearing your partial dentures to protect the extraction site. Follow-up with your dentist as planned. Referrals: JARON LYON MD [Primary Care Provider] - Follow up as needed
[2019-08-10 16:11] VITALS: BP 126/74
== END 2019-08-10 16:10 | disposition home or self-care (01) ==
LOC: ER 12:27
DX: K08.409 Partial loss of teeth, unspecified cause, unspecified class (principal); D68.61 Antiphospholipid syndrome; Z79.01 Long term (current) use of anticoagulants; E11.9 Type 2 diabetes mellitus without complications; I10 Essential (primary) hypertension; Z87.891 Personal history of nicotine dependence; Z91.048 Other nonmedicinal substance allergy status; Z91.040 Latex allergy status; Z88.8 Allergy status to other drugs, medicaments and biological substances; Z88.3 Allergy status to other anti-infective agents; Z88.0 Allergy status to penicillin; Z88.1 Allergy status to other antibiotic agents; Z87.892 Personal history of anaphylaxis; Z91.030 Bee allergy status
CPT/HCPCS: 36415; 85025; 85610; 85730; 99283